=== PATIENT | female | born 1935 | race Caucasian/White ===

== ENCOUNTER 2016-12-07 17:23 | Inpatient (IN) | payer OTHER ==
[~2016-12-07] VITALS: Ht 147.3 cm; Wt 55.1 kg
[~2016-12-07 17:23] MED LIST: ATOR20TA58 PO; CLOP75TA PO; HYDR200T5 PO; IBUP200T77 PO; LEVO250T25 PO; LISI10TA2 PO; LOPE2CAP PO; LOSA50TA6 PO; NABU500T PO; OMEP40CA5 PO; PROM12.56 PO
[2016-12-07 18:29] LABS: BASO % 0 % (0-3); EOS % 0 % (0-3); HEMATOCRIT 27.9 % (36.0-47.0); LYMPH # 0.1 x10^3/uL (1.0-4.8); LYMPH % 1 % (24-48); MEAN CORPUSCULAR HEMOGLOBIN 27 pg (25-35); MEAN CORPUSCULAR HGB CONC 32 g/dL (31-37); MEAN CORPUSCULAR VOLUME 82 fL (79-100); MONO % 4 % (0-9); NEUT % 94 % (31-73); PLATELET COUNT 148 x10^3/uL (140-400); RED BLOOD COUNT 3.39 x10^6/uL (3.50-5.40); RED CELL DISTRIBUTION WIDTH 19.1 % (11.5-14.5); WHITE BLOOD COUNT 5.2 x10^3/uL (4.0-11.0)
[2016-12-07] MEDS ORDERED: IPRATRPIUM/ALBUTEROL 0.5/2.5MG 3 ML NEBU. NEB ONE (18:30)
[2016-12-07 19:03] LABS: CALCIUM 8.3 mg/dL (8.5-10.1); CREATININE 0.9 mg/dL (0.6-1.0); GFR 60.4; POTASSIUM 4.3 mmol/L (3.5-5.1)
[2016-12-07 19:11] LABS: ALBUMIN 2.2 g/dL (3.4-5.0); ALBUMIN/GLOBULIN RATIO 0.7 (1.0-1.7); TOTAL BILIRUBIN 0.7 mg/dL (0.2-1.0); TOTAL PROTEIN 5.5 g/dL (6.4-8.2)
[2016-12-07 19:15] LABS: OBC FLU VALID
[2016-12-07 19:31] LABS: ANISOCYTOSIS SLIGHT; OVALOCYTES FEW; PLT ESTIMATE ADEQUATE (ADEQUATE); POIKILOCYTOSIS MOD; SCHISTOCYTES FEW
[2016-12-07 19:32] LABS: TOXIC GRANULATION PRESENT
[2016-12-07] MEDS ORDERED: HEPARIN for IV BOLUS 10,000 UNIT/10 ML VIAL. IV PRN (20:00)
[2016-12-07] MEDS: HEPARIN 25,000UTS/500ML PREMIX 500 ML IV PRN (20:18)
[2016-12-07] MEDS ORDERED: HEPARIN for IV BOLUS 10,000 UNIT/10 ML VIAL. IV ONE (20:30)
[2016-12-07] MEDS ORDERED: VANCOMYCIN 1.5 GM in IV NORMAL SALINE 500ML BAG 500 ML IV ONE (20:30)
[2016-12-07] MEDS ORDERED: FUROSEMIDE 20 MG/2 ML VIAL IVP ONE (20:45)
[2016-12-07] MEDS: VANCOMYCIN PER PHARMACY MC PRN (21:11)
[2016-12-07 22:08] LABS: INR 1.2 (0.8-1.1); PROTHROMBIN TIME PATIENT 14.9 SEC (11.7-14.0)
[2016-12-07 22:14] LABS: PARTIAL THROMBOPLASTIN TIME > 150 SEC (24-38)
[2016-12-07] MEDS ORDERED: NITROGLYCERIN SUBLINGUAL 0.4 MG BOTTLE OF 25. SL PRN (22:15)
[2016-12-07] MEDS ORDERED: ONDANSETRON PF 4 MG/2 ML VIAL. IV PRN (22:15)
[2016-12-07] MEDS ORDERED: ACETAMINOPHEN 325 MG TABLET. PO PRN (22:15)
--- NOTE | 2016-12-07 23:20 | ED.ADGEN ---
Past Medical History Past Medical History: CVA, GERD, Hypertension Additional Past Medical Histor: Rt sided weakness Past Surgical History: No Surgical History Alcohol Use: None Drug Use: None Adult General Chief Complaint Chief Complaint: CHEST PAIN HPI HPI Patient is a 81 year old woman, history of hypertension, CVA with residual right-sided weakness, idiopathic pulmonary fibrosis, who is currently on doxycycline and oral steroids along with nebulizer treatments, who presents to the emergency department with a complaint of increased difficulty breathing and coughing over the past several days. Patient states that she was seen by several days ago, and as she was started on the antibiotics. She states she's been compliant with all medications. She has no history of cardiac disease. She states that she was woken from sleep by chest pain yesterday morning, states it is located in the center of her chest, a burning pressure sensation, and resolved after about half an hour. She denies any nausea or vomiting, any focal weakness numbness or tingling, any injuries. Denies any chest pain currently, complaining primarily of shortness of breath and nonproductive cough with generalized malaise, subjective fevers and chills. She did receive reflexive patient this year. Review of Systems Review of Systems Constitutional: Denies fever or chills. [] Eyes: Denies change in visual acuity. [] HENT: Denies nasal congestion or sore throat. [] Respiratory: Cough, shortness of breath worsening over the past several days. Cardiovascular: Chest pain that occurred yesterday, no edema. No chest pain since that time. GI: Denies abdominal pain, nausea, vomiting, bloody stools or diarrhea. [] : Denies dysuria. [] Musculoskeletal: Denies back pain or joint pain. [] Integument: Denies rash. [] Neurologic: Denies headache, focal weakness or sensory changes. [] Endocrine: Denies polyuria or polydipsia. [] Lymphatic: Denies swollen glands. [] Psychiatric: Denies depression or anxiety. [] Current Medications Current Medications Current Medications Medications (Trade) Dose Ordered Sig/Michela Start Time Stop Time Status Last Admin Dose Admin Acetaminophen (Tylenol) 650 mg PRN Q4HRS PRN 12/07/16 22:15 12/08/16 22:14 Albuterol/ Ipratropium (Duoneb) 3 ml RTQID 12/08/16 08:00 12/09/16 07:59 Albuterol/ Ipratropium 3 ml 3 ml 1X ONCE 12/07/16 18:30 12/07/16 18:31 DC 12/07/16 18:26 3 ML Furosemide 20 mg 20 mg 1X ONCE 12/07/16 20:45 12/07/16 20:46 DC 12/07/16 22:03 20 MG Heparin Sodium (Porcine) 1500 unit 1,500 unit PRN Q6HRS PRN 12/07/16 20:00 Heparin Sodium (Porcine) 3600 unit 3,600 unit 1X ONCE 12/07/16 20:30 12/07/16 20:31 DC 12/07/16 20:17 3,600 UNIT Heparin Sodium/ Dextrose 500 ml @ 0 mls/hr CONT PRN 12/07/16 20:00 12/07/16 20:18 14.5 MLS/HR Methylprednisolone Sodium Succinate (Solu-Medrol 40mg Vial) 40 mg Q8HRS 12/08/16 06:00 Nitroglycerin (Nitrostat) 0.4 mg PRN Q5MIN PRN 12/07/16 22:15 12/08/16 22:14 Ondansetron HCl (Zofran) 4 mg PRN Q8HRS PRN 12/07/16 22:15 12/08/16 22:14 Oseltamivir Phosphate (Tamiflu) 75 mg 1X ONCE 12/07/16 23:30 12/07/16 23:31 DC Piperacillin Sod/ Tazobactam Sod 3.375 gm/Sodium Chloride 50 ml @ 100 mls/hr Q6HRS 12/07/16 23:00 Piperacillin Sod/ Tazobactam Sod/ Sodium Chloride (Zosyn/Iv Sodium Chloride 0.9% 100ml) 100 ml @ 200 mls/hr Q6HRS 12/08/16 00:00 UNV Vancomycin HCl 1 each 1X ONCE 12/09/16 19:30 12/09/16 19:31 Vancomycin HCl (Vanco Per Pharmacy) 1 each PRN DAILY PRN 12/07/16 20:00 12/07/16 21:11 1 EACH Vancomycin HCl/ Sodium Chloride (Iv Sodium Chloride 0.9% 250ml) 250 ml @ 250 mls/hr Q24H 12/08/16 20:00 Vancomycin HCl/ Sodium Chloride (Iv Sodium Chloride 0.9% 500ml Bag) 500 ml @ 250 mls/hr 1X ONCE 12/07/16 20:30 12/07/16 22:29 DC 12/07/16 20:30 250 MLS/HR Allergies Allergies Allergies Coded Allergies Type Severity Reaction Last Updated Verified Sulfa (Sulfonamide Antibiotics) Allergy Intermediate 07/16/16 Yes Physical Exam Physical Exam Constitutional: Well developed, well nourished, no acute distress, non-toxic appearance. [] HENT: Normocephalic, atraumatic, bilateral external ears normal, oropharynx moist, no oral exudates, nose normal. [] Eyes: PERRLA, EOMI, conjunctiva normal, no discharge. [] Neck: Normal range of motion, no tenderness, supple, no stridor. [] Cardiovascular:Heart rate regular rhythm, no murmur [] Lungs & Thorax: Bilateral breath sounds clear to auscultation [] Abdomen: Bowel sounds normal, soft, no tenderness, no masses, no pulsatile masses. [] Skin: Warm, dry, no erythema, no rash. [] Back: No tenderness, no CVA tenderness. [] Extremities: No tenderness, no cyanosis, no clubbing, ROM intact, no edema. [] Neurologic: Alert and oriented X 3, normal motor function, normal sensory function, no focal deficits noted. [] Psychologic: Affect normal, judgement normal, mood normal. [] Current Patient Data Vital Signs Vital Signs Date Time Temp Pulse Resp B/P Pulse Ox O2 Delivery O2 Flow Rate FiO2 12/07/16 18:26 95 Room Air 12/07/16 17:50 98.3 87 26 157/75 98.3 Lab Values Laboratory Tests Test 12/07/16 18:15 12/07/16 18:18 12/07/16 21:52 Influenza Type A Antigen Positive (NEGATIVE) Influenza Type B Antigen Negative (NEGATIVE) White Blood Count 5.2x10^3/uL (4.0-11.0) Red Blood Count 3.39x10^6/uL (3.50-5.40) L Hemoglobin 9.0g/dL (12.0-15.5) L Hematocrit 27.9% (36.0-47.0) L Mean Corpuscular Volume 82fL (79-100) Mean Corpuscular Hemoglobin 27pg (25-35) Mean Corpuscular Hemoglobin Concent 32g/dL (31-37) Red Cell Distribution Width 19.1% (11.5-14.5) H Platelet Count 148x10^3/uL (140-400) Neutrophils (%) (Auto) 94% (31-73) H Lymphocytes (%) (Auto) 1% (24-48) L Monocytes (%) (Auto) 4% (0-9) Eosinophils (%) (Auto) 0% (0-3) Basophils (%) (Auto) 0% (0-3) Neutrophils # (Auto) 4.9x10^3uL (1.8-7.7) Lymphocytes # (Auto) 0.1x10^3/uL (1.0-4.8) L Monocytes # (Auto) 0.2x10^3/uL (0.0-1.1) Eosinophils # (Auto) 0.0x10^3/uL (0.0-0.7) Basophils # (Auto) 0.0x10^3/uL (0.0-0.2) Segmented Neutrophils % 77% (35-66) H Band Neutrophils % 17% (0-9) H Monocytes % 6% (0-10) Toxic Granulation Present Platelet Estimate Adequate (ADEQUATE) Poikilocytosis Mod Anisocytosis Slight Ovalocytes Few Schistocytes Few RBC Morphology Bizarre Forms Few Sodium Level 138mmol/L (136-145) Potassium Level 4.3mmol/L (3.5-5.1) Chloride Level 101mmol/L (98-107) Carbon Dioxide Level 25mmol/L (21-32) Anion Gap 12 (6-14) Blood Urea Nitrogen 22mg/dL (7-20) H Creatinine 0.9mg/dL (0.6-1.0) Estimated GFR (Cockcroft-Gault) 60.4 BUN/Creatinine Ratio 24 (6-20) H Glucose Level 174mg/dL (70-99) H Calcium Level 8.3mg/dL (8.5-10.1) L Total Bilirubin 0.7mg/dL (0.2-1.0) Aspartate Amino Transferase (AST) 42U/L (15-37) H Alanine Aminotransferase (ALT) 10U/L (14-59) L Alkaline Phosphatase 89U/L (46-116) Troponin I Quantitative 2.198ng/mL (0.000-0.055) LR-Yuy-E-Type Natriuretic Peptide 19305xa/mL (0-449) H Total Protein 5.5g/dL (6.4-8.2) L Albumin 2.2g/dL (3.4-5.0) L Albumin/Globulin Ratio 0.7 (1.0-1.7) L Prothrombin Time 14.9SEC (11.7-14.0) H Prothrombin Time INR 1.2 (0.8-1.1) H PTT > 150SEC (24-38) *H Laboratory Tests 12/07/16 18:18 Laboratory Tests 12/07/16 18:18 EKG EKG EC: Sinus rhythm, heart rate 90 beats minute, left axis deviation with left internal hypertrophy, QTC is prolonged at 509, HI 146, QRS of 90, patient with contour abnormalities noted in the inferior and anterior leads, but no ST elevations or depressions, abnormal ECG, does not meet STEMI criteria. Radiology/Procedures Radiology/Procedures Chest x-ray: One view: Patient with infiltrate versus scarring noted throughout the lungs bilaterally, with significant bronchopulmonary thickening, progressed swelling compared to previous x-ray. Possible infectious versus inflammatory process, may be chronic. As interpreted by me.] Course & Med Decision Making Course & Med Decision Making Pertinent Labs and Imaging studies reviewed. (See chart for details) Patient well-appearing, weak and coughing. Chest x-ray is concerning for possible worsening infiltrate versus CHF, versus underlying pulmonary fibrosis. Laboratory studies reveal a leukocytosis with left shift and mild bandemia, influenza A is positive in the ED. Patient was initiated on antibiotics due to her leukocytosis and x-ray findings, although this may be viral in nature, therefore patient also received Tamiflu. Patient's troponin was positive at 2.198, with an elevated proBNP. This was discussed with Dr. Hill of cardiology, who requests patient be anticoagulated with heparin, made nothing by mouth after midnight for catheterization in the a.m. Patient and family are agreeable with this plan when findings as above and recommendations were discussed at bedside, risk versus benefit of anticoagulation discussed in detail. Patient is resting comfortably at this time, oxygen saturation remains in the upper 90s, heart rate is in the 80s, respiratory rate is 20 and unlabored. Findings as above discussed with Dr. Rodriguez of internal medicine, patient accepted to her service as a full admission to the ICU. Patient initiated on antibiotics, heparin drip in the ED without issue. Dragon Disclaimer Dragon Disclaimer This electronic medical record was generated, in whole or in part, using a voice recognition dictation system. Departure Impression: Primary Impression: Elevated troponin Additional Impressions: Non-STEMI (non-ST elevated myocardial infarction) Influenza Idiopathic pulmonary fibrosis Disposition: ADMITTED INPATIENT Admitting Physician: Other Condition: IMPROVED Problem Qualifiers MANI NIXON DO Dec 07, 2016 23:20
[2016-12-07] MEDS ORDERED: OSELTAMIVIR 75 MG CAPSULE PO ONE (23:30)
[2016-12-08] VITALS (24 sets, daily range): BP systolic 96–138; BP diastolic 45–86
[2016-12-08] MEDS ORDERED: PIPERACILLIN/TAZOBACTAM 4.5 GM in IV NORMAL SALINE 100ML 100 ML IV SCH ×2
[2016-12-08] MEDS ORDERED: LOPERAMIDE 2 MG CAPSULE PO PRN (00:15)
[2016-12-08] MEDS: PIPERACILLIN/TAZOBACTAM 3.375 GM in IV NORMAL SALINE 50ML 50 ML IV SCH ×4 (00:35→17:15)
--- NOTE | 2016-12-08 00:38 | ACF ---
Admission Forms Criteria MYOCARDIAL INFARCTION Clinical Indications for Admission to Inpatient Care (Place 'X' for any and all applicable criteria): Admission is indicated for ANY ONE of the following (1)(2)(3)(4): [X]I. Acute MD [ ]II. Contraindications and/or Inappropriate clinical situations for Observational Care in patients with Myocardial Infarction, when ANY ONE of the following is required: [ ]a) Patient with High risk of cardiac embolism (e.g, patients with previous cardiac embolism, LVEF < 40%, age >75 and patients with prosthetic valve) 18 [ ]b) Patient with Moderate risk including DM patient, CAD and patient aged 65-75 18 [ ]c) Patient with any change in cardiac biomarker especially troponin should be managed as high risk in an inpatient setting 19 [ ]d) Physician judgement irrespective of ECG and other diagnostic findings 20 [ ]III.General contraindications and/or Inappropriate clinical situations for Observational Care in patients with Myocardial Infarction, when ANY ONE of the following is required: [ ]a) Prediction of prolongation of LOS based on ANY ONE of the following may be considered as a contraindication for observational care 2, 3, 4, 5, 6, 7, 8, 9, 10, 11 [ ]i) Age > 65 yrs. [ ]ii) Patient arriving by ambulance [ ]iii) Patient with high acuity [ ]iv) Patient requiring vital sign monitoring [ ]v) Patient on IV medication [ ]b) Systolic blood pressures 180mmHg 3,12 [ ]c) Patient with altered mental status including delirium and other alteration of consciousness, (3) [ ]d) Patient whose discharge disposition will be to a senior living home or rehabilitation home should not be managed in Emergency Department Observation Unit. CMS rule requires 3 days hospital stay before such placement. 3,13 [ ]e) Patient with failure to thrive due to broad array of etiologies 3 ,16,17 [ ]f) Inability to ambulate 3,14 Extended stay beyond goal length of stay may be needed for (1)(18)(20)(24)(25): [ ]a) Hemodynamic instability, persisting symptoms after intensive medical management, or recurring severe, prolonged symptoms [ ]b) Intravascular procedural complications such as acute vessel closure, stent thrombosis, stent malposition, or vessel dissection (26)(27)(28) [ ]c) Extravascular procedural complications such as retroperitoneal hematoma , pericardial effusion, or cardiac tamponade [ ]d) Entry site complications causing bleeding, hematoma or distal ischemia and requiring ongoing monitoring, surgical repair or surgical thrombectomy(29) [ ]e) Dangerous arrhythmia [ ]f) Complicated percutaneous coronary intervention (e.g., unsuccessful percutaneous coronary intervention or percutaneous coronary intervention of non- [place] vessel) [ ]g) Urgent or emergent surgery for complications of MD (e.g., ventricular rupture, valvular insufficiency) [ ]h) Surgical revascularization via coronary artery bypass graft [ ]i) Heart failure (e.g., pulmonary edema) [ ]j) Unstable pulmonary comorbidities, including COPD or pneumonia (31) [ ]k) Acute renal failure The original [email or web address] content created by [email or web address] has been revised. The portions of the content which have been revised are identified through the use of italic text or in bold, and [employer] has neither reviewed nor approved the modified material. All other unmodified content is copyright [facility] Please see references footnoted in the original [facility] edition 2016 Admission Criteria Met?: Yes GIOVANNY CLEMENTS Dec 08, 2016 00:38
[2016-12-08] MEDS ORDERED: PROAIR HFA8.5 GM INH (03:54)
[2016-12-08] MEDS ORDERED: MELO-150 PO (03:54)
[2016-12-08] MEDS ORDERED: LEFL10TA14 PO (03:54)
[2016-12-08] MEDS ORDERED: FOLI1TAB16 PO (03:54)
[2016-12-08] MEDS ORDERED: SENN8.6T11 PO (03:54)
[2016-12-08] MEDS ORDERED: PRED-220 PO (03:54)
[2016-12-08] MEDS ORDERED: TRAM50TA PO (03:54)
[2016-12-08] MEDS ORDERED: IBUPROFEN 200 MG TABLET PO PRN (06:00)
[2016-12-08] MEDS ORDERED: methylPREDNISolone SOD SUCC PF 40 MG/ML VIAL. IV SCH (06:00)
[2016-12-08] MEDS: LOSARTAN POTASSIUM 50 MG TABLET. PO SCH (08:22)
[2016-12-08] MEDS: CLOPIDOGREL BISULFATE 75 MG TABLET PO SCH (08:23)
[2016-12-08] MEDS: LISINOPRIL 10 MG TABLET PO SCH (08:24)
[2016-12-08] MEDS: OSELTAMIVIR 75 MG CAPSULE PO SCH ×2 (08:25→21:15)
[2016-12-08] MEDS: PANTOPRAZOLE 40 MG TABLET. PO SCH (08:26)
[2016-12-08] MEDS: FUROSEMIDE 20 MG TABLET PO SCH (08:26)
[2016-12-08] MEDS: HYDROXYCHLOROQUINE 200 MG TABLET PO SCH ×2 (08:27→21:15)
--- NOTE | 2016-12-08 08:27 | EKG ---
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
[2016-12-08] MEDS: IPRATRPIUM/ALBUTEROL 0.5/2.5MG 3 ML NEBU. NEB SCH ×4 (08:34→19:33)
--- NOTE | 2016-12-08 09:09 | RAD ---
Portable AP chest. History: Cough, chest pain, hypertension Portable AP view was taken of the chest. The patient is mildly rotated to the right. The mediastinum is widened with possible mediastinal adenopathy. Heart is normal in size. There is no pleural effusion. There is diffuse alveolar and interstitial lung disease. CT of the chest would be of benefit for further evaluation. Impression: 1. Bilateral infiltrates. 2. Possible mediastinal adenopathy.
[2016-12-08] MEDS: VANCOMYCIN PER PHARMACY MC PRN (09:23)
[2016-12-08] MEDS: ANTI-COAG MONITOR BY PHARMACY. MC PRN (09:30)
[2016-12-08 11:44] LABS: BASO % 1 % (0-3); EOS % 0 % (0-3); HEMOGLOBIN 8.7 g/dL (12.0-15.5); LYMPH # 0.2 x10^3/uL (1.0-4.8); LYMPH % 3 % (24-48); MEAN CORPUSCULAR HEMOGLOBIN 27 pg (25-35); MEAN CORPUSCULAR HGB CONC 32 g/dL (31-37); MEAN CORPUSCULAR VOLUME 82 fL (79-100); MONO % 5 % (0-9); NEUT % 92 % (31-73); PLATELET COUNT 141 x10^3/uL (140-400); RED BLOOD COUNT 3.28 x10^6/uL (3.50-5.40); RED CELL DISTRIBUTION WIDTH 18.5 % (11.5-14.5); WHITE BLOOD COUNT 6.1 x10^3/uL (4.0-11.0)
[2016-12-08 11:55] LABS: CALCIUM 8.4 mg/dL (8.5-10.1); GFR 53.5; POTASSIUM 3.3 mmol/L (3.5-5.1)
[2016-12-08] MEDS ORDERED: POTASSIUM CHLORIDE 20 MEQ TABLET.ER. PO ONE (12:30)
--- NOTE | 2016-12-08 13:21 | PDOC ---
PULMONARY PROGRESS NOTES Vitals Vital Signs Date Time Temp Pulse Resp B/P Pulse Ox O2 Delivery O2 Flow Rate FiO2 12/08/16 12:02 99 Nasal Cannula 2.0 12/08/16 12:00 98.6 90 19 101/80 98.6 Lungs: Clear Labs Laboratory Tests Test 12/07/16 18:15 12/07/16 18:18 12/07/16 21:52 12/08/16 02:30 Influenza Type A Antigen Positive (NEGATIVE) Influenza Type B Antigen Negative (NEGATIVE) White Blood Count 5.2x10^3/uL (4.0-11.0) Red Blood Count 3.39x10^6/uL (3.50-5.40) Hemoglobin 9.0g/dL (12.0-15.5) Hematocrit 27.9% (36.0-47.0) Mean Corpuscular Volume 82fL (79-100) Mean Corpuscular Hemoglobin 27pg (25-35) Mean Corpuscular Hemoglobin Concent 32g/dL (31-37) Red Cell Distribution Width 19.1% (11.5-14.5) Platelet Count 148x10^3/uL (140-400) Neutrophils (%) (Auto) 94% (31-73) Lymphocytes (%) (Auto) 1% (24-48) Monocytes (%) (Auto) 4% (0-9) Eosinophils (%) (Auto) 0% (0-3) Basophils (%) (Auto) 0% (0-3) Neutrophils # (Auto) 4.9x10^3uL (1.8-7.7) Lymphocytes # (Auto) 0.1x10^3/uL (1.0-4.8) Monocytes # (Auto) 0.2x10^3/uL (0.0-1.1) Eosinophils # (Auto) 0.0x10^3/uL (0.0-0.7) Basophils # (Auto) 0.0x10^3/uL (0.0-0.2) Segmented Neutrophils % 77% (35-66) Band Neutrophils % 17% (0-9) Monocytes % 6% (0-10) Toxic Granulation Present Platelet Estimate Adequate (ADEQUATE) Poikilocytosis Mod Anisocytosis Slight Ovalocytes Few Schistocytes Few RBC Morphology Bizarre Forms Few Sodium Level 138mmol/L (136-145) Potassium Level 4.3mmol/L (3.5-5.1) Chloride Level 101mmol/L (98-107) Carbon Dioxide Level 25mmol/L (21-32) Anion Gap 12 (6-14) Blood Urea Nitrogen 22mg/dL (7-20) Creatinine 0.9mg/dL (0.6-1.0) Estimated GFR (Cockcroft-Gault) 60.4 BUN/Creatinine Ratio 24 (6-20) Glucose Level 174mg/dL (70-99) Calcium Level 8.3mg/dL (8.5-10.1) Total Bilirubin 0.7mg/dL (0.2-1.0) Aspartate Amino Transf (AST/SGOT) 42U/L (15-37) Alanine Aminotransferase (ALT/SGPT) 10U/L (14-59) Alkaline Phosphatase 89U/L (46-116) Troponin I Quantitative 2.198ng/mL (0.000-0.055) 2.084ng/mL (0.000-0.055) XH-Xvv-C-Type Natriuretic Peptide 29286lv/mL (0-449) Total Protein 5.5g/dL (6.4-8.2) Albumin 2.2g/dL (3.4-5.0) Albumin/Globulin Ratio 0.7 (1.0-1.7) Prothrombin Time 14.9SEC (11.7-14.0) Prothromb Time International Ratio 1.2 (0.8-1.1) Activated Partial Thromboplast Time > 150SEC (24-38) Heparin Anti-Xa Act, Unfractionated 0.28IU/mL (0.30-0.70) Test 12/08/16 09:00 12/08/16 11:35 Heparin Anti-Xa Act, Unfractionated 0.52IU/mL (0.30-0.70) Troponin I Quantitative 1.331ng/mL (0.000-0.055) White Blood Count 6.1x10^3/uL (4.0-11.0) Red Blood Count 3.28x10^6/uL (3.50-5.40) Hemoglobin 8.7g/dL (12.0-15.5) Hematocrit 27.0% (36.0-47.0) Mean Corpuscular Volume 82fL (79-100) Mean Corpuscular Hemoglobin 27pg (25-35) Mean Corpuscular Hemoglobin Concent 32g/dL (31-37) Red Cell Distribution Width 18.5% (11.5-14.5) Platelet Count 141x10^3/uL (140-400) Neutrophils (%) (Auto) 92% (31-73) Lymphocytes (%) (Auto) 3% (24-48) Monocytes (%) (Auto) 5% (0-9) Eosinophils (%) (Auto) 0% (0-3) Basophils (%) (Auto) 1% (0-3) Neutrophils # (Auto) 5.6x10^3uL (1.8-7.7) Lymphocytes # (Auto) 0.2x10^3/uL (1.0-4.8) Monocytes # (Auto) 0.3x10^3/uL (0.0-1.1) Eosinophils # (Auto) 0.0x10^3/uL (0.0-0.7) Basophils # (Auto) 0.0x10^3/uL (0.0-0.2) Sodium Level 138mmol/L (136-145) Potassium Level 3.3mmol/L (3.5-5.1) Chloride Level 101mmol/L (98-107) Carbon Dioxide Level 27mmol/L (21-32) Anion Gap 10 (6-14) Blood Urea Nitrogen 21mg/dL (7-20) Creatinine 1.0mg/dL (0.6-1.0) Estimated GFR (Cockcroft-Gault) 53.5 Glucose Level 122mg/dL (70-99) Calcium Level 8.4mg/dL (8.5-10.1) Laboratory Tests Test 12/07/16 18:15 12/07/16 18:18 12/07/16 21:52 12/08/16 02:30 Influenza Type A Antigen Positive (NEGATIVE) Influenza Type B Antigen Negative (NEGATIVE) White Blood Count 5.2x10^3/uL (4.0-11.0) Red Blood Count 3.39x10^6/uL (3.50-5.40) Hemoglobin 9.0g/dL (12.0-15.5) Hematocrit 27.9% (36.0-47.0) Mean Corpuscular Volume 82fL (79-100) Mean Corpuscular Hemoglobin 27pg (25-35) Mean Corpuscular Hemoglobin Concent 32g/dL (31-37) Red Cell Distribution Width 19.1% (11.5-14.5) Platelet Count 148x10^3/uL (140-400) Neutrophils (%) (Auto) 94% (31-73) Lymphocytes (%) (Auto) 1% (24-48) Monocytes (%) (Auto) 4% (0-9) Eosinophils (%) (Auto) 0% (0-3) Basophils (%) (Auto) 0% (0-3) Neutrophils # (Auto) 4.9x10^3uL (1.8-7.7) Lymphocytes # (Auto) 0.1x10^3/uL (1.0-4.8) Monocytes # (Auto) 0.2x10^3/uL (0.0-1.1) Eosinophils # (Auto) 0.0x10^3/uL (0.0-0.7) Basophils # (Auto) 0.0x10^3/uL (0.0-0.2) Segmented Neutrophils % 77% (35-66) Band Neutrophils % 17% (0-9) Monocytes % 6% (0-10) Toxic Granulation Present Platelet Estimate Adequate (ADEQUATE) Poikilocytosis Mod Anisocytosis Slight Ovalocytes Few Schistocytes Few RBC Morphology Bizarre Forms Few Sodium Level 138mmol/L (136-145) Potassium Level 4.3mmol/L (3.5-5.1) Chloride Level 101mmol/L (98-107) Carbon Dioxide Level 25mmol/L (21-32) Anion Gap 12 (6-14) Blood Urea Nitrogen 22mg/dL (7-20) Creatinine 0.9mg/dL (0.6-1.0) Estimated GFR (Cockcroft-Gault) 60.4 BUN/Creatinine Ratio 24 (6-20) Glucose Level 174mg/dL (70-99) Calcium Level 8.3mg/dL (8.5-10.1) Total Bilirubin 0.7mg/dL (0.2-1.0) Aspartate Amino Transf (AST/SGOT) 42U/L (15-37) Alanine Aminotransferase (ALT/SGPT) 10U/L (14-59) Alkaline Phosphatase 89U/L (46-116) Troponin I Quantitative 2.198ng/mL (0.000-0.055) 2.084ng/mL (0.000-0.055) FE-Ckg-M-Type Natriuretic Peptide 28670dq/mL (0-449) Total Protein 5.5g/dL (6.4-8.2) Albumin 2.2g/dL (3.4-5.0) Albumin/Globulin Ratio 0.7 (1.0-1.7) Prothrombin Time 14.9SEC (11.7-14.0) Prothromb Time International Ratio 1.2 (0.8-1.1) Activated Partial Thromboplast Time > 150SEC (24-38) Heparin Anti-Xa Act, Unfractionated 0.28IU/mL (0.30-0.70) Test 12/08/16 09:00 12/08/16 11:35 Heparin Anti-Xa Act, Unfractionated 0.52IU/mL (0.30-0.70) Troponin I Quantitative 1.331ng/mL (0.000-0.055) White Blood Count 6.1x10^3/uL (4.0-11.0) Red Blood Count 3.28x10^6/uL (3.50-5.40) Hemoglobin 8.7g/dL (12.0-15.5) Hematocrit 27.0% (36.0-47.0) Mean Corpuscular Volume 82fL (79-100) Mean Corpuscular Hemoglobin 27pg (25-35) Mean Corpuscular Hemoglobin Concent 32g/dL (31-37) Red Cell Distribution Width 18.5% (11.5-14.5) Platelet Count 141x10^3/uL (140-400) Neutrophils (%) (Auto) 92% (31-73) Lymphocytes (%) (Auto) 3% (24-48) Monocytes (%) (Auto) 5% (0-9) Eosinophils (%) (Auto) 0% (0-3) Basophils (%) (Auto) 1% (0-3) Neutrophils # (Auto) 5.6x10^3uL (1.8-7.7) Lymphocytes # (Auto) 0.2x10^3/uL (1.0-4.8) Monocytes # (Auto) 0.3x10^3/uL (0.0-1.1) Eosinophils # (Auto) 0.0x10^3/uL (0.0-0.7) Basophils # (Auto) 0.0x10^3/uL (0.0-0.2) Sodium Level 138mmol/L (136-145) Potassium Level 3.3mmol/L (3.5-5.1) Chloride Level 101mmol/L (98-107) Carbon Dioxide Level 27mmol/L (21-32) Anion Gap 10 (6-14) Blood Urea Nitrogen 21mg/dL (7-20) Creatinine 1.0mg/dL (0.6-1.0) Estimated GFR (Cockcroft-Gault) 53.5 Glucose Level 122mg/dL (70-99) Calcium Level 8.4mg/dL (8.5-10.1) Medications Active Scripts Medications Dose Route/Sig Days Date Category Senna Laxative (Sennosides) 8.6 Mg Tablet 8.6 Mg PO 12/08/16 Reported Tramadol Hcl 50 Mg Tablet 1 Tab PO PRN Q6HRS 12/08/16 Reported Proair Hfa Inhaler (Albuterol Sulfate) 8.5 Gm Hfa.aer.ad 1 Puff INH PRN Q6HRS PRN 12/08/16 Reported Meloxicam 15 Mg Tablet 1 Tab PO DAILY 12/08/16 Reported Prednisone 10 Mg Tablet 10 Mg PO DAILY 12/08/16 Reported Leflunomide 10 Mg Tablet 10 Mg PO 12/08/16 Reported Folic Acid 1 Mg Tablet 1 Tab PO DAILY 12/08/16 Reported Levaquin (Levofloxacin) 250 Mg Tablet 250 Mg PO DAILY 06/29/15 Rx Loperamide (Loperamide Hcl) 2 Mg Capsule 2 Mg PO PRN Q4HRS PRN 06/26/15 Reported Promethazine Hcl 12.5 Mg Tablet 12.5 Mg PO Q6H PRN 06/26/15 Reported Atorvastatin Calcium 20 Mg Tablet 20 Mg PO DAILY 06/26/15 Reported Clopidogrel (Clopidogrel Bisulfate) 75 Mg Tablet 75 Mg PO DAILY 06/26/15 Reported Losartan Potassium 50 Mg Tablet 50 Mg PO DAILY 06/26/15 Reported Ibuprofen 200 Mg Tablet 200 Mg PO Q6HRS PRN 06/26/15 Reported Nabumetone 500 Mg Tablet 1 Tab PO BID 06/26/15 Reported Lisinopril 10 Mg Tablet 10 Mg PO DAILY 06/26/15 Reported Omeprazole 40 Mg Capsule.dr 40 Mg PO DAILY 06/26/15 Reported Hydroxychloroquine Sulfate 200 Mg Tablet 1 Tab PO BID 06/26/15 Reported Impression . NOTE DICTATED ACUTE RESP FAILURE SEC TO FIBROSIS/INFLUENZA/POSSIBLE IN/POSSIBLE PNEUMONIA\\ THANKS LISA GARCIA MD Dec 08, 2016 13:21
[2016-12-08] MEDS: methylPREDNISolone SOD SUCC PF 125 MG/2 ML VIAL. IV SCH (14:43)
[2016-12-08] MEDS ORDERED: TRAMADOL 50 MG TABLET. PO SCH (15:00)
--- NOTE | 2016-12-08 18:19 | PDOC2 ---
CONSULT Date of Consult Date of Consult DATE: 12/08/16 TIME: 18:11 Reason for Consult Reason for Consult: elevated troponin Referring Physician Referring Physician: Dr. Rodriguez Identification/Chief Complaint Chief Complaint SOB Source Source: Chart review, Patient History of Present Illness Reason for Visit: The patient is a 81-year-old female who presented to the emergency room with episodes of increasing shortness of breath and cough. The patient has a history of idiopathic pulmonary fibrosis and a previous CVA. Initial influenza screening was positive and the patient has been admitted for further treatment and evaluation. Additionally the patient's BNP is significantly elevated at 13, 457, troponin elevated at 2.19, EKG shows septal Q waves and nonspecific ST-T wave changes. Chest x-ray shows bilateral infiltrates. Post treatment the patient reports feeling mildly improved. Past Medical History Cardiovascular: HTN Pulmonary: Bronchitis, Other (idiopathic pulmonary fibrosis.) CENTRAL NERVOUS SYSTEM: CVA GI: GERD Past Surgical History Past Surgical History: No pertinent history Family History Family History: Other (the patient is uncertain.) Social History No Current Problem List Problem List Problems Medical Problems: (1) Elevated troponin Status: Acute (2) Idiopathic pulmonary fibrosis Status: Acute (3) Influenza Status: Acute (4) Non-STEMI (non-ST elevated myocardial infarction) Status: Acute Current Medications Current Medications Current Medications Albuterol/ Ipratropium 3 ml 3 ml 1X ONCE NEB Last administered on 12/07/16 18: 26; Start 12/07/16 at 18:30; Stop 12/07/16 at 18:31; Status DC Piperacillin Sod/ Tazobactam Sod/ Sodium Chloride (Zosyn/Iv Sodium Chloride 0.9 % 100ml) 100 ml @ 200 mls/hr Q6HRS IV ; Start 12/08/16 at 00:00; Status UNV Vancomycin HCl (Vanco Per Pharmacy) 1 each PRN DAILY PRN MC SEE COMMENTS Last administered on 12/08/16 09:23; Start 12/07/16 at 20:00 Heparin Sodium (Porcine) 3600 unit 3,600 unit 1X ONCE IV Last administered on 12/07/16 20:17; Start 12/07/16 at 20:30; Stop 12/07/16 at 20:31; Status DC Heparin Sodium/ Dextrose 500 ml @ 0 mls/hr CONT PRN IV SEE I/O RECORD Last administered on 12/07/16 20:18; Start 12/07/16 at 20:00 Heparin Sodium (Porcine) 1500 unit 1,500 unit PRN Q6HRS PRN IV FOR UFH LEVEL LESS THAN 0.2; Start 12/07/16 at 20:00 Vancomycin HCl/ Sodium Chloride (Iv Sodium Chloride 0.9% 500ml Bag) 500 ml @ 250 mls/hr 1X ONCE IV Last administered on 12/07/16 20:30; Start 12/07/16 at 20 :30; Stop 12/07/16 at 22:29; Status DC Furosemide 20 mg 20 mg 1X ONCE IVP Last administered on 12/07/16 22:03; Start 12/07/16 at 20:45; Stop 12/07/16 at 20:46; Status DC Piperacillin Sod/ Tazobactam Sod 3.375 gm/Sodium Chloride 50 ml @ 100 mls/hr Q6HRS IV Last administered on 12/08/16 17:15; Start 12/07/16 at 23:00 Vancomycin HCl/ Sodium Chloride (Iv Sodium Chloride 0.9% 250ml) 250 ml @ 250 mls/hr Q24H IV ; Start 12/08/16 at 20:00 Vancomycin HCl 1 each 1X ONCE MC ; Start 12/09/16 at 19:30; Stop 12/09/16 at 19: 31 Ondansetron HCl (Zofran) 4 mg PRN Q8HRS PRN IV NAUSEA/VOMITING Last administered on 12/08/16 02:44; Start 12/07/16 at 22:15; Stop 12/08/16 at 22:14 Acetaminophen (Tylenol) 650 mg PRN Q4HRS PRN PO FEVER; Start 12/07/16 at 22:15; Stop 12/08/16 at 22:14 Nitroglycerin (Nitrostat) 0.4 mg PRN Q5MIN PRN SL CHEST PAIN; Start 12/07/16 at 22:15; Stop 12/08/16 at 22:14 Albuterol/ Ipratropium (Duoneb) 3 ml RTQID NEB Last administered on 12/08/16 16 :12; Start 12/08/16 at 08:00; Stop 12/09/16 at 07:59 Methylprednisolone Sodium Succinate (Solu-Medrol 40mg Vial) 40 mg Q8HRS IV ; Start 12/08/16 at 06:00; Stop 12/08/16 at 06:00; Status DC Oseltamivir Phosphate (Tamiflu) 75 mg BID PO Last administered on 12/08/16 08: 25; Start 12/08/16 at 09:00; Stop 12/12/16 at 23:59 Oseltamivir Phosphate (Tamiflu) 75 mg 1X ONCE PO Last administered on 00:33; Start 12/07/16 at 23:30; Stop 12/07/16 at 23:31; Status DC Atorvastatin Calcium (Lipitor) 20 mg QHS PO ; Start 12/08/16 at 21:00 Clopidogrel Bisulfate (Plavix) 75 mg DAILY PO Last administered on 12/08/16 08: 23; Start 12/08/16 at 09:00 Hydroxychloroquine Sulfate (Plaquenil) 200 mg BID PO Last administered on 08:27; Start 12/08/16 at 09:00 Ibuprofen (Motrin) 200 mg PRN Q6HRS PRN PO INFLAMMATION; Start 12/08/16 at 06:00 Lisinopril (Prinivil) 10 mg DAILY PO Last administered on 12/08/16 08:24; Start 12/08/16 at 09:00 Loperamide HCl (Imodium) 2 mg PRN Q4HRS PRN PO DIARRHEA; Start 12/08/16 at 00:15 Losartan Potassium (Cozaar) 50 mg DAILY PO Last administered on 12/08/16 08:22 ; Start 12/08/16 at 09:00 Promethazine HCl (Phenergan) 12.5 mg PRN Q6HRS PRN PO NAUSEA/VOMITING; Start at 00:15 Pantoprazole Sodium (Protonix) 40 mg DAILYAC PO Last administered on 12/08/16 08:26; Start 12/08/16 at 07:30 Furosemide (Lasix) 20 mg DAILY PO Last administered on 12/08/16 08:26; Start at 09:00 Info (Anti-Coagulation Monitoring By Pharmacy) 1 each PRN DAILY PRN MC SEE COMMENTS Last administered on 12/08/16 09:30; Start 12/08/16 at 09:30 Potassium Chloride (Klor-Con) 40 meq 1X ONCE PO Last administered on 12/08/16 13:15; Start 12/08/16 at 12:30; Stop 12/08/16 at 12:31; Status DC Methylprednisolone Sodium Succinate (Solu-Medrol 125mg Vial) 125 mg DAILY IV Last administered on 12/08/16 14:43; Start 12/08/16 at 13:30 Folic Acid (Folic Acid) 1 mg DAILY PO ; Start 12/09/16 at 09:00 Leflunomide (Arava) 10 mg DAILY PO ; Start 12/09/16 at 09:00 Levofloxacin (Levaquin) 250 mg DAILY PO ; Start 12/09/16 at 09:00 Prednisone (Prednisone) 10 mg DAILY PO ; Start 12/09/16 at 09:00 Sennosides (Senna) 8.6 mg DAILY PO ; Start 12/09/16 at 09:00 Tramadol HCl (Ultram) 50 mg PRN Q6HRS PO ; Start 12/08/16 at 15:00 Albuterol Sulfate (Ventolin Neb Soln) 2.5 mg PRN Q6HRS PRN NEB SHORTNESS OF BREATH; Start 12/08/16 at 15:00 Meloxicam (Mobic) 15 mg DAILY PO ; Start 12/09/16 at 09:00 Non-Formulary Medication 1 tab BID PO ; Start 12/08/16 at 21:00; Stop 12/08/16 at 21:00; Status DC Active Scripts Active Levaquin (Levofloxacin) 250 Mg Tablet 250 Mg PO DAILY Reported Senna Laxative (Sennosides) 8.6 Mg Tablet 8.6 Mg PO Tramadol Hcl 50 Mg Tablet 1 Tab PO PRN Q6HRS Proair Hfa Inhaler (Albuterol Sulfate) 8.5 Gm Hfa.aer.ad 1 Puff INH PRN Q6HRS PRN Meloxicam 15 Mg Tablet 1 Tab PO DAILY Prednisone 10 Mg Tablet 10 Mg PO DAILY Leflunomide 10 Mg Tablet 10 Mg PO Folic Acid 1 Mg Tablet 1 Tab PO DAILY Loperamide (Loperamide Hcl) 2 Mg Capsule 2 Mg PO PRN Q4HRS PRN Promethazine Hcl 12.5 Mg Tablet 12.5 Mg PO Q6H PRN Atorvastatin Calcium 20 Mg Tablet 20 Mg PO DAILY Clopidogrel (Clopidogrel Bisulfate) 75 Mg Tablet 75 Mg PO DAILY Losartan Potassium 50 Mg Tablet 50 Mg PO DAILY Ibuprofen 200 Mg Tablet 200 Mg PO Q6HRS PRN Nabumetone 500 Mg Tablet 1 Tab PO BID Lisinopril 10 Mg Tablet 10 Mg PO DAILY Omeprazole 40 Mg Capsule.dr 40 Mg PO DAILY Hydroxychloroquine Sulfate 200 Mg Tablet 1 Tab PO BID Allergies Allergies: Coded Allergies: Sulfa (Sulfonamide Antibiotics) (Verified Allergy, Intermediate, 07/16/16) ROS General: YES: Fatigue Respiratory: YES: Cough, SOB with excertion, Shortness of breath Physical Exam General: mild distress HEENT: Atraumatic Lungs: Other (decreased breath sounds) Heart: Other (mild tachycardia) Abdomen: Normal bowel sounds Vitals VITALS Vital Signs Date Time Temp Pulse Resp B/P Pulse Ox O2 Delivery O2 Flow Rate FiO2 12/08/16 18:00 87 28 110/50 98 Nasal Cannula 2.0 12/08/16 16:16 98.4 98.4 Labs Labs Laboratory Tests Test 12/07/16 18:15 12/07/16 18:18 12/07/16 21:52 12/08/16 02:30 Influenza Type A Antigen Positive (NEGATIVE) Influenza Type B Antigen Negative (NEGATIVE) White Blood Count 5.2x10^3/uL (4.0-11.0) Red Blood Count 3.39x10^6/uL (3.50-5.40) Hemoglobin 9.0g/dL (12.0-15.5) Hematocrit 27.9% (36.0-47.0) Mean Corpuscular Volume 82fL (79-100) Mean Corpuscular Hemoglobin 27pg (25-35) Mean Corpuscular Hemoglobin Concent 32g/dL (31-37) Red Cell Distribution Width 19.1% (11.5-14.5) Platelet Count 148x10^3/uL (140-400) Neutrophils (%) (Auto) 94% (31-73) Lymphocytes (%) (Auto) 1% (24-48) Monocytes (%) (Auto) 4% (0-9) Eosinophils (%) (Auto) 0% (0-3) Basophils (%) (Auto) 0% (0-3) Neutrophils # (Auto) 4.9x10^3uL (1.8-7.7) Lymphocytes # (Auto) 0.1x10^3/uL (1.0-4.8) Monocytes # (Auto) 0.2x10^3/uL (0.0-1.1) Eosinophils # (Auto) 0.0x10^3/uL (0.0-0.7) Basophils # (Auto) 0.0x10^3/uL (0.0-0.2) Segmented Neutrophils % 77% (35-66) Band Neutrophils % 17% (0-9) Monocytes % 6% (0-10) Toxic Granulation Present Platelet Estimate Adequate (ADEQUATE) Poikilocytosis Mod Anisocytosis Slight Ovalocytes Few Schistocytes Few RBC Morphology Bizarre Forms Few Sodium Level 138mmol/L (136-145) Potassium Level 4.3mmol/L (3.5-5.1) Chloride Level 101mmol/L (98-107) Carbon Dioxide Level 25mmol/L (21-32) Anion Gap 12 (6-14) Blood Urea Nitrogen 22mg/dL (7-20) Creatinine 0.9mg/dL (0.6-1.0) Estimated GFR (Cockcroft-Gault) 60.4 BUN/Creatinine Ratio 24 (6-20) Glucose Level 174mg/dL (70-99) Calcium Level 8.3mg/dL (8.5-10.1) Total Bilirubin 0.7mg/dL (0.2-1.0) Aspartate Amino Transf (AST/SGOT) 42U/L (15-37) Alanine Aminotransferase (ALT/SGPT) 10U/L (14-59) Alkaline Phosphatase 89U/L (46-116) Troponin I Quantitative 2.198ng/mL (0.000-0.055) 2.084ng/mL (0.000-0.055) EZ-Wvr-E-Type Natriuretic Peptide 79688qj/mL (0-449) Total Protein 5.5g/dL (6.4-8.2) Albumin 2.2g/dL (3.4-5.0) Albumin/Globulin Ratio 0.7 (1.0-1.7) Prothrombin Time 14.9SEC (11.7-14.0) Prothromb Time International Ratio 1.2 (0.8-1.1) Activated Partial Thromboplast Time > 150SEC (24-38) Heparin Anti-Xa Act, Unfractionated 0.28IU/mL (0.30-0.70) Test 12/08/16 09:00 12/08/16 11:35 12/08/16 15:10 Heparin Anti-Xa Act, Unfractionated 0.52IU/mL (0.30-0.70) 0.44IU/mL (0.30-0.70) Troponin I Quantitative 1.331ng/mL (0.000-0.055) White Blood Count 6.1x10^3/uL (4.0-11.0) Red Blood Count 3.28x10^6/uL (3.50-5.40) Hemoglobin 8.7g/dL (12.0-15.5) Hematocrit 27.0% (36.0-47.0) Mean Corpuscular Volume 82fL (79-100) Mean Corpuscular Hemoglobin 27pg (25-35) Mean Corpuscular Hemoglobin Concent 32g/dL (31-37) Red Cell Distribution Width 18.5% (11.5-14.5) Platelet Count 141x10^3/uL (140-400) Neutrophils (%) (Auto) 92% (31-73) Lymphocytes (%) (Auto) 3% (24-48) Monocytes (%) (Auto) 5% (0-9) Eosinophils (%) (Auto) 0% (0-3) Basophils (%) (Auto) 1% (0-3) Neutrophils # (Auto) 5.6x10^3uL (1.8-7.7) Lymphocytes # (Auto) 0.2x10^3/uL (1.0-4.8) Monocytes # (Auto) 0.3x10^3/uL (0.0-1.1) Eosinophils # (Auto) 0.0x10^3/uL (0.0-0.7) Basophils # (Auto) 0.0x10^3/uL (0.0-0.2) Sodium Level 138mmol/L (136-145) Potassium Level 3.3mmol/L (3.5-5.1) Chloride Level 101mmol/L (98-107) Carbon Dioxide Level 27mmol/L (21-32) Anion Gap 10 (6-14) Blood Urea Nitrogen 21mg/dL (7-20) Creatinine 1.0mg/dL (0.6-1.0) Estimated GFR (Cockcroft-Gault) 53.5 Glucose Level 122mg/dL (70-99) Calcium Level 8.4mg/dL (8.5-10.1) Laboratory Tests Test 12/07/16 18:15 12/07/16 18:18 12/07/16 21:52 12/08/16 02:30 Influenza Type A Antigen Positive (NEGATIVE) Influenza Type B Antigen Negative (NEGATIVE) White Blood Count 5.2x10^3/uL (4.0-11.0) Red Blood Count 3.39x10^6/uL (3.50-5.40) Hemoglobin 9.0g/dL (12.0-15.5) Hematocrit 27.9% (36.0-47.0) Mean Corpuscular Volume 82fL (79-100) Mean Corpuscular Hemoglobin 27pg (25-35) Mean Corpuscular Hemoglobin Concent 32g/dL (31-37) Red Cell Distribution Width 19.1% (11.5-14.5) Platelet Count 148x10^3/uL (140-400) Neutrophils (%) (Auto) 94% (31-73) Lymphocytes (%) (Auto) 1% (24-48) Monocytes (%) (Auto) 4% (0-9) Eosinophils (%) (Auto) 0% (0-3) Basophils (%) (Auto) 0% (0-3) Neutrophils # (Auto) 4.9x10^3uL (1.8-7.7) Lymphocytes # (Auto) 0.1x10^3/uL (1.0-4.8) Monocytes # (Auto) 0.2x10^3/uL (0.0-1.1) Eosinophils # (Auto) 0.0x10^3/uL (0.0-0.7) Basophils # (Auto) 0.0x10^3/uL (0.0-0.2) Segmented Neutrophils % 77% (35-66) Band Neutrophils % 17% (0-9) Monocytes % 6% (0-10) Toxic Granulation Present Platelet Estimate Adequate (ADEQUATE) Poikilocytosis Mod Anisocytosis Slight Ovalocytes Few Schistocytes Few RBC Morphology Bizarre Forms Few Sodium Level 138mmol/L (136-145) Potassium Level 4.3mmol/L (3.5-5.1) Chloride Level 101mmol/L (98-107) Carbon Dioxide Level 25mmol/L (21-32) Anion Gap 12 (6-14) Blood Urea Nitrogen 22mg/dL (7-20) Creatinine 0.9mg/dL (0.6-1.0) Estimated GFR (Cockcroft-Gault) 60.4 BUN/Creatinine Ratio 24 (6-20) Glucose Level 174mg/dL (70-99) Calcium Level 8.3mg/dL (8.5-10.1) Total Bilirubin 0.7mg/dL (0.2-1.0) Aspartate Amino Transf (AST/SGOT) 42U/L (15-37) Alanine Aminotransferase (ALT/SGPT) 10U/L (14-59) Alkaline Phosphatase 89U/L (46-116) Troponin I Quantitative 2.198ng/mL (0.000-0.055) 2.084ng/mL (0.000-0.055) MH-Vlp-N-Type Natriuretic Peptide 85638sq/mL (0-449) Total Protein 5.5g/dL (6.4-8.2) Albumin 2.2g/dL (3.4-5.0) Albumin/Globulin Ratio 0.7 (1.0-1.7) Prothrombin Time 14.9SEC (11.7-14.0) Prothromb Time International Ratio 1.2 (0.8-1.1) Activated Partial Thromboplast Time > 150SEC (24-38) Heparin Anti-Xa Act, Unfractionated 0.28IU/mL (0.30-0.70) Test 12/08/16 09:00 12/08/16 11:35 12/08/16 15:10 Heparin Anti-Xa Act, Unfractionated 0.52IU/mL (0.30-0.70) 0.44IU/mL (0.30-0.70) Troponin I Quantitative 1.331ng/mL (0.000-0.055) White Blood Count 6.1x10^3/uL (4.0-11.0) Red Blood Count 3.28x10^6/uL (3.50-5.40) Hemoglobin 8.7g/dL (12.0-15.5) Hematocrit 27.0% (36.0-47.0) Mean Corpuscular Volume 82fL (79-100) Mean Corpuscular Hemoglobin 27pg (25-35) Mean Corpuscular Hemoglobin Concent 32g/dL (31-37) Red Cell Distribution Width 18.5% (11.5-14.5) Platelet Count 141x10^3/uL (140-400) Neutrophils (%) (Auto) 92% (31-73) Lymphocytes (%) (Auto) 3% (24-48) Monocytes (%) (Auto) 5% (0-9) Eosinophils (%) (Auto) 0% (0-3) Basophils (%) (Auto) 1% (0-3) Neutrophils # (Auto) 5.6x10^3uL (1.8-7.7) Lymphocytes # (Auto) 0.2x10^3/uL (1.0-4.8) Monocytes # (Auto) 0.3x10^3/uL (0.0-1.1) Eosinophils # (Auto) 0.0x10^3/uL (0.0-0.7) Basophils # (Auto) 0.0x10^3/uL (0.0-0.2) Sodium Level 138mmol/L (136-145) Potassium Level 3.3mmol/L (3.5-5.1) Chloride Level 101mmol/L (98-107) Carbon Dioxide Level 27mmol/L (21-32) Anion Gap 10 (6-14) Blood Urea Nitrogen 21mg/dL (7-20) Creatinine 1.0mg/dL (0.6-1.0) Estimated GFR (Cockcroft-Gault) 53.5 Glucose Level 122mg/dL (70-99) Calcium Level 8.4mg/dL (8.5-10.1) Images Images Chest x-ray shows bilateral infiltrates. Assessment/Plan Assessment/Plan 1. Acute respiratory failure. Patient has a history of idiopathic pulmonary fibrosis. Initial screening for influenza is positive. Additionally her chest x- ray shows bilateral infiltrates. She has been started on treatment. Pulmonary is following her. 2. Elevated troponin. 2.19. Nonspecific ST segment changes on EKG. Will rule out for myocardial infarction. Check an echocardiogram. Anticoagulation. 3. Acute on possibly chronic diastolic heart failure. BNP is elevated at 13, 457. We'll continue medical treatment as above. Echocardiogram to evaluate LV function. 4. Hypertension. We'll adjust medications as needed. 5. History of a CVA. Thank you for allowing us to participate in the care of your patient. OPAL ESTRADA MD Dec 08, 2016 18:19
[2016-12-08] MEDS: VANCOMYCIN 1 GM in IV NORMAL SALINE 250ML 250 ML IV SCH (20:11)
[2016-12-08] MEDS ORDERED: NABUMETONE PO SCH (21:00)
[2016-12-08] MEDS: ATORVASTATIN CALCIUM 20 MG TABLET PO SCH (21:15)
[2016-12-09] VITALS (9 sets, daily range): BP systolic 117–144; BP diastolic 62–75
[2016-12-09] MEDS: PIPERACILLIN/TAZOBACTAM 3.375 GM in IV NORMAL SALINE 50ML 50 ML IV SCH ×4 (00:07→21:29)
[2016-12-09] MEDS: TRAMADOL 50 MG TABLET. PO PRN (00:49)
--- NOTE | 2016-12-09 01:04 | HP ---
ADMIT DATE: 12/08/2016 CHIEF COMPLAINT: Chest pain. HISTORY OF PRESENT ILLNESS: The patient is a pleasant 81-year-old female who presented with chest pain, is rated as 7/10. She has associated shortness of breath while in the ER. She is noted to have respiratory failure and possible pneumonia. She has an elevation of her troponin to 2.198. I have discussed the case with ER physician. We are going to admit the patient with consultation to Cardiology and Pulmonary Medicine. PAST MEDICAL HISTORY: GERD, previous stroke, hypertension, right-sided weakness. ALLERGIES: Sulfa. FAMILY HISTORY: Coronary artery disease. SOCIAL HISTORY: She does not drink, smoke or take drugs. MEDICATIONS: Reviewed, please refer to the MRAD. REVIEW OF SYSTEMS: GENERAL: No history of weight change, weakness or fevers. SKIN: No bruising, hair changes or rashes. EYES: No blurred, double or loss of vision. NOSE AND THROAT: No history of nosebleeds, hoarseness or sore throat. CARDIAC: She complains of chest pain. PULMONARY: Complains of shortness of breath. GASTROINTESTINAL: Denies changes in appetite, nausea, vomiting, diarrhea or constipation. GENITOURINARY: No history of frequency, urgency, hesitancy or nocturia. NEUROLOGIC: Denies history of numbness, tingling, tremor or weakness. PSYCHIATRIC: No history of panic, anxiety or depression. ENDOCRINE: No history of heat or cold intolerance, polyuria or polydipsia. EXTREMITIES: Denies muscle weakness, joint pain, pain on walking or stiffness. PHYSICAL EXAMINATION: VITAL SIGNS: Temperature afebrile, pulse 62, respirations 18, blood pressure 144/90. GENERAL: She is alert, cooperative, weak. HEART: Normal S1, S2. LUNGS: Clear. ABDOMEN: Soft, positive bowel sounds. EXTREMITIES: Trace edema. SKIN: No rashes. PSYCHIATRIC: She is stable. VASCULAR: Good capillary refill. ENDOCRINE: No thyromegaly. LYMPHATICS: No cervical nodes. HEMATOPOIETIC: No bruising. LABORATORY DATA: White count 5, hemoglobin 9, platelets 148. Electrolytes: Sodium 138, potassium 3.3, chloride 101, bicarbonate 27, BUN 21, creatinine 1, glucose 122. Troponin is 2.198. BNP 13,457. Chest x-ray shows vascular congestion. ASSESSMENT AND PLAN: Probable acute myocardial infarction with respiratory failure, influenza and pulmonary fibrosis. The patient has been admitted, will consult Dr. Carrizales, consult Dr. Alcantar. Serial enzymes, serial EKGs, cardiac monitoring in the ICU, try resume her home medications. Prognosis guarded. AYAKA DAILEY DO DR: ANITA/chad JOB#: [id number] / [id number]
[2016-12-09] MEDS: HEPARIN 25,000UTS/500ML PREMIX 500 ML IV PRN (01:28)
[2016-12-09 05:40] LABS: BASO % 0 % (0-3); EOS % 0 % (0-3); HEMATOCRIT 23.7 % (36.0-47.0); HEMOGLOBIN 7.7 g/dL (12.0-15.5); LYMPH # 0.1 x10^3/uL (1.0-4.8); LYMPH % 3 % (24-48); MEAN CORPUSCULAR HEMOGLOBIN 27 pg (25-35); MEAN CORPUSCULAR HGB CONC 33 g/dL (31-37); MEAN CORPUSCULAR VOLUME 81 fL (79-100); MONO % 7 % (0-9); NEUT % 90 % (31-73); PLATELET COUNT 132 x10^3/uL (140-400); RED BLOOD COUNT 2.92 x10^6/uL (3.50-5.40); RED CELL DISTRIBUTION WIDTH 18.9 % (11.5-14.5); WHITE BLOOD COUNT 2.3 x10^3/uL (4.0-11.0)
[2016-12-09 05:46] LABS: GFR 53.5
[2016-12-09] MEDS: IPRATRPIUM/ALBUTEROL 0.5/2.5MG 3 ML NEBU. NEB SCH ×2 (08:36→11:43)
[2016-12-09] MEDS: methylPREDNISolone SOD SUCC PF 125 MG/2 ML VIAL. IV SCH (09:00)
[2016-12-09] MEDS ORDERED: PREDNISONE 10 MG TABLET PO SCH (09:00)
[2016-12-09] MEDS ORDERED: MELOXICAM 7.5 MG TABLET PO SCH (09:00)
[2016-12-09] MEDS: SENNOSIDES 8.6 MG TABLET PO SCH (09:30)
[2016-12-09] MEDS: LEFLUNOMIDE 10 MG TABLET. PO SCH (09:30)
[2016-12-09] MEDS: OSELTAMIVIR 75 MG CAPSULE PO SCH ×2 (09:31→21:25)
[2016-12-09] MEDS: HYDROXYCHLOROQUINE 200 MG TABLET PO SCH ×2 (09:32→21:25)
[2016-12-09] MEDS: CLOPIDOGREL BISULFATE 75 MG TABLET PO SCH (09:32)
[2016-12-09] MEDS: LISINOPRIL 10 MG TABLET PO SCH (09:32)
[2016-12-09] MEDS: FOLIC ACID 1 MG TABLET PO SCH (09:32)
[2016-12-09] MEDS: LOSARTAN POTASSIUM 50 MG TABLET. PO SCH (09:32)
[2016-12-09] MEDS: FUROSEMIDE 20 MG TABLET PO SCH (09:33)
[2016-12-09] MEDS: PANTOPRAZOLE 40 MG TABLET. PO SCH (09:33)
[2016-12-09] MEDS: LEVOFLOXACIN 250 MG TABLET. PO SCH (09:34)
--- NOTE | 2016-12-09 09:35 | HP ---
ADMIT DATE: 12/08/2016 CHIEF COMPLAINT: Shortness of breath, weakness. HISTORY OF PRESENT ILLNESS: The patient is a 81-year-old woman with past medical history of IPF who relates that she has been feeling more weak with increasing congestion. On further questioning, she admits that she woke up yesterday with some chest pain that was in the middle of her chest, dull, achy, not associated with any other symptoms, spontaneously resolving within about 5 minutes. She did not have any further symptoms yesterday, but today had a similar chest pain again this afternoon. She relates that she has had a chronic dry cough, which in the past few days actually has turned rather productive. Has not noticed any discoloration of her sputum. Denies any fevers or chills, but has general malaise and increased shortness of breath over her baseline respiratory difficulties. In the Emergency Room, she was found positive for influenza A, troponin and BNP were elevated. She therefore will be admitted to the ICU on heparin protocol for cardiac workup as well as respiratory distress. PAST MEDICAL HISTORY: IPF as above, osteoarthritis, hypertension, history of multiple strokes without discernible residual deficits. FAMILY HISTORY: No other family with lung disease. Positive for CVA and heart disease. SOCIAL HISTORY: Lives by herself. No toxic habits. ALLERGIES: SULFA. MEDICATIONS: MAR reconciled with home medications. REVIEW OF SYSTEMS: Positive as per HPI. General malaise, achiness. Denies any abdominal symptoms or dysuria. Rest of organ system review was negative. PHYSICAL EXAMINATION: VITAL SIGNS: From today show a blood pressure of 157/75, heart rate of 87, respiratory rate at 26. She is afebrile. GENERAL: This is a 81-year-old woman, alert and oriented, in no acute distress. HEENT: Shows no scleral icterus. Oral mucosa is pink and moist. NECK: Supple. LUNGS: Have significant rales throughout. CARDIOVASCULAR: Regular rate and rhythm. ABDOMEN: Has positive bowel sounds, soft, nontender. EXTREMITIES: Show no edema. SKIN: Warm, soft and dry. LABORATORY DATA: CBC from today shows a WBC of 5.2, hemoglobin 9.0, platelets of 148, segs at 77%, bands at 17. Chemistries with a BUN and creatinine of 22 and 0.9. Electrolytes within normal limits. Calcium at 8.3, glucose at 174. LFTs are essentially within normal. BNP of 13,457 and an initial troponin of 2.198. Total protein at 5.5, albumin 2.2. Serology positive for flu A. IMAGING: Chest x-ray obtained in the Emergency Room and reviewed by myself shows fluffy infiltrates bilaterally with vascular congestion. ASSESSMENT AND PLAN: The patient is a 81-year-old woman with IPF, admitted with influenza A, as well as elevated troponin and evidence of CHF. We will continue cycling enzymes, as she may very well have had her event yesterday morning. Dr. Looney from Cardiology has been consulted. Follow with EKGs as well. Echo will be obtained in the morning. We will start on beta blockers tonight. Aspirin and Plavix are already on board. Further workup will be determined by Dr. Looney. For her influenza A, she will be started on Tamiflu. We will continue to support with oxygen and nebulizers. The patient has underlying IPF with actually a very good pulse ox currently, especially considering comorbidities acutely. Monitor supplemental oxygen as needed. She has arthritis (question rheumatoid). She is Plaquenil as well as Relafen for this. We will hold medications for the time being. Because of history of ____, she actually is on ____. We will continue. Also takes omeprazole for GERD. CC: ____ MICHELLE PARKS MD DR: JENNIFER/nts JOB#: [id number] / [id number] LATOYA
--- NOTE | 2016-12-09 11:40 | PDOC ---
PROGRESS NOTES Chief Complaint Chief Complaint cc: sob A/P Respiratory failure - influenza, IPF and possible pneumonia Elevated troponin Anemia Possible acute on Chronic heart failure HTN HLP Mild hyperglycemia due to steroids. Plan On heparin gtt, ACS protocol , cardiology following, supplemental oxygen to keep saturations Periodic nebulizations prednisone continue Levaquin Vancomycin - renal dosing, per pharmacy. cardiology and Pulmonology following 1 unit of prbc with iv lasix labs reviewed, d/w daughter at beside, all questions answered. History of Present Illness History of Present Illness sob better no chest pain no fevers no chills. Vitals Vitals Vital Signs Date Time Temp Pulse Resp B/P Pulse Ox O2 Delivery O2 Flow Rate FiO2 12/09/16 10:33 97.5 77 20 124/64 94 Room Air 97.5 12/09/16 08:46 2.0 Physical Exam General: Alert, Oriented X3, mild distress Heart: Regular rate, Other Lungs: Clear Abdomen: Normal bowel sounds, Soft Extremities: No clubbing, No cyanosis Labs LABS Laboratory Tests Test 12/08/16 15:10 12/09/16 05:00 12/09/16 05:03 Heparin Anti-Xa Act, Unfractionated 0.44IU/mL (0.30-0.70) 0.44IU/mL (0.30-0.70) White Blood Count 2.3x10^3/uL (4.0-11.0) Red Blood Count 2.92x10^6/uL (3.50-5.40) Hemoglobin 7.7g/dL (12.0-15.5) Hematocrit 23.7% (36.0-47.0) Mean Corpuscular Volume 81fL (79-100) Mean Corpuscular Hemoglobin 27pg (25-35) Mean Corpuscular Hemoglobin Concent 33g/dL (31-37) Red Cell Distribution Width 18.9% (11.5-14.5) Platelet Count 132x10^3/uL (140-400) Neutrophils (%) (Auto) 90% (31-73) Lymphocytes (%) (Auto) 3% (24-48) Monocytes (%) (Auto) 7% (0-9) Eosinophils (%) (Auto) 0% (0-3) Basophils (%) (Auto) 0% (0-3) Neutrophils # (Auto) 2.1x10^3uL (1.8-7.7) Lymphocytes # (Auto) 0.1x10^3/uL (1.0-4.8) Monocytes # (Auto) 0.1x10^3/uL (0.0-1.1) Eosinophils # (Auto) 0.0x10^3/uL (0.0-0.7) Basophils # (Auto) 0.0x10^3/uL (0.0-0.2) Sodium Level 137mmol/L (136-145) Potassium Level 4.0mmol/L (3.5-5.1) Chloride Level 104mmol/L (98-107) Carbon Dioxide Level 26mmol/L (21-32) Anion Gap 7 (6-14) Blood Urea Nitrogen 22mg/dL (7-20) Creatinine 1.0mg/dL (0.6-1.0) Estimated GFR (Cockcroft-Gault) 53.5 Glucose Level 274mg/dL (70-99) Calcium Level 8.0mg/dL (8.5-10.1) Assessment and Plan Assessmemt and Plan Problems Medical Problems: (1) Elevated troponin Status: Acute (2) Idiopathic pulmonary fibrosis Status: Acute (3) Influenza Status: Acute (4) Non-STEMI (non-ST elevated myocardial infarction) Status: Acute Problems: Comment Review of Relevant I have reviewed the following items cony (where applicable) has been applied. Labs Laboratory Tests Test 12/07/16 18:15 12/07/16 18:18 12/07/16 21:52 12/08/16 02:30 Influenza Type A Antigen Positive (NEGATIVE) Influenza Type B Antigen Negative (NEGATIVE) White Blood Count 5.2x10^3/uL (4.0-11.0) Red Blood Count 3.39x10^6/uL (3.50-5.40) Hemoglobin 9.0g/dL (12.0-15.5) Hematocrit 27.9% (36.0-47.0) Mean Corpuscular Volume 82fL (79-100) Mean Corpuscular Hemoglobin 27pg (25-35) Mean Corpuscular Hemoglobin Concent 32g/dL (31-37) Red Cell Distribution Width 19.1% (11.5-14.5) Platelet Count 148x10^3/uL (140-400) Neutrophils (%) (Auto) 94% (31-73) Lymphocytes (%) (Auto) 1% (24-48) Monocytes (%) (Auto) 4% (0-9) Eosinophils (%) (Auto) 0% (0-3) Basophils (%) (Auto) 0% (0-3) Neutrophils # (Auto) 4.9x10^3uL (1.8-7.7) Lymphocytes # (Auto) 0.1x10^3/uL (1.0-4.8) Monocytes # (Auto) 0.2x10^3/uL (0.0-1.1) Eosinophils # (Auto) 0.0x10^3/uL (0.0-0.7) Basophils # (Auto) 0.0x10^3/uL (0.0-0.2) Segmented Neutrophils % 77% (35-66) Band Neutrophils % 17% (0-9) Monocytes % 6% (0-10) Toxic Granulation Present Platelet Estimate Adequate (ADEQUATE) Poikilocytosis Mod Anisocytosis Slight Ovalocytes Few Schistocytes Few RBC Morphology Bizarre Forms Few Sodium Level 138mmol/L (136-145) Potassium Level 4.3mmol/L (3.5-5.1) Chloride Level 101mmol/L (98-107) Carbon Dioxide Level 25mmol/L (21-32) Anion Gap 12 (6-14) Blood Urea Nitrogen 22mg/dL (7-20) Creatinine 0.9mg/dL (0.6-1.0) Estimated GFR (Cockcroft-Gault) 60.4 BUN/Creatinine Ratio 24 (6-20) Glucose Level 174mg/dL (70-99) Calcium Level 8.3mg/dL (8.5-10.1) Total Bilirubin 0.7mg/dL (0.2-1.0) Aspartate Amino Transf (AST/SGOT) 42U/L (15-37) Alanine Aminotransferase (ALT/SGPT) 10U/L (14-59) Alkaline Phosphatase 89U/L (46-116) Troponin I Quantitative 2.198ng/mL (0.000-0.055) 2.084ng/mL (0.000-0.055) HI-Cgy-C-Type Natriuretic Peptide 36806gj/mL (0-449) Total Protein 5.5g/dL (6.4-8.2) Albumin 2.2g/dL (3.4-5.0) Albumin/Globulin Ratio 0.7 (1.0-1.7) Prothrombin Time 14.9SEC (11.7-14.0) Prothromb Time International Ratio 1.2 (0.8-1.1) Activated Partial Thromboplast Time > 150SEC (24-38) Heparin Anti-Xa Act, Unfractionated 0.28IU/mL (0.30-0.70) Test 12/08/16 03:05 12/08/16 09:00 12/08/16 11:35 12/08/16 15:10 Nasal Screen MRSA (PCR) Negative (Negative) Heparin Anti-Xa Act, Unfractionated 0.52IU/mL (0.30-0.70) 0.44IU/mL (0.30-0.70) Troponin I Quantitative 1.331ng/mL (0.000-0.055) White Blood Count 6.1x10^3/uL (4.0-11.0) Red Blood Count 3.28x10^6/uL (3.50-5.40) Hemoglobin 8.7g/dL (12.0-15.5) Hematocrit 27.0% (36.0-47.0) Mean Corpuscular Volume 82fL (79-100) Mean Corpuscular Hemoglobin 27pg (25-35) Mean Corpuscular Hemoglobin Concent 32g/dL (31-37) Red Cell Distribution Width 18.5% (11.5-14.5) Platelet Count 141x10^3/uL (140-400) Neutrophils (%) (Auto) 92% (31-73) Lymphocytes (%) (Auto) 3% (24-48) Monocytes (%) (Auto) 5% (0-9) Eosinophils (%) (Auto) 0% (0-3) Basophils (%) (Auto) 1% (0-3) Neutrophils # (Auto) 5.6x10^3uL (1.8-7.7) Lymphocytes # (Auto) 0.2x10^3/uL (1.0-4.8) Monocytes # (Auto) 0.3x10^3/uL (0.0-1.1) Eosinophils # (Auto) 0.0x10^3/uL (0.0-0.7) Basophils # (Auto) 0.0x10^3/uL (0.0-0.2) Sodium Level 138mmol/L (136-145) Potassium Level 3.3mmol/L (3.5-5.1) Chloride Level 101mmol/L (98-107) Carbon Dioxide Level 27mmol/L (21-32) Anion Gap 10 (6-14) Blood Urea Nitrogen 21mg/dL (7-20) Creatinine 1.0mg/dL (0.6-1.0) Estimated GFR (Cockcroft-Gault) 53.5 Glucose Level 122mg/dL (70-99) Calcium Level 8.4mg/dL (8.5-10.1) Test 12/09/16 05:00 12/09/16 05:03 Heparin Anti-Xa Act, Unfractionated 0.44IU/mL (0.30-0.70) White Blood Count 2.3x10^3/uL (4.0-11.0) Red Blood Count 2.92x10^6/uL (3.50-5.40) Hemoglobin 7.7g/dL (12.0-15.5) Hematocrit 23.7% (36.0-47.0) Mean Corpuscular Volume 81fL (79-100) Mean Corpuscular Hemoglobin 27pg (25-35) Mean Corpuscular Hemoglobin Concent 33g/dL (31-37) Red Cell Distribution Width 18.9% (11.5-14.5) Platelet Count 132x10^3/uL (140-400) Neutrophils (%) (Auto) 90% (31-73) Lymphocytes (%) (Auto) 3% (24-48) Monocytes (%) (Auto) 7% (0-9) Eosinophils (%) (Auto) 0% (0-3) Basophils (%) (Auto) 0% (0-3) Neutrophils # (Auto) 2.1x10^3uL (1.8-7.7) Lymphocytes # (Auto) 0.1x10^3/uL (1.0-4.8) Monocytes # (Auto) 0.1x10^3/uL (0.0-1.1) Eosinophils # (Auto) 0.0x10^3/uL (0.0-0.7) Basophils # (Auto) 0.0x10^3/uL (0.0-0.2) Sodium Level 137mmol/L (136-145) Potassium Level 4.0mmol/L (3.5-5.1) Chloride Level 104mmol/L (98-107) Carbon Dioxide Level 26mmol/L (21-32) Anion Gap 7 (6-14) Blood Urea Nitrogen 22mg/dL (7-20) Creatinine 1.0mg/dL (0.6-1.0) Estimated GFR (Cockcroft-Gault) 53.5 Glucose Level 274mg/dL (70-99) Calcium Level 8.0mg/dL (8.5-10.1) Laboratory Tests Test 12/08/16 15:10 12/09/16 05:00 12/09/16 05:03 Heparin Anti-Xa Act, Unfractionated 0.44IU/mL (0.30-0.70) 0.44IU/mL (0.30-0.70) White Blood Count 2.3x10^3/uL (4.0-11.0) Red Blood Count 2.92x10^6/uL (3.50-5.40) Hemoglobin 7.7g/dL (12.0-15.5) Hematocrit 23.7% (36.0-47.0) Mean Corpuscular Volume 81fL (79-100) Mean Corpuscular Hemoglobin 27pg (25-35) Mean Corpuscular Hemoglobin Concent 33g/dL (31-37) Red Cell Distribution Width 18.9% (11.5-14.5) Platelet Count 132x10^3/uL (140-400) Neutrophils (%) (Auto) 90% (31-73) Lymphocytes (%) (Auto) 3% (24-48) Monocytes (%) (Auto) 7% (0-9) Eosinophils (%) (Auto) 0% (0-3) Basophils (%) (Auto) 0% (0-3) Neutrophils # (Auto) 2.1x10^3uL (1.8-7.7) Lymphocytes # (Auto) 0.1x10^3/uL (1.0-4.8) Monocytes # (Auto) 0.1x10^3/uL (0.0-1.1) Eosinophils # (Auto) 0.0x10^3/uL (0.0-0.7) Basophils # (Auto) 0.0x10^3/uL (0.0-0.2) Sodium Level 137mmol/L (136-145) Potassium Level 4.0mmol/L (3.5-5.1) Chloride Level 104mmol/L (98-107) Carbon Dioxide Level 26mmol/L (21-32) Anion Gap 7 (6-14) Blood Urea Nitrogen 22mg/dL (7-20) Creatinine 1.0mg/dL (0.6-1.0) Estimated GFR (Cockcroft-Gault) 53.5 Glucose Level 274mg/dL (70-99) Calcium Level 8.0mg/dL (8.5-10.1) Microbiology 12/07/16 Blood Culture - Preliminary, Resulted NO GROWTH AFTER 1 DAY Medications Current Medications Albuterol/ Ipratropium 3 ml 3 ml 1X ONCE NEB Last administered on 12/07/16 18: 26; Start 12/07/16 at 18:30; Stop 12/07/16 at 18:31; Status DC Piperacillin Sod/ Tazobactam Sod/ Sodium Chloride (Zosyn/Iv Sodium Chloride 0.9 % 100ml) 100 ml @ 200 mls/hr Q6HRS IV ; Start 12/08/16 at 00:00; Status UNV Vancomycin HCl (Vanco Per Pharmacy) 1 each PRN DAILY PRN MC SEE COMMENTS Last administered on 12/08/16 09:23; Start 12/07/16 at 20:00 Heparin Sodium (Porcine) 3600 unit 3,600 unit 1X ONCE IV Last administered on 12/07/16 20:17; Start 12/07/16 at 20:30; Stop 12/07/16 at 20:31; Status DC Heparin Sodium/ Dextrose 500 ml @ 0 mls/hr CONT PRN IV SEE I/O RECORD Last administered on 12/09/16 01:28; Start 12/07/16 at 20:00 Heparin Sodium (Porcine) 1500 unit 1,500 unit PRN Q6HRS PRN IV FOR UFH LEVEL LESS THAN 0.2; Start 12/07/16 at 20:00 Vancomycin HCl/ Sodium Chloride (Iv Sodium Chloride 0.9% 500ml Bag) 500 ml @ 250 mls/hr 1X ONCE IV Last administered on 12/07/16 20:30; Start 12/07/16 at 20 :30; Stop 12/07/16 at 22:29; Status DC Furosemide 20 mg 20 mg 1X ONCE IVP Last administered on 12/07/16 22:03; Start 12/07/16 at 20:45; Stop 12/07/16 at 20:46; Status DC Piperacillin Sod/ Tazobactam Sod 3.375 gm/Sodium Chloride 50 ml @ 100 mls/hr Q6HRS IV Last administered on 12/09/16 06:27; Start 12/07/16 at 23:00 Vancomycin HCl/ Sodium Chloride (Iv Sodium Chloride 0.9% 250ml) 250 ml @ 250 mls/hr Q24H IV Last administered on 12/08/16 20:11; Start 12/08/16 at 20:00 Vancomycin HCl 1 each 1X ONCE MC ; Start 12/09/16 at 19:30; Stop 12/09/16 at 19: 31 Ondansetron HCl (Zofran) 4 mg PRN Q8HRS PRN IV NAUSEA/VOMITING Last administered on 12/08/16 02:44; Start 12/07/16 at 22:15; Stop 12/08/16 at 22:14; Status DC Acetaminophen (Tylenol) 650 mg PRN Q4HRS PRN PO FEVER; Start 12/07/16 at 22:15; Stop 12/08/16 at 22:14; Status DC Nitroglycerin (Nitrostat) 0.4 mg PRN Q5MIN PRN SL CHEST PAIN; Start 12/07/16 at 22:15; Stop 12/08/16 at 22:14; Status DC Albuterol/ Ipratropium (Duoneb) 3 ml RTQID NEB Last administered on 12/09/16 08 :36; Start 12/08/16 at 08:00; Stop 12/09/16 at 07:59; Status DC Methylprednisolone Sodium Succinate (Solu-Medrol 40mg Vial) 40 mg Q8HRS IV ; Start 12/08/16 at 06:00; Stop 12/08/16 at 06:00; Status DC Oseltamivir Phosphate (Tamiflu) 75 mg BID PO Last administered on 12/09/16 09: 31; Start 12/08/16 at 09:00; Stop 12/12/16 at 23:59 Oseltamivir Phosphate (Tamiflu) 75 mg 1X ONCE PO Last administered on 00:33; Start 12/07/16 at 23:30; Stop 12/07/16 at 23:31; Status DC Atorvastatin Calcium (Lipitor) 20 mg QHS PO Last administered on 12/08/16 21:15 ; Start 12/08/16 at 21:00 Clopidogrel Bisulfate (Plavix) 75 mg DAILY PO Last administered on 12/09/16 09: 32; Start 12/08/16 at 09:00 Hydroxychloroquine Sulfate (Plaquenil) 200 mg BID PO Last administered on 09:32; Start 12/08/16 at 09:00 Ibuprofen (Motrin) 200 mg PRN Q6HRS PRN PO INFLAMMATION; Start 12/08/16 at 06:00 Lisinopril (Prinivil) 10 mg DAILY PO Last administered on 12/09/16 09:32; Start 12/08/16 at 09:00 Loperamide HCl (Imodium) 2 mg PRN Q4HRS PRN PO DIARRHEA; Start 12/08/16 at 00:15 Losartan Potassium (Cozaar) 50 mg DAILY PO Last administered on 12/09/16 09:32 ; Start 12/08/16 at 09:00 Promethazine HCl (Phenergan) 12.5 mg PRN Q6HRS PRN PO NAUSEA/VOMITING; Start at 00:15 Pantoprazole Sodium (Protonix) 40 mg DAILYAC PO Last administered on 12/09/16 09:33; Start 12/08/16 at 07:30 Furosemide (Lasix) 20 mg DAILY PO Last administered on 12/09/16 09:33; Start at 09:00 Info (Anti-Coagulation Monitoring By Pharmacy) 1 each PRN DAILY PRN MC SEE COMMENTS Last administered on 12/08/16 09:30; Start 12/08/16 at 09:30 Potassium Chloride (Klor-Con) 40 meq 1X ONCE PO Last administered on 12/08/16 13:15; Start 12/08/16 at 12:30; Stop 12/08/16 at 12:31; Status DC Methylprednisolone Sodium Succinate (Solu-Medrol 125mg Vial) 125 mg DAILY IV Last administered on 12/09/16 09:00; Start 12/08/16 at 13:30 Folic Acid (Folic Acid) 1 mg DAILY PO Last administered on 12/09/16 09:32; Start 12/09/16 at 09:00 Leflunomide (Arava) 10 mg DAILY PO Last administered on 12/09/16 09:30; Start 12/09/16 at 09:00 Levofloxacin (Levaquin) 250 mg DAILY PO Last administered on 12/09/16 09:34; Start 12/09/16 at 09:00 Prednisone (Prednisone) 10 mg DAILY PO Last administered on 12/09/16 09:34; Start 12/09/16 at 09:00 Sennosides (Senna) 8.6 mg DAILY PO Last administered on 12/09/16 09:30; Start 12/09/16 at 09:00 Tramadol HCl (Ultram) 50 mg PRN Q6HRS PO ; Start 12/08/16 at 15:00; Stop at 00:47; Status DC Albuterol Sulfate (Ventolin Neb Soln) 2.5 mg PRN Q6HRS PRN NEB SHORTNESS OF BREATH; Start 12/08/16 at 15:00 Meloxicam (Mobic) 15 mg DAILY PO Last administered on 12/09/16 09:33; Start 12/09/16 at 09:00 Non-Formulary Medication 1 tab BID PO ; Start 12/08/16 at 21:00; Stop 12/08/16 at 21:00; Status DC Tramadol HCl (Ultram) 50 mg PRN Q6HRS PRN PO MODERATE PAIN Last administered on 12/09/16 00:49; Start 12/09/16 at 00:47 Active Scripts Active Levaquin (Levofloxacin) 250 Mg Tablet 250 Mg PO DAILY Reported Senna Laxative (Sennosides) 8.6 Mg Tablet 8.6 Mg PO Tramadol Hcl 50 Mg Tablet 1 Tab PO PRN Q6HRS Proair Hfa Inhaler (Albuterol Sulfate) 8.5 Gm Hfa.aer.ad 1 Puff INH PRN Q6HRS PRN Meloxicam 15 Mg Tablet 1 Tab PO DAILY Prednisone 10 Mg Tablet 10 Mg PO DAILY Leflunomide 10 Mg Tablet 10 Mg PO Folic Acid 1 Mg Tablet 1 Tab PO DAILY Loperamide (Loperamide Hcl) 2 Mg Capsule 2 Mg PO PRN Q4HRS PRN Promethazine Hcl 12.5 Mg Tablet 12.5 Mg PO Q6H PRN Atorvastatin Calcium 20 Mg Tablet 20 Mg PO DAILY Clopidogrel (Clopidogrel Bisulfate) 75 Mg Tablet 75 Mg PO DAILY Losartan Potassium 50 Mg Tablet 50 Mg PO DAILY Ibuprofen 200 Mg Tablet 200 Mg PO Q6HRS PRN Nabumetone 500 Mg Tablet 1 Tab PO BID Lisinopril 10 Mg Tablet 10 Mg PO DAILY Omeprazole 40 Mg Capsule.dr 40 Mg PO DAILY Hydroxychloroquine Sulfate 200 Mg Tablet 1 Tab PO BID Vitals/I & O Vital Sign - Last 24 Hours 12/08/16 12/08/16 12/08/16 12/08/16 12:00 12:00 12:02 13:00 Temp 98.6 98.6 Pulse 90 87 Resp 19 21 B/P 101/80 105/45 Pulse Ox 100 99 97 O2 Delivery Nasal Cannula Room Air Nasal Cannula Nasal Cannula O2 Flow Rate 2.0 2.0 2.0 12/08/16 12/08/16 12/08/16 12/08/16 14:00 15:00 16:00 16:14 Pulse 79 74 Resp 18 20 B/P 97/51 110/56 Pulse Ox 97 99 99 O2 Delivery Nasal Cannula Nasal Cannula Room Air Nasal Cannula O2 Flow Rate 2.0 2.0 2.0 12/08/16 12/08/16 12/08/16 12/08/16 16:16 17:00 18:00 19:00 Temp 98.4 98.4 Pulse 76 92 87 74 Resp 21 28 28 22 B/P 116/56 123/58 110/50 113/62 Pulse Ox 98 98 98 99 O2 Delivery Nasal Cannula Nasal Cannula Nasal Cannula Nasal Cannula O2 Flow Rate 2.0 2.0 2.0 2.0 12/08/16 12/08/16 12/08/16 12/08/16 19:34 20:00 20:00 21:00 Temp 98.1 98.1 Pulse 78 71 Resp 24 20 B/P 105/58 113/56 Pulse Ox 99 98 98 O2 Delivery Nasal Cannula Nasal Cannula Nasal Cannula Nasal Cannula O2 Flow Rate 2.0 2.0 2.0 2.0 12/08/16 12/08/16 12/08/16 12/09/16 22:00 22:57 23:00 00:49 Temp 98.1 98.1 Pulse 71 74 Resp 19 22 B/P 121/64 131/66 Pulse Ox 98 98 98 O2 Delivery Nasal Cannula Nasal Cannula Nasal Cannula Nasal Cannula O2 Flow Rate 2.0 1.5 2.0 2.0 12/09/16 12/09/16 12/09/16 12/09/16 01:49 03:55 07:00 08:46 Temp 97.9 97.9 97.9 97.9 Pulse 94 70 Resp 18 18 B/P 136/74 121/71 Pulse Ox 98 94 96 O2 Delivery Nasal Cannula Nasal Cannula Nasal Cannula Nasal Cannula O2 Flow Rate 2.0 2.0 1.5 2.0 12/09/16 12/09/16 12/09/16 09:32 09:32 10:33 Temp 97.5 97.5 Pulse 70 70 77 Resp 20 B/P 121/71 121/71 124/64 Pulse Ox 94 O2 Delivery Room Air Intake and Output 12/08/16 12/08/16 12/09/16 15:00 23:00 07:00 Intake Total 680 ml 557 ml 100 ml Output Total 1 ml Balance 679 ml 557 ml 100 ml KEYONA OCONNOR MD Dec 09, 2016 11:40
[2016-12-09] MEDS ORDERED: FUROSEMIDE 20 MG/2 ML VIAL IV PRN (12:30)
--- NOTE | 2016-12-09 13:45 | CONS ---
DATE OF CONSULTATION: 12/08/2016 ATTENDING PHYSICIAN: Stefany Rodriguez MD REASON FOR CONSULTATION: The patient seen in pulmonary consultation at the request of Dr. Rodriguez for increasing shortness of air, abnormal chest x-ray. HISTORY OF PRESENT ILLNESS: The patient is a 81-year-old female who normally follows Dr. Canas in the office for recent diagnosis of pulmonary fibrosis. She is currently on doxycycline and oral steroids. She presented with weakness, increasing shortness of breath, was evaluated and found to have positive serology screen for influenza. She has a cough, mostly nonproductive. No documented fever, no significant body aches. She normally does not wear oxygen at home. She is requiring oxygen in the intensive care unit. Her white count was normal. I reviewed the chest x-ray, which reveals bilateral infiltrates compatible with her underlying diagnosis of pulmonary fibrosis. There was no recent x-ray for comparison. PAST MEDICAL HISTORY: 1. Recent diagnosis of pulmonary fibrosis, normally at home on oral steroids, does not require oxygen at this time. 2. CVA. 3. Gastroesophageal reflux. 4. Hypertension. PAST SURGICAL HISTORY: No recent major surgeries. REVIEW OF SYSTEMS: As indicated above, otherwise a 10-point system was reviewed and negative. CURRENT MEDICATION: List was reviewed. Please see the MRAD. ALLERGIES: Sulfa. 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 She smoked for a short period of time, quit approximately 30 years ago. PHYSICAL EXAMINATION: GENERAL: She was sitting up in a chair. She appeared to be very weak, otherwise requiring 2 liters of oxygen supplementation. HEENT: Eyes, the sclerae were nonicteric. NECK: Jugular venous distention was not elevated. No lymphadenopathy. CHEST: Full expansion. LUNGS: Usual Velcro type rales, more prominent on the right than the left. No wheezing. CARDIOVASCULAR: Regular rate and rhythm with S1, S2, no S3. ABDOMEN: Soft, nontender, nondistended. EXTREMITIES: No clubbing, cyanosis or edema. NEUROLOGIC: The patient was sitting up in chair, she was awake, alert, following commands. A detailed neuro exam was not performed. LABORATORY DATA: Reviewed. White count was normal. Hemoglobin and hematocrit were chronically low. INR was 1.2. Electrolytes were noted. Troponin level was elevated. AST and ALT were noted. Albumin was low. IMPRESSION: 1. Acute respiratory failure secondary to influenza and possible cardiac component. 2. Elevated troponin level, Cardiology has been consulted, workup in progress. 3. Pulmonary fibrosis with acute exacerbation. 4. Hypertension. 5. Possible pneumonia, difficult to rule out pneumonia. There is no recent chest x-ray for comparison. PLAN: 1. We will continue oxygen supplementation. 2. Continue empiric antibiotics. 3. Cardiology consulted. Follow their recommendations. 4. Continue Solu-Medrol. 5. Nebulized treatments. 6. DVT and GI prophylaxis. I do appreciate the privilege in sharing in the patient's care. LISA GARCIA MD DR: GEORGE/chad JOB#: [id number] / [id number]
--- NOTE | 2016-12-09 14:15 | PDOC ---
CARDIO Progress Notes Date and Time Date of Service 12/09/2016 Time of Evaluation 1415 Subjective Subjective: No Chest Pain, No Palpitations, No Dizziness Vitals Vitals Vital Signs Date Time Temp Pulse Resp B/P Pulse Ox O2 Delivery O2 Flow Rate FiO2 12/09/16 11:43 Nasal Cannula 2.0 12/09/16 10:33 97.5 77 20 124/64 94 97.5 Weight Weight [ ] Input and Output Intake and Output Intake and Output 12/09/16 07:00 Intake Total 1337 ml Output Total 1 ml Balance 1336 ml Intake Oral 1130 ml IV Total 207 ml Output Urine Total 1 ml # Voids 1 Laboratory Labs Laboratory Tests Test 12/08/16 15:10 12/09/16 05:00 12/09/16 05:03 Heparin Anti-Xa Act, Unfractionated 0.44IU/mL (0.30-0.70) 0.44IU/mL (0.30-0.70) White Blood Count 2.3x10^3/uL (4.0-11.0) Red Blood Count 2.92x10^6/uL (3.50-5.40) Hemoglobin 7.7g/dL (12.0-15.5) Hematocrit 23.7% (36.0-47.0) Mean Corpuscular Volume 81fL (79-100) Mean Corpuscular Hemoglobin 27pg (25-35) Mean Corpuscular Hemoglobin Concent 33g/dL (31-37) Red Cell Distribution Width 18.9% (11.5-14.5) Platelet Count 132x10^3/uL (140-400) Neutrophils (%) (Auto) 90% (31-73) Lymphocytes (%) (Auto) 3% (24-48) Monocytes (%) (Auto) 7% (0-9) Eosinophils (%) (Auto) 0% (0-3) Basophils (%) (Auto) 0% (0-3) Neutrophils # (Auto) 2.1x10^3uL (1.8-7.7) Lymphocytes # (Auto) 0.1x10^3/uL (1.0-4.8) Monocytes # (Auto) 0.1x10^3/uL (0.0-1.1) Eosinophils # (Auto) 0.0x10^3/uL (0.0-0.7) Basophils # (Auto) 0.0x10^3/uL (0.0-0.2) Sodium Level 137mmol/L (136-145) Potassium Level 4.0mmol/L (3.5-5.1) Chloride Level 104mmol/L (98-107) Carbon Dioxide Level 26mmol/L (21-32) Anion Gap 7 (6-14) Blood Urea Nitrogen 22mg/dL (7-20) Creatinine 1.0mg/dL (0.6-1.0) Estimated GFR (Cockcroft-Gault) 53.5 Glucose Level 274mg/dL (70-99) Calcium Level 8.0mg/dL (8.5-10.1) Microbiology Micro Microbiology 12/07/16 Blood Culture - Preliminary, Resulted NO GROWTH AFTER 1 DAY Physical Exam HEENT: Neck Supple W Full Motion Chest: Symmetric LUNGS: Other (diminished anteriorly) Heart: S1S2, RRR Extremities: No Edema Neurology: alert, oriented, follow commands Assessment Assessment 1. Acute respiratory failure with ? chronic known history of pulm fibrosis influenza positive tx per PULM - ? IV and oral steroids 2. NSTEMI, likely demand mediated troponin peaked @ 2.198 echo pending to evaluate LV function and assess for WMA currently treated with ACEI & ARB - no benefit to both - will stop ACEI heparin gtt for anticoagulation and also treated with antiplatelet therapy 3. Acute on possibly chronic diastolic heart failure continue IV diuretics echo pending 4. Hypertension medication adjustment 5. History of a CVA. will continue Plavix due to CVA history 6. OA currently treated with 2 NSAIDs, oral and IV steroids will stop NSAIDs while on steroids due to risk for potential GI bleeding TAMARA GALLEGOS [employer] Dec 09, 2016 14:14
[2016-12-09] MEDS ORDERED: hydrALAZINE 20 MG/ML VIAL. IVP PRN (15:15)
--- NOTE | 2016-12-09 15:24 | PDOC ---
PULMONARY PROGRESS NOTES Subjective no soa Vitals Vital Signs Date Time Temp Pulse Resp B/P Pulse Ox O2 Delivery O2 Flow Rate FiO2 12/09/16 11:43 Nasal Cannula 2.0 12/09/16 10:33 97.5 77 20 124/64 94 97.5 General: Alert, No acute distress Lungs: Clear, Crackles (bases) Cardiovascular: S1 Abdomen: Soft Neuro Exam: Alert Extremities: No Edema Skin: Warm Labs Laboratory Tests Test 12/07/16 18:15 12/07/16 18:18 12/07/16 21:52 12/08/16 02:30 Influenza Type A Antigen Positive (NEGATIVE) Influenza Type B Antigen Negative (NEGATIVE) White Blood Count 5.2x10^3/uL (4.0-11.0) Red Blood Count 3.39x10^6/uL (3.50-5.40) Hemoglobin 9.0g/dL (12.0-15.5) Hematocrit 27.9% (36.0-47.0) Mean Corpuscular Volume 82fL (79-100) Mean Corpuscular Hemoglobin 27pg (25-35) Mean Corpuscular Hemoglobin Concent 32g/dL (31-37) Red Cell Distribution Width 19.1% (11.5-14.5) Platelet Count 148x10^3/uL (140-400) Neutrophils (%) (Auto) 94% (31-73) Lymphocytes (%) (Auto) 1% (24-48) Monocytes (%) (Auto) 4% (0-9) Eosinophils (%) (Auto) 0% (0-3) Basophils (%) (Auto) 0% (0-3) Neutrophils # (Auto) 4.9x10^3uL (1.8-7.7) Lymphocytes # (Auto) 0.1x10^3/uL (1.0-4.8) Monocytes # (Auto) 0.2x10^3/uL (0.0-1.1) Eosinophils # (Auto) 0.0x10^3/uL (0.0-0.7) Basophils # (Auto) 0.0x10^3/uL (0.0-0.2) Segmented Neutrophils % 77% (35-66) Band Neutrophils % 17% (0-9) Monocytes % 6% (0-10) Toxic Granulation Present Platelet Estimate Adequate (ADEQUATE) Poikilocytosis Mod Anisocytosis Slight Ovalocytes Few Schistocytes Few RBC Morphology Bizarre Forms Few Sodium Level 138mmol/L (136-145) Potassium Level 4.3mmol/L (3.5-5.1) Chloride Level 101mmol/L (98-107) Carbon Dioxide Level 25mmol/L (21-32) Anion Gap 12 (6-14) Blood Urea Nitrogen 22mg/dL (7-20) Creatinine 0.9mg/dL (0.6-1.0) Estimated GFR (Cockcroft-Gault) 60.4 BUN/Creatinine Ratio 24 (6-20) Glucose Level 174mg/dL (70-99) Calcium Level 8.3mg/dL (8.5-10.1) Total Bilirubin 0.7mg/dL (0.2-1.0) Aspartate Amino Transf (AST/SGOT) 42U/L (15-37) Alanine Aminotransferase (ALT/SGPT) 10U/L (14-59) Alkaline Phosphatase 89U/L (46-116) Troponin I Quantitative 2.198ng/mL (0.000-0.055) 2.084ng/mL (0.000-0.055) KV-Ikj-G-Type Natriuretic Peptide 20115ao/mL (0-449) Total Protein 5.5g/dL (6.4-8.2) Albumin 2.2g/dL (3.4-5.0) Albumin/Globulin Ratio 0.7 (1.0-1.7) Prothrombin Time 14.9SEC (11.7-14.0) Prothromb Time International Ratio 1.2 (0.8-1.1) Activated Partial Thromboplast Time > 150SEC (24-38) Heparin Anti-Xa Act, Unfractionated 0.28IU/mL (0.30-0.70) Test 12/08/16 03:05 12/08/16 09:00 12/08/16 11:35 12/08/16 15:10 Nasal Screen MRSA (PCR) Negative (Negative) Heparin Anti-Xa Act, Unfractionated 0.52IU/mL (0.30-0.70) 0.44IU/mL (0.30-0.70) Troponin I Quantitative 1.331ng/mL (0.000-0.055) White Blood Count 6.1x10^3/uL (4.0-11.0) Red Blood Count 3.28x10^6/uL (3.50-5.40) Hemoglobin 8.7g/dL (12.0-15.5) Hematocrit 27.0% (36.0-47.0) Mean Corpuscular Volume 82fL (79-100) Mean Corpuscular Hemoglobin 27pg (25-35) Mean Corpuscular Hemoglobin Concent 32g/dL (31-37) Red Cell Distribution Width 18.5% (11.5-14.5) Platelet Count 141x10^3/uL (140-400) Neutrophils (%) (Auto) 92% (31-73) Lymphocytes (%) (Auto) 3% (24-48) Monocytes (%) (Auto) 5% (0-9) Eosinophils (%) (Auto) 0% (0-3) Basophils (%) (Auto) 1% (0-3) Neutrophils # (Auto) 5.6x10^3uL (1.8-7.7) Lymphocytes # (Auto) 0.2x10^3/uL (1.0-4.8) Monocytes # (Auto) 0.3x10^3/uL (0.0-1.1) Eosinophils # (Auto) 0.0x10^3/uL (0.0-0.7) Basophils # (Auto) 0.0x10^3/uL (0.0-0.2) Sodium Level 138mmol/L (136-145) Potassium Level 3.3mmol/L (3.5-5.1) Chloride Level 101mmol/L (98-107) Carbon Dioxide Level 27mmol/L (21-32) Anion Gap 10 (6-14) Blood Urea Nitrogen 21mg/dL (7-20) Creatinine 1.0mg/dL (0.6-1.0) Estimated GFR (Cockcroft-Gault) 53.5 Glucose Level 122mg/dL (70-99) Calcium Level 8.4mg/dL (8.5-10.1) Test 12/09/16 05:00 12/09/16 05:03 Heparin Anti-Xa Act, Unfractionated 0.44IU/mL (0.30-0.70) White Blood Count 2.3x10^3/uL (4.0-11.0) Red Blood Count 2.92x10^6/uL (3.50-5.40) Hemoglobin 7.7g/dL (12.0-15.5) Hematocrit 23.7% (36.0-47.0) Mean Corpuscular Volume 81fL (79-100) Mean Corpuscular Hemoglobin 27pg (25-35) Mean Corpuscular Hemoglobin Concent 33g/dL (31-37) Red Cell Distribution Width 18.9% (11.5-14.5) Platelet Count 132x10^3/uL (140-400) Neutrophils (%) (Auto) 90% (31-73) Lymphocytes (%) (Auto) 3% (24-48) Monocytes (%) (Auto) 7% (0-9) Eosinophils (%) (Auto) 0% (0-3) Basophils (%) (Auto) 0% (0-3) Neutrophils # (Auto) 2.1x10^3uL (1.8-7.7) Lymphocytes # (Auto) 0.1x10^3/uL (1.0-4.8) Monocytes # (Auto) 0.1x10^3/uL (0.0-1.1) Eosinophils # (Auto) 0.0x10^3/uL (0.0-0.7) Basophils # (Auto) 0.0x10^3/uL (0.0-0.2) Sodium Level 137mmol/L (136-145) Potassium Level 4.0mmol/L (3.5-5.1) Chloride Level 104mmol/L (98-107) Carbon Dioxide Level 26mmol/L (21-32) Anion Gap 7 (6-14) Blood Urea Nitrogen 22mg/dL (7-20) Creatinine 1.0mg/dL (0.6-1.0) Estimated GFR (Cockcroft-Gault) 53.5 Glucose Level 274mg/dL (70-99) Calcium Level 8.0mg/dL (8.5-10.1) Laboratory Tests Test 12/09/16 05:00 12/09/16 05:03 Heparin Anti-Xa Act, Unfractionated 0.44IU/mL (0.30-0.70) White Blood Count 2.3x10^3/uL (4.0-11.0) Red Blood Count 2.92x10^6/uL (3.50-5.40) Hemoglobin 7.7g/dL (12.0-15.5) Hematocrit 23.7% (36.0-47.0) Mean Corpuscular Volume 81fL (79-100) Mean Corpuscular Hemoglobin 27pg (25-35) Mean Corpuscular Hemoglobin Concent 33g/dL (31-37) Red Cell Distribution Width 18.9% (11.5-14.5) Platelet Count 132x10^3/uL (140-400) Neutrophils (%) (Auto) 90% (31-73) Lymphocytes (%) (Auto) 3% (24-48) Monocytes (%) (Auto) 7% (0-9) Eosinophils (%) (Auto) 0% (0-3) Basophils (%) (Auto) 0% (0-3) Neutrophils # (Auto) 2.1x10^3uL (1.8-7.7) Lymphocytes # (Auto) 0.1x10^3/uL (1.0-4.8) Monocytes # (Auto) 0.1x10^3/uL (0.0-1.1) Eosinophils # (Auto) 0.0x10^3/uL (0.0-0.7) Basophils # (Auto) 0.0x10^3/uL (0.0-0.2) Sodium Level 137mmol/L (136-145) Potassium Level 4.0mmol/L (3.5-5.1) Chloride Level 104mmol/L (98-107) Carbon Dioxide Level 26mmol/L (21-32) Anion Gap 7 (6-14) Blood Urea Nitrogen 22mg/dL (7-20) Creatinine 1.0mg/dL (0.6-1.0) Estimated GFR (Cockcroft-Gault) 53.5 Glucose Level 274mg/dL (70-99) Calcium Level 8.0mg/dL (8.5-10.1) Medications Active Scripts Medications Dose Route/Sig Days Date Category Senna Laxative (Sennosides) 8.6 Mg Tablet 8.6 Mg PO 12/08/16 Reported Tramadol Hcl 50 Mg Tablet 1 Tab PO PRN Q6HRS 12/08/16 Reported Proair Hfa Inhaler (Albuterol Sulfate) 8.5 Gm Hfa.aer.ad 1 Puff INH PRN Q6HRS PRN 12/08/16 Reported Meloxicam 15 Mg Tablet 1 Tab PO DAILY 12/08/16 Reported Prednisone 10 Mg Tablet 10 Mg PO DAILY 12/08/16 Reported Leflunomide 10 Mg Tablet 10 Mg PO 12/08/16 Reported Folic Acid 1 Mg Tablet 1 Tab PO DAILY 12/08/16 Reported Levaquin (Levofloxacin) 250 Mg Tablet 250 Mg PO DAILY 06/29/15 Rx Loperamide (Loperamide Hcl) 2 Mg Capsule 2 Mg PO PRN Q4HRS PRN 06/26/15 Reported Promethazine Hcl 12.5 Mg Tablet 12.5 Mg PO Q6H PRN 06/26/15 Reported Atorvastatin Calcium 20 Mg Tablet 20 Mg PO DAILY 06/26/15 Reported Clopidogrel (Clopidogrel Bisulfate) 75 Mg Tablet 75 Mg PO DAILY 06/26/15 Reported Losartan Potassium 50 Mg Tablet 50 Mg PO DAILY 06/26/15 Reported Ibuprofen 200 Mg Tablet 200 Mg PO Q6HRS PRN 06/26/15 Reported Nabumetone 500 Mg Tablet 1 Tab PO BID 06/26/15 Reported Lisinopril 10 Mg Tablet 10 Mg PO DAILY 06/26/15 Reported Omeprazole 40 Mg Capsule.dr 40 Mg PO DAILY 06/26/15 Reported Hydroxychloroquine Sulfate 200 Mg Tablet 1 Tab PO BID 06/26/15 Reported Impression . 1. Acute respiratory failure secondary to influenza and underlying pulmonary fibrosis 2. Elevated troponin level, Cardiology has been consulted, workup in progress. 3. Pulmonary fibrosis with acute exacerbation. 4. Secondary pulmonary Hypertension. 5. difficult to rule out pneumonia. Plan . 1. We will continue oxygen supplementation. 2. Continue empiric antibiotics. 3. Cardiology consulted. Follow their recommendations. 4. Continue Solu-Medrol. (on home PO steroids for fibrosis) 5. Nebulized treatments. 6. DVT and GI prophylaxis. d/w daughter IKE ROMANO MD Dec 09, 2016 15:24
[2016-12-09] MEDS: ALBUTEROL SULFATE 2.5 MG/3 ML NEBU. NEB PRN ×2 (15:26→19:25)
[2016-12-09] MEDS: VANCOMYCIN PER PHARMACY MC PRN ×2 (15:34→22:07)
[2016-12-09] MEDS: ANTI-COAG MONITOR BY PHARMACY. MC PRN (15:36)
[2016-12-09] MEDS: ATORVASTATIN CALCIUM 20 MG TABLET PO SCH (21:25)
[2016-12-09] MEDS: VANCOMYCIN 1 GM in IV NORMAL SALINE 250ML 250 ML IV SCH (22:50)
[2016-12-10] VITALS (7 sets, daily range): BP systolic 137–154; BP diastolic 70–86
[2016-12-10] MEDS: PIPERACILLIN/TAZOBACTAM 3.375 GM in IV NORMAL SALINE 50ML 50 ML IV SCH ×5 (00:12→23:04)
[2016-12-10 05:24] LABS: BASO % 0 % (0-3); EOS % 0 % (0-3); HEMATOCRIT 26.2 % (36.0-47.0); HEMOGLOBIN 8.7 g/dL (12.0-15.5); LYMPH # 0.1 x10^3/uL (1.0-4.8); LYMPH % 3 % (24-48); MEAN CORPUSCULAR HEMOGLOBIN 27 pg (25-35); MEAN CORPUSCULAR HGB CONC 33 g/dL (31-37); MEAN CORPUSCULAR VOLUME 81 fL (79-100); MONO % 9 % (0-9); NEUT % 89 % (31-73); PLATELET COUNT 132 x10^3/uL (140-400); RED BLOOD COUNT 3.24 x10^6/uL (3.50-5.40); RED CELL DISTRIBUTION WIDTH 17.7 % (11.5-14.5); WHITE BLOOD COUNT 5.4 x10^3/uL (4.0-11.0)
[2016-12-10 05:39] LABS: CALCIUM 8.1 mg/dL (8.5-10.1); GFR 53.5; POTASSIUM 3.5 mmol/L (3.5-5.1)
[2016-12-10] MEDS: HEPARIN 25,000UTS/500ML PREMIX 500 ML IV PRN (05:53)
--- NOTE | 2016-12-10 09:00 | CARD ---
APPROVED REPORT EXAM: Two-dimensional and M-mode echocardiogram with Doppler and color Doppler. Other Information Quality : Good INDICATION Non STEMI 2D DIMENSIONS RVDd2.6 (2.9-3.5cm)Left Atrium(2D)3.4 (1.6-4.0cm) IVSd1.0 (0.7-1.1cm)Aortic Root(2D)2.3 (2.0-3.7cm) LVDd3.7 (3.9-5.9cm)LVOT Diameter2.0 (1.8-2.4cm) PWd1.0 (0.7-1.1cm)LVDs2.9 (2.5-4.0cm) FS (%) 21.6 %SV26.2 ml LVEF(%)45.0 (>50%) Aortic Valve AoV Peak Senthil.162.3cm/sAoV VTI29.2cm AO Peak GR.10.5mmHgLVOT Peak Senthil.116.4cm/s AO Mean GR.6mmHgAVA (VMAX)2.15cm2 SHWETHA (VTI)2.30cm2 Mitral Valve MV E Dzaljqsz93.6cm/sMV DECEL CKNA401pe MV A Spvhthlu409.9cm/sE/A Ratio0.8 Tricuspid Valve TR P. Npfoxvzy444bi/sRAP [id number] TR Peak Gr.87rjMdJJYG18yjIj Pulmonary Vein S1 Yyvwhrit63.8cm/sD2 Shvenowf58.6cm/s PVa [id number] LEFT VENTRICLE The left ventricle is normal size. There is normal left ventricular wall thickness. Left ventricle sy stolic function is mildly impaired. The Ejection Fraction is 35%. There is global hypokinesis with se ptal dyskinesis likely secondary to conduction abnormality. Transmitral Doppler flow pattern is Grade I-abnormal relaxation pattern. RIGHT VENTRICLE The right ventricle is normal size. The right ventricular systolic function is normal. ATRIA The left atrium size is normal. The right atrium size is normal. The interatrial septum is intact wit h no evidence for an atrial septal defect or patent foramen ovale as noted on 2-D or Doppler imaging. AORTIC VALVE The aortic valve is not well visualized, grossly appears trileaflet. Doppler and Color Flow revealed no significant aortic regurgitation. There is no significant aortic valvular stenosis. MITRAL VALVE The mitral valve is calcified but opens well. Posterior mitral annular calcification is mild. There i s no evidence of mitral valve prolapse. There is no mitral valve stenosis. Doppler and Color-flow rev ealed mild mitral regurgitation. TRICUSPID VALVE The tricuspid valve is normal in structure and function. Doppler and Color Flow revealed trace to mil d tricuspid regurgitation. The PA pressure was estimated at 38 mmHg. There is no tricuspid valve sten osis. PULMONIC VALVE Doppler and Color Flow revealed trace to mild pulmonic valvular regurgitation. There is no pulmonic v alvular stenosis. GREAT VESSELS The aortic root is normal in size. The ascending aorta is normal in size. The IVC is normal in size a nd collapses >50% with inspiration. PERICARDIAL EFFUSION There is no evidence of significant pericardial effusion. Critical Notification Critical Value: No <Conclusion> Left ventricle systolic function is mildly impaired. The Ejection Fraction is 35%. There is global hypokinesis with septal dyskinesis likely secondary to conduction abnormality.
[2016-12-10] MEDS: methylPREDNISolone SOD SUCC PF 125 MG/2 ML VIAL. IV SCH (09:22)
[2016-12-10] MEDS: LEFLUNOMIDE 10 MG TABLET. PO SCH (09:22)
[2016-12-10] MEDS: HYDROXYCHLOROQUINE 200 MG TABLET PO SCH ×2 (09:22→20:36)
[2016-12-10] MEDS: CLOPIDOGREL BISULFATE 75 MG TABLET PO SCH (09:22)
[2016-12-10] MEDS: FOLIC ACID 1 MG TABLET PO SCH (09:23)
[2016-12-10] MEDS: OSELTAMIVIR 75 MG CAPSULE PO SCH ×2 (09:23→20:36)
[2016-12-10] MEDS: PANTOPRAZOLE 40 MG TABLET. PO SCH (09:23)
[2016-12-10] MEDS: FUROSEMIDE 20 MG TABLET PO SCH (09:23)
[2016-12-10] MEDS: LEVOFLOXACIN 250 MG TABLET. PO SCH (09:23)
[2016-12-10] MEDS: SENNOSIDES 8.6 MG TABLET PO SCH (09:23)
[2016-12-10] MEDS: LOSARTAN POTASSIUM 50 MG TABLET. PO SCH (09:23)
--- NOTE | 2016-12-10 11:38 | PDOC ---
CARDIO Progress Notes Date and Time Date of Service 12/10/2016 Time of Evaluation 1137 Subjective Subjective: No Chest Pain, No shortness of breath, No Palpitations, No Dizziness, Other (feeling better; wants to shower) Vitals Vitals Vital Signs Date Time Temp Pulse Resp B/P Pulse Ox O2 Delivery O2 Flow Rate FiO2 12/10/16 09:23 76 148/70 12/10/16 08:00 Room Air 12/10/16 07:00 97.4 24 99 2.0 97.4 Weight Weight [ ] Input and Output Intake and Output Intake and Output 12/10/16 07:00 Intake Total 1153 ml Balance 1153 ml Intake Oral 600 ml IV Total 553 ml # Voids 2 Laboratory Labs Laboratory Tests Test 12/09/16 19:35 12/10/16 04:14 Vancomycin Level Trough 12.2mcg/mL (10.0-20.0) Vancomycin Last Dose Date 12/08/16 Vancomycin Last Dose Time 2000 White Blood Count 5.4x10^3/uL (4.0-11.0) Red Blood Count 3.24x10^6/uL (3.50-5.40) Hemoglobin 8.7g/dL (12.0-15.5) Hematocrit 26.2% (36.0-47.0) Mean Corpuscular Volume 81fL (79-100) Mean Corpuscular Hemoglobin 27pg (25-35) Mean Corpuscular Hemoglobin Concent 33g/dL (31-37) Red Cell Distribution Width 17.7% (11.5-14.5) Platelet Count 132x10^3/uL (140-400) Neutrophils (%) (Auto) 89% (31-73) Lymphocytes (%) (Auto) 3% (24-48) Monocytes (%) (Auto) 9% (0-9) Eosinophils (%) (Auto) 0% (0-3) Basophils (%) (Auto) 0% (0-3) Neutrophils # (Auto) 4.8x10^3uL (1.8-7.7) Lymphocytes # (Auto) 0.1x10^3/uL (1.0-4.8) Monocytes # (Auto) 0.5x10^3/uL (0.0-1.1) Eosinophils # (Auto) 0.0x10^3/uL (0.0-0.7) Basophils # (Auto) 0.0x10^3/uL (0.0-0.2) Heparin Anti-Xa Act, Unfractionated 0.36IU/mL (0.30-0.70) Sodium Level 140mmol/L (136-145) Potassium Level 3.5mmol/L (3.5-5.1) Chloride Level 105mmol/L (98-107) Carbon Dioxide Level 25mmol/L (21-32) Anion Gap 10 (6-14) Blood Urea Nitrogen 22mg/dL (7-20) Creatinine 1.0mg/dL (0.6-1.0) Estimated GFR (Cockcroft-Gault) 53.5 Glucose Level 262mg/dL (70-99) Calcium Level 8.1mg/dL (8.5-10.1) Microbiology Micro Microbiology 12/07/16 Blood Culture - Preliminary, Resulted NO GROWTH AFTER 2 DAYS Case Discussion Case Discussed with: Family Physical Exam HEENT: Neck Supple W Full Motion Chest: Symmetric LUNGS: Other (diminished posteriorly in bases) Heart: S1S2, RRR Abdomen: Soft N/T Extremities: No Edema Neurology: alert, oriented, follow commands Assessment Assessment 1. Acute respiratory failure with ? chronic known history of pulm fibrosis influenza positive tx per PULM - ? IV and oral steroids 2. NSTEMI, likely demand mediated troponin peaked @ 2.198 echo: LVEF depressed @ 35% with global hypokinesis and septal dyskinesis - ? new had extensive cardiac evaluation @ [facility] in the last 2 - 3 years - will request records if further evaluation needed - would need to defer until pt can lie flat will add beta-blockers in the meantime continue ARB heparin gtt for anticoagulation and also treated with antiplatelet therapy 3. Acute on possibly chronic systolic and diastolic heart failure now on oral diuretics depressed LV function adding BB for HTN control 4. Hypertension medication adjustment 5. History of a CVA. will continue Plavix due to CVA history 6. OA currently treated with 2 NSAIDs, oral and IV steroids will stop NSAIDs while on steroids due to risk for potential GI bleeding TAMARA GALLEGOS APRN Dec 10, 2016 11:38
--- NOTE | 2016-12-10 13:05 | PDOC ---
PULMONARY PROGRESS NOTES Subjective no soa Vitals Vital Signs Date Time Temp Pulse Resp B/P Pulse Ox O2 Delivery O2 Flow Rate FiO2 12/10/16 11:39 97.8 76 18 144/77 93 Room Air 97.8 12/10/16 07:00 2.0 General: Alert, No acute distress Lungs: Crackles (bases) Cardiovascular: S1 Abdomen: Soft Neuro Exam: Alert Extremities: No Edema Skin: Warm Labs Laboratory Tests Test 12/08/16 15:10 12/09/16 05:00 12/09/16 05:03 12/09/16 19:35 Heparin Anti-Xa Act, Unfractionated 0.44IU/mL (0.30-0.70) 0.44IU/mL (0.30-0.70) White Blood Count 2.3x10^3/uL (4.0-11.0) Red Blood Count 2.92x10^6/uL (3.50-5.40) Hemoglobin 7.7g/dL (12.0-15.5) Hematocrit 23.7% (36.0-47.0) Mean Corpuscular Volume 81fL (79-100) Mean Corpuscular Hemoglobin 27pg (25-35) Mean Corpuscular Hemoglobin Concent 33g/dL (31-37) Red Cell Distribution Width 18.9% (11.5-14.5) Platelet Count 132x10^3/uL (140-400) Neutrophils (%) (Auto) 90% (31-73) Lymphocytes (%) (Auto) 3% (24-48) Monocytes (%) (Auto) 7% (0-9) Eosinophils (%) (Auto) 0% (0-3) Basophils (%) (Auto) 0% (0-3) Neutrophils # (Auto) 2.1x10^3uL (1.8-7.7) Lymphocytes # (Auto) 0.1x10^3/uL (1.0-4.8) Monocytes # (Auto) 0.1x10^3/uL (0.0-1.1) Eosinophils # (Auto) 0.0x10^3/uL (0.0-0.7) Basophils # (Auto) 0.0x10^3/uL (0.0-0.2) Sodium Level 137mmol/L (136-145) Potassium Level 4.0mmol/L (3.5-5.1) Chloride Level 104mmol/L (98-107) Carbon Dioxide Level 26mmol/L (21-32) Anion Gap 7 (6-14) Blood Urea Nitrogen 22mg/dL (7-20) Creatinine 1.0mg/dL (0.6-1.0) Estimated GFR (Cockcroft-Gault) 53.5 Glucose Level 274mg/dL (70-99) Calcium Level 8.0mg/dL (8.5-10.1) Vancomycin Level Trough 12.2mcg/mL (10.0-20.0) Vancomycin Last Dose Date 12/08/16 Vancomycin Last Dose Time 2000 Test 12/10/16 04:14 White Blood Count 5.4x10^3/uL (4.0-11.0) Red Blood Count 3.24x10^6/uL (3.50-5.40) Hemoglobin 8.7g/dL (12.0-15.5) Hematocrit 26.2% (36.0-47.0) Mean Corpuscular Volume 81fL (79-100) Mean Corpuscular Hemoglobin 27pg (25-35) Mean Corpuscular Hemoglobin Concent 33g/dL (31-37) Red Cell Distribution Width 17.7% (11.5-14.5) Platelet Count 132x10^3/uL (140-400) Neutrophils (%) (Auto) 89% (31-73) Lymphocytes (%) (Auto) 3% (24-48) Monocytes (%) (Auto) 9% (0-9) Eosinophils (%) (Auto) 0% (0-3) Basophils (%) (Auto) 0% (0-3) Neutrophils # (Auto) 4.8x10^3uL (1.8-7.7) Lymphocytes # (Auto) 0.1x10^3/uL (1.0-4.8) Monocytes # (Auto) 0.5x10^3/uL (0.0-1.1) Eosinophils # (Auto) 0.0x10^3/uL (0.0-0.7) Basophils # (Auto) 0.0x10^3/uL (0.0-0.2) Heparin Anti-Xa Act, Unfractionated 0.36IU/mL (0.30-0.70) Sodium Level 140mmol/L (136-145) Potassium Level 3.5mmol/L (3.5-5.1) Chloride Level 105mmol/L (98-107) Carbon Dioxide Level 25mmol/L (21-32) Anion Gap 10 (6-14) Blood Urea Nitrogen 22mg/dL (7-20) Creatinine 1.0mg/dL (0.6-1.0) Estimated GFR (Cockcroft-Gault) 53.5 Glucose Level 262mg/dL (70-99) Calcium Level 8.1mg/dL (8.5-10.1) Laboratory Tests Test 12/09/16 19:35 12/10/16 04:14 Vancomycin Level Trough 12.2mcg/mL (10.0-20.0) Vancomycin Last Dose Date 12/08/16 Vancomycin Last Dose Time 2000 White Blood Count 5.4x10^3/uL (4.0-11.0) Red Blood Count 3.24x10^6/uL (3.50-5.40) Hemoglobin 8.7g/dL (12.0-15.5) Hematocrit 26.2% (36.0-47.0) Mean Corpuscular Volume 81fL (79-100) Mean Corpuscular Hemoglobin 27pg (25-35) Mean Corpuscular Hemoglobin Concent 33g/dL (31-37) Red Cell Distribution Width 17.7% (11.5-14.5) Platelet Count 132x10^3/uL (140-400) Neutrophils (%) (Auto) 89% (31-73) Lymphocytes (%) (Auto) 3% (24-48) Monocytes (%) (Auto) 9% (0-9) Eosinophils (%) (Auto) 0% (0-3) Basophils (%) (Auto) 0% (0-3) Neutrophils # (Auto) 4.8x10^3uL (1.8-7.7) Lymphocytes # (Auto) 0.1x10^3/uL (1.0-4.8) Monocytes # (Auto) 0.5x10^3/uL (0.0-1.1) Eosinophils # (Auto) 0.0x10^3/uL (0.0-0.7) Basophils # (Auto) 0.0x10^3/uL (0.0-0.2) Heparin Anti-Xa Act, Unfractionated 0.36IU/mL (0.30-0.70) Sodium Level 140mmol/L (136-145) Potassium Level 3.5mmol/L (3.5-5.1) Chloride Level 105mmol/L (98-107) Carbon Dioxide Level 25mmol/L (21-32) Anion Gap 10 (6-14) Blood Urea Nitrogen 22mg/dL (7-20) Creatinine 1.0mg/dL (0.6-1.0) Estimated GFR (Cockcroft-Gault) 53.5 Glucose Level 262mg/dL (70-99) Calcium Level 8.1mg/dL (8.5-10.1) Medications Active Scripts Medications Dose Route/Sig Days Date Category Senna Laxative (Sennosides) 8.6 Mg Tablet 8.6 Mg PO 12/08/16 Reported Tramadol Hcl 50 Mg Tablet 1 Tab PO PRN Q6HRS 12/08/16 Reported Proair Hfa Inhaler (Albuterol Sulfate) 8.5 Gm Hfa.aer.ad 1 Puff INH PRN Q6HRS PRN 12/08/16 Reported Meloxicam 15 Mg Tablet 1 Tab PO DAILY 12/08/16 Reported Prednisone 10 Mg Tablet 10 Mg PO DAILY 12/08/16 Reported Leflunomide 10 Mg Tablet 10 Mg PO 12/08/16 Reported Folic Acid 1 Mg Tablet 1 Tab PO DAILY 12/08/16 Reported Levaquin (Levofloxacin) 250 Mg Tablet 250 Mg PO DAILY 06/29/15 Rx Loperamide (Loperamide Hcl) 2 Mg Capsule 2 Mg PO PRN Q4HRS PRN 06/26/15 Reported Promethazine Hcl 12.5 Mg Tablet 12.5 Mg PO Q6H PRN 06/26/15 Reported Atorvastatin Calcium 20 Mg Tablet 20 Mg PO DAILY 06/26/15 Reported Clopidogrel (Clopidogrel Bisulfate) 75 Mg Tablet 75 Mg PO DAILY 06/26/15 Reported Losartan Potassium 50 Mg Tablet 50 Mg PO DAILY 06/26/15 Reported Ibuprofen 200 Mg Tablet 200 Mg PO Q6HRS PRN 06/26/15 Reported Nabumetone 500 Mg Tablet 1 Tab PO BID 06/26/15 Reported Lisinopril 10 Mg Tablet 10 Mg PO DAILY 06/26/15 Reported Omeprazole 40 Mg Capsule.dr 40 Mg PO DAILY 06/26/15 Reported Hydroxychloroquine Sulfate 200 Mg Tablet 1 Tab PO BID 06/26/15 Reported Impression . 1. Acute respiratory failure secondary to influenza and underlying pulmonary fibrosis 2. Elevated troponin level, Cardiology following 3. Pulmonary fibrosis with acute exacerbation. 4. Secondary pulmonary Hypertension. 5. difficult to rule out pneumonia. Plan . 1. We will continue oxygen supplementation. 2. Continue empiric antibiotics. BC negative. dc vanc today 3. Cardiology consulted. Follow their recommendations. 4. d/c Solu-Medrol. start PO steroids for fibrosis) 5. Nebulized treatments. 6. DVT and GI prophylaxis. d/w daughter IKE ROMANO MD Dec 10, 2016 13:05
[2016-12-10] MEDS: NYSTATIN TOPICAL POWDER 15GM BOTTLE. TP SCH ×2 (15:30→20:38)
[2016-12-10] MEDS ORDERED: METOPROLOL SUCC 24HR ER 25 MG TAB.ER.24H. PO SCH (17:00)
[2016-12-10] MEDS: ATORVASTATIN CALCIUM 20 MG TABLET PO SCH (20:36)
[2016-12-11] VITALS (7 sets, daily range): BP systolic 128–160; BP diastolic 64–93
[2016-12-11 04:56] LABS: BASO % 0 % (0-3); EOS % 0 % (0-3); HEMATOCRIT 28.1 % (36.0-47.0); HEMOGLOBIN 9.5 g/dL (12.0-15.5); LYMPH # 0.3 x10^3/uL (1.0-4.8); LYMPH % 5 % (24-48); MEAN CORPUSCULAR HEMOGLOBIN 27 pg (25-35); MEAN CORPUSCULAR HGB CONC 34 g/dL (31-37); MEAN CORPUSCULAR VOLUME 80 fL (79-100); MONO % 11 % (0-9); NEUT % 84 % (31-73); PLATELET COUNT 174 x10^3/uL (140-400); RED BLOOD COUNT 3.53 x10^6/uL (3.50-5.40); RED CELL DISTRIBUTION WIDTH 17.6 % (11.5-14.5)
[2016-12-11] MEDS: PIPERACILLIN/TAZOBACTAM 3.375 GM in IV NORMAL SALINE 50ML 50 ML IV SCH ×2 (05:08→12:00)
[2016-12-11 05:39] LABS: CALCIUM 8.2 mg/dL (8.5-10.1); CREATININE 1.1 mg/dL (0.6-1.0); GFR 47.9; POTASSIUM 3.1 mmol/L (3.5-5.1)
[2016-12-11] MEDS: HEPARIN 25,000UTS/500ML PREMIX 500 ML IV PRN (05:43)
[2016-12-11 05:55] LABS: CHOLESTEROL/HDL RATIO 2.7
[2016-12-11] MEDS: CLOPIDOGREL BISULFATE 75 MG TABLET PO SCH (10:03)
[2016-12-11] MEDS: HYDROXYCHLOROQUINE 200 MG TABLET PO SCH ×2 (10:03→21:02)
[2016-12-11] MEDS: PREDNISONE 20 MG TABLET PO SCH (10:03)
[2016-12-11] MEDS: FUROSEMIDE 20 MG TABLET PO SCH (10:03)
[2016-12-11] MEDS: FOLIC ACID 1 MG TABLET PO SCH (10:03)
[2016-12-11] MEDS: LEFLUNOMIDE 10 MG TABLET. PO SCH (10:04)
[2016-12-11] MEDS: PANTOPRAZOLE 40 MG TABLET. PO SCH (10:04)
[2016-12-11] MEDS: SENNOSIDES 8.6 MG TABLET PO SCH (10:04)
[2016-12-11] MEDS: LOSARTAN POTASSIUM 50 MG TABLET. PO SCH (10:04)
[2016-12-11] MEDS: LEVOFLOXACIN 250 MG TABLET. PO SCH (10:04)
[2016-12-11] MEDS: NYSTATIN TOPICAL POWDER 15GM BOTTLE. TP SCH ×2 (10:05→21:05)
[2016-12-11] MEDS: OSELTAMIVIR 75 MG CAPSULE PO SCH ×2 (10:08→21:03)
--- NOTE | 2016-12-11 10:58 | PDOC ---
CARDIO Progress Notes Date and Time Date of Service 12/11/2016 Time of Evaluation 1054 Subjective Subjective: No Chest Pain, No Palpitations, No Dizziness, Other (fatigued and weak) Vitals Vitals Vital Signs Date Time Temp Pulse Resp B/P Pulse Ox O2 Delivery O2 Flow Rate FiO2 12/11/16 10:04 74 143/78 12/11/16 07:50 97.9 19 95 Room Air 97.9 12/10/16 15:00 2.0 Weight Weight [ ] Input and Output Intake and Output Intake and Output 12/11/16 07:00 Intake Total 440 ml Balance 440 ml Intake Oral 440 ml # Voids 1 # Bowel Movements 1 Laboratory Labs Laboratory Tests Test 12/11/16 03:45 White Blood Count 5.0x10^3/uL (4.0-11.0) Red Blood Count 3.53x10^6/uL (3.50-5.40) Hemoglobin 9.5g/dL (12.0-15.5) Hematocrit 28.1% (36.0-47.0) Mean Corpuscular Volume 80fL (79-100) Mean Corpuscular Hemoglobin 27pg (25-35) Mean Corpuscular Hemoglobin Concent 34g/dL (31-37) Red Cell Distribution Width 17.6% (11.5-14.5) Platelet Count 174x10^3/uL (140-400) Neutrophils (%) (Auto) 84% (31-73) Lymphocytes (%) (Auto) 5% (24-48) Monocytes (%) (Auto) 11% (0-9) Eosinophils (%) (Auto) 0% (0-3) Basophils (%) (Auto) 0% (0-3) Neutrophils # (Auto) 4.2x10^3uL (1.8-7.7) Lymphocytes # (Auto) 0.3x10^3/uL (1.0-4.8) Monocytes # (Auto) 0.5x10^3/uL (0.0-1.1) Eosinophils # (Auto) 0.0x10^3/uL (0.0-0.7) Basophils # (Auto) 0.0x10^3/uL (0.0-0.2) Heparin Anti-Xa Act, Unfractionated 0.29IU/mL (0.30-0.70) Sodium Level 138mmol/L (136-145) Potassium Level 3.1mmol/L (3.5-5.1) Chloride Level 103mmol/L (98-107) Carbon Dioxide Level 27mmol/L (21-32) Anion Gap 8 (6-14) Blood Urea Nitrogen 23mg/dL (7-20) Creatinine 1.1mg/dL (0.6-1.0) Estimated GFR (Cockcroft-Gault) 47.9 Glucose Level 173mg/dL (70-99) Calcium Level 8.2mg/dL (8.5-10.1) Magnesium Level 1.8mg/dL (1.8-2.4) Triglycerides Level 136mg/dL (0-150) Cholesterol Level 143mg/dL (0-200) LDL Cholesterol, Calculated 63mg/dL (0-100) VLDL Cholesterol, Calculated 27mg/dL (0-40) HDL Cholesterol 53mg/dL (40-60) Cholesterol/HDL Ratio 2.7 Microbiology Micro Microbiology 12/07/16 Blood Culture - Preliminary, Resulted NO GROWTH AFTER 3 DAYS Physical Exam HEENT: Neck Supple W Full Motion Chest: Symmetric LUNGS: Other (diminished posteriorly in bases) Heart: S1S2, RRR Abdomen: Soft N/T Extremities: No Edema Neurology: alert, oriented, follow commands Assessment Assessment 1. Acute respiratory failure with ? chronic known history of pulm fibrosis influenza positive tx per PULM 2. NSTEMI, likely demand mediated troponin peaked @ 2.198 echo: LVEF depressed @ 35% with global hypokinesis and septal dyskinesis - ? new echo @ [facility] 02/09/2015 with LVEF of 65%; mild DD; dilated LA; no ASD/PFO; no significant valvular disease event monitor done for TIA with PAT ~ 2 seconds continue beta-blockers an dARB stop heparin gtt and use DAPT with low dose aspirin not currently a candidate for aggressive evaluation of depressed LV function and is also a DNR will plan to see in the office in 4 - 6 weeks 3. Acute systolic and diastolic heart failure now on oral diuretics depressed LV function adding BB for HTN control 4. Hypertension increase BB to achieve better control 5. History of a CVA. will continue Plavix due to CVA history 6. OA medications adjusted holding NSAIDs due to use of DAPT and steroids TAMARA GALLEGOS APRN Dec 11, 2016 10:58
[2016-12-11] MEDS ORDERED: MAGNESIUM SULFATE 2GM 50 ML IV ONE (11:00)
--- NOTE | 2016-12-11 11:06 | PDOC ---
PROGRESS NOTES Chief Complaint Chief Complaint pt seen on 12/10/16, late entry cc: sob A/P Respiratory failure - influenza, IPF and possible pneumonia and congestive heart failure NSTEMI Anemia Possible acute on Chronic heart failure HTN HLP Mild hyperglycemia due to steroids. Anemia s/p 1 unit of PRBC Plan on Supplemental oxygen Treat pneumonia, pulmonology following obtain records from [facility], LVEF 35% Prednisone Tamiflu labs reviwed. History of Present Illness History of Present Illness sob better no chest pain no fevers no chills. Vitals Vitals Vital Signs Date Time Temp Pulse Resp B/P Pulse Ox O2 Delivery O2 Flow Rate FiO2 12/11/16 10:04 74 143/78 12/11/16 07:50 97.9 19 95 Room Air 97.9 12/10/16 15:00 2.0 Physical Exam General: Alert, Oriented X3, mild distress Heart: Regular rate, Other Lungs: Crackles (bases) Abdomen: Normal bowel sounds, Soft Extremities: No clubbing, No cyanosis Labs LABS Laboratory Tests Test 12/11/16 03:45 White Blood Count 5.0x10^3/uL (4.0-11.0) Red Blood Count 3.53x10^6/uL (3.50-5.40) Hemoglobin 9.5g/dL (12.0-15.5) Hematocrit 28.1% (36.0-47.0) Mean Corpuscular Volume 80fL (79-100) Mean Corpuscular Hemoglobin 27pg (25-35) Mean Corpuscular Hemoglobin Concent 34g/dL (31-37) Red Cell Distribution Width 17.6% (11.5-14.5) Platelet Count 174x10^3/uL (140-400) Neutrophils (%) (Auto) 84% (31-73) Lymphocytes (%) (Auto) 5% (24-48) Monocytes (%) (Auto) 11% (0-9) Eosinophils (%) (Auto) 0% (0-3) Basophils (%) (Auto) 0% (0-3) Neutrophils # (Auto) 4.2x10^3uL (1.8-7.7) Lymphocytes # (Auto) 0.3x10^3/uL (1.0-4.8) Monocytes # (Auto) 0.5x10^3/uL (0.0-1.1) Eosinophils # (Auto) 0.0x10^3/uL (0.0-0.7) Basophils # (Auto) 0.0x10^3/uL (0.0-0.2) Heparin Anti-Xa Act, Unfractionated 0.29IU/mL (0.30-0.70) Sodium Level 138mmol/L (136-145) Potassium Level 3.1mmol/L (3.5-5.1) Chloride Level 103mmol/L (98-107) Carbon Dioxide Level 27mmol/L (21-32) Anion Gap 8 (6-14) Blood Urea Nitrogen 23mg/dL (7-20) Creatinine 1.1mg/dL (0.6-1.0) Estimated GFR (Cockcroft-Gault) 47.9 Glucose Level 173mg/dL (70-99) Calcium Level 8.2mg/dL (8.5-10.1) Magnesium Level 1.8mg/dL (1.8-2.4) Triglycerides Level 136mg/dL (0-150) Cholesterol Level 143mg/dL (0-200) LDL Cholesterol, Calculated 63mg/dL (0-100) VLDL Cholesterol, Calculated 27mg/dL (0-40) HDL Cholesterol 53mg/dL (40-60) Cholesterol/HDL Ratio 2.7 Assessment and Plan Assessmemt and Plan Problems Medical Problems: (1) Elevated troponin Status: Acute (2) Idiopathic pulmonary fibrosis Status: Acute (3) Influenza Status: Acute (4) Non-STEMI (non-ST elevated myocardial infarction) Status: Acute Problems: Comment Review of Relevant I have reviewed the following items cony (where applicable) has been applied. Labs Laboratory Tests Test 12/09/16 19:35 12/10/16 04:14 12/11/16 03:45 Vancomycin Level Trough 12.2mcg/mL (10.0-20.0) Vancomycin Last Dose Date 12/08/16 Vancomycin Last Dose Time 1999 White Blood Count 5.4x10^3/uL (4.0-11.0) 5.0x10^3/uL (4.0-11.0) Red Blood Count 3.24x10^6/uL (3.50-5.40) 3.53x10^6/uL (3.50-5.40) Hemoglobin 8.7g/dL (12.0-15.5) 9.5g/dL (12.0-15.5) Hematocrit 26.2% (36.0-47.0) 28.1% (36.0-47.0) Mean Corpuscular Volume 81fL (79-100) 80fL (79-100) Mean Corpuscular Hemoglobin 27pg (25-35) 27pg (25-35) Mean Corpuscular Hemoglobin Concent 33g/dL (31-37) 34g/dL (31-37) Red Cell Distribution Width 17.7% (11.5-14.5) 17.6% (11.5-14.5) Platelet Count 132x10^3/uL (140-400) 174x10^3/uL (140-400) Neutrophils (%) (Auto) 89% (31-73) 84% (31-73) Lymphocytes (%) (Auto) 3% (24-48) 5% (24-48) Monocytes (%) (Auto) 9% (0-9) 11% (0-9) Eosinophils (%) (Auto) 0% (0-3) 0% (0-3) Basophils (%) (Auto) 0% (0-3) 0% (0-3) Neutrophils # (Auto) 4.8x10^3uL (1.8-7.7) 4.2x10^3uL (1.8-7.7) Lymphocytes # (Auto) 0.1x10^3/uL (1.0-4.8) 0.3x10^3/uL (1.0-4.8) Monocytes # (Auto) 0.5x10^3/uL (0.0-1.1) 0.5x10^3/uL (0.0-1.1) Eosinophils # (Auto) 0.0x10^3/uL (0.0-0.7) 0.0x10^3/uL (0.0-0.7) Basophils # (Auto) 0.0x10^3/uL (0.0-0.2) 0.0x10^3/uL (0.0-0.2) Heparin Anti-Xa Act, Unfractionated 0.36IU/mL (0.30-0.70) 0.29IU/mL (0.30-0.70) Sodium Level 140mmol/L (136-145) 138mmol/L (136-145) Potassium Level 3.5mmol/L (3.5-5.1) 3.1mmol/L (3.5-5.1) Chloride Level 105mmol/L (98-107) 103mmol/L (98-107) Carbon Dioxide Level 25mmol/L (21-32) 27mmol/L (21-32) Anion Gap 10 (6-14) 8 (6-14) Blood Urea Nitrogen 22mg/dL (7-20) 23mg/dL (7-20) Creatinine 1.0mg/dL (0.6-1.0) 1.1mg/dL (0.6-1.0) Estimated GFR (Cockcroft-Gault) 53.5 47.9 Glucose Level 262mg/dL (70-99) 173mg/dL (70-99) Calcium Level 8.1mg/dL (8.5-10.1) 8.2mg/dL (8.5-10.1) Magnesium Level 1.8mg/dL (1.8-2.4) Triglycerides Level 136mg/dL (0-150) Cholesterol Level 143mg/dL (0-200) LDL Cholesterol, Calculated 63mg/dL (0-100) VLDL Cholesterol, Calculated 27mg/dL (0-40) HDL Cholesterol 53mg/dL (40-60) Cholesterol/HDL Ratio 2.7 Laboratory Tests Test 12/11/16 03:45 White Blood Count 5.0x10^3/uL (4.0-11.0) Red Blood Count 3.53x10^6/uL (3.50-5.40) Hemoglobin 9.5g/dL (12.0-15.5) Hematocrit 28.1% (36.0-47.0) Mean Corpuscular Volume 80fL (79-100) Mean Corpuscular Hemoglobin 27pg (25-35) Mean Corpuscular Hemoglobin Concent 34g/dL (31-37) Red Cell Distribution Width 17.6% (11.5-14.5) Platelet Count 174x10^3/uL (140-400) Neutrophils (%) (Auto) 84% (31-73) Lymphocytes (%) (Auto) 5% (24-48) Monocytes (%) (Auto) 11% (0-9) Eosinophils (%) (Auto) 0% (0-3) Basophils (%) (Auto) 0% (0-3) Neutrophils # (Auto) 4.2x10^3uL (1.8-7.7) Lymphocytes # (Auto) 0.3x10^3/uL (1.0-4.8) Monocytes # (Auto) 0.5x10^3/uL (0.0-1.1) Eosinophils # (Auto) 0.0x10^3/uL (0.0-0.7) Basophils # (Auto) 0.0x10^3/uL (0.0-0.2) Heparin Anti-Xa Act, Unfractionated 0.29IU/mL (0.30-0.70) Sodium Level 138mmol/L (136-145) Potassium Level 3.1mmol/L (3.5-5.1) Chloride Level 103mmol/L (98-107) Carbon Dioxide Level 27mmol/L (21-32) Anion Gap 8 (6-14) Blood Urea Nitrogen 23mg/dL (7-20) Creatinine 1.1mg/dL (0.6-1.0) Estimated GFR (Cockcroft-Gault) 47.9 Glucose Level 173mg/dL (70-99) Calcium Level 8.2mg/dL (8.5-10.1) Magnesium Level 1.8mg/dL (1.8-2.4) Triglycerides Level 136mg/dL (0-150) Cholesterol Level 143mg/dL (0-200) LDL Cholesterol, Calculated 63mg/dL (0-100) VLDL Cholesterol, Calculated 27mg/dL (0-40) HDL Cholesterol 53mg/dL (40-60) Cholesterol/HDL Ratio 2.7 Microbiology 12/07/16 Blood Culture - Preliminary, Resulted NO GROWTH AFTER 3 DAYS Medications Current Medications Albuterol/ Ipratropium 3 ml 3 ml 1X ONCE NEB Last administered on 12/07/16t 18: 26; Start 12/07/16 at 18:30; Stop 12/07/16 at 18:31; Status DC Piperacillin Sod/ Tazobactam Sod/ Sodium Chloride (Zosyn/Iv Sodium Chloride 0.9 % 100ml) 100 ml @ 200 mls/hr Q6HRS IV ; Start 12/08/16 at 00:00; Status UNV Vancomycin HCl (Vanco Per Pharmacy) 1 each PRN DAILY PRN MC SEE COMMENTS Last administered on 12/09/16 22:07; Start 12/07/16 at 20:00; Stop 12/10/16 at 13:08; Status DC Heparin Sodium (Porcine) 3600 unit 3,600 unit 1X ONCE IV Last administered on 12/07/16 20:17; Start 12/07/16 at 20:30; Stop 12/07/16 at 20:31; Status DC Heparin Sodium/ Dextrose 500 ml @ 0 mls/hr CONT PRN IV SEE I/O RECORD Last administered on 12/11/16 05:43; Start 12/07/16 at 20:00 Heparin Sodium (Porcine) 1500 unit 1,500 unit PRN Q6HRS PRN IV FOR UFH LEVEL LESS THAN 0.2; Start 12/07/16 at 20:00 Vancomycin HCl/ Sodium Chloride (Iv Sodium Chloride 0.9% 500ml Bag) 500 ml @ 250 mls/hr 1X ONCE IV Last administered on 12/07/16 20:30; Start 12/07/16 at 20 :30; Stop 12/07/16 at 22:29; Status DC Furosemide 20 mg 20 mg 1X ONCE IVP Last administered on 12/07/16 22:03; Start 12/07/16 at 20:45; Stop 12/07/16 at 20:46; Status DC Piperacillin Sod/ Tazobactam Sod 3.375 gm/Sodium Chloride 50 ml @ 100 mls/hr Q6HRS IV Last administered on 12/11/16 05:08; Start 12/07/16 at 23:00 Vancomycin HCl/ Sodium Chloride (Iv Sodium Chloride 0.9% 250ml) 250 ml @ 250 mls/hr Q24H IV Last administered on 12/09/16 22:50; Start 12/08/16 at 20:00; Stop 12/10/16 at 13:06; Status DC Vancomycin HCl 1 each 1X ONCE MC Last administered on 12/09/16 19:30; Start at 19:30; Stop 12/09/16 at 19:31; Status DC Ondansetron HCl (Zofran) 4 mg PRN Q8HRS PRN IV NAUSEA/VOMITING Last administered on 12/08/16 02:44; Start 12/07/16 at 22:15; Stop 12/08/16 at 22:14; Status DC Acetaminophen (Tylenol) 650 mg PRN Q4HRS PRN PO FEVER; Start 12/07/16 at 22:15; Stop 12/08/16 at 22:14; Status DC Nitroglycerin (Nitrostat) 0.4 mg PRN Q5MIN PRN SL CHEST PAIN; Start 12/07/16 at 22:15; Stop 12/08/16 at 22:14; Status DC Albuterol/ Ipratropium (Duoneb) 3 ml RTQID NEB Last administered on 12/09/16 11 :43; Start 12/08/16 at 08:00; Stop 12/09/16 at 07:59; Status DC Methylprednisolone Sodium Succinate (Solu-Medrol 40mg Vial) 40 mg Q8HRS IV ; Start 12/08/16 at 06:00; Stop 12/08/16 at 06:00; Status DC Oseltamivir Phosphate (Tamiflu) 75 mg BID PO Last administered on 12/11/16 10: 08; Start 12/08/16 at 09:00; Stop 12/12/16 at 23:59 Oseltamivir Phosphate (Tamiflu) 75 mg 1X ONCE PO Last administered on 00:33; Start 12/07/16 at 23:30; Stop 12/07/16 at 23:31; Status DC Atorvastatin Calcium (Lipitor) 20 mg QHS PO Last administered on 12/10/16 20: 36; Start 12/08/16 at 21:00 Clopidogrel Bisulfate (Plavix) 75 mg DAILY PO Last administered on 12/11/16 10 :03; Start 12/08/16 at 09:00 Hydroxychloroquine Sulfate (Plaquenil) 200 mg BID PO Last administered on 10:03; Start 12/08/16 at 09:00 Ibuprofen (Motrin) 200 mg PRN Q6HRS PRN PO INFLAMMATION; Start 12/08/16 at 06:00 ; Stop 12/09/16 at 15:16; Status DC Lisinopril (Prinivil) 10 mg DAILY PO Last administered on 12/09/16 09:32; Start 12/08/16 at 09:00; Stop 12/09/16 at 15:16; Status DC Loperamide HCl (Imodium) 2 mg PRN Q4HRS PRN PO DIARRHEA; Start 12/08/16 at 00:15 Losartan Potassium (Cozaar) 50 mg DAILY PO Last administered on 12/11/16 10:04 ; Start 12/08/16 at 09:00 Promethazine HCl (Phenergan) 12.5 mg PRN Q6HRS PRN PO NAUSEA/VOMITING; Start at 00:15 Pantoprazole Sodium (Protonix) 40 mg DAILYAC PO Last administered on 12/11/16 10:04; Start 12/08/16 at 07:30 Furosemide (Lasix) 20 mg DAILY PO Last administered on 12/11/16 10:03; Start 12/08/16 at 09:00 Info (Anti-Coagulation Monitoring By Pharmacy) 1 each PRN DAILY PRN MC SEE COMMENTS Last administered on 12/09/16 15:36; Start 12/08/16 at 09:30 Potassium Chloride (Klor-Con) 40 meq 1X ONCE PO Last administered on 12/08/16 13:15; Start 12/08/16 at 12:30; Stop 12/08/16 at 12:31; Status DC Methylprednisolone Sodium Succinate (Solu-Medrol 125mg Vial) 125 mg DAILY IV Last administered on 12/10/16 09:22; Start 12/08/16 at 13:30; Stop 12/10/16 at 13:06; Status DC Folic Acid (Folic Acid) 1 mg DAILY PO Last administered on 12/11/16 10:03; Start 12/09/16 at 09:00 Leflunomide (Arava) 10 mg DAILY PO Last administered on 12/11/16 10:04; Start 12/09/16 at 09:00 Levofloxacin (Levaquin) 250 mg DAILY PO Last administered on 12/11/16 10:04; Start 12/09/16 at 09:00 Prednisone (Prednisone) 10 mg DAILY PO Last administered on 12/09/16 09:34; Start 12/09/16 at 09:00; Stop 12/09/16 at 15:26; Status DC Sennosides (Senna) 8.6 mg DAILY PO Last administered on 12/11/16 10:04; Start 12/09/16 at 09:00 Tramadol HCl (Ultram) 50 mg PRN Q6HRS PO ; Start 12/08/16 at 15:00; Stop at 00:47; Status DC Albuterol Sulfate (Ventolin Neb Soln) 2.5 mg PRN Q6HRS PRN NEB SHORTNESS OF BREATH Last administered on 12/09/16 19:25; Start 12/08/16 at 15:00 Meloxicam (Mobic) 15 mg DAILY PO Last administered on 12/09/16 09:33; Start 12/09/16 at 09:00; Stop 12/09/16 at 15:16; Status DC Non-Formulary Medication 1 tab BID PO ; Start 12/08/16 at 21:00; Stop 12/08/16 at 21:00; Status DC Tramadol HCl (Ultram) 50 mg PRN Q6HRS PRN PO MODERATE PAIN Last administered on 12/09/16 00:49; Start 12/09/16 at 00:47 Furosemide (Lasix) 20 mg 1X PRN PRN IV Blood transfusion; Start 12/09/16 at 12: 30; Stop 12/10/16 at 12:29; Status DC Hydralazine HCl (Apresoline) 10 mg PRN Q4HRS PRN IVP ELEVATED BP, SEE COMMENTS ; Start 12/09/16 at 15:15 Prednisone (Prednisone) 20 mg DAILY PO Last administered on 12/11/16 10:03; Start 12/11/16 at 09:00 Metoprolol Succinate (Toprol Xl) 12.5 mg DAILYWSUP PO Last administered on 12/10 18:29; Start 12/10/16 at 17:00 Nystatin 1 ronnie 1 ronnie BID TP Last administered on 12/11/16 10:05; Start at 15:30 Magnesium Sulfate/ Dextrose (Magnesium Sulfate PREMIX 2GM) 50 ml @ 25 mls/hr 1X ONCE IV ; Start 12/11/16 at 11:00; Stop 12/11/16 at 12:59 Potassium Chloride (Klor-Con) 40 meq BID PO ; Start 12/11/16 at 11:00; Stop 10/17 at 23:55 Active Scripts Active Levaquin (Levofloxacin) 250 Mg Tablet 250 Mg PO DAILY Reported Senna Laxative (Sennosides) 8.6 Mg Tablet 8.6 Mg PO Tramadol Hcl 50 Mg Tablet 1 Tab PO PRN Q6HRS Proair Hfa Inhaler (Albuterol Sulfate) 8.5 Gm Hfa.aer.ad 1 Puff INH PRN Q6HRS PRN Meloxicam 15 Mg Tablet 1 Tab PO DAILY Prednisone 10 Mg Tablet 10 Mg PO DAILY Leflunomide 10 Mg Tablet 10 Mg PO Folic Acid 1 Mg Tablet 1 Tab PO DAILY Loperamide (Loperamide Hcl) 2 Mg Capsule 2 Mg PO PRN Q4HRS PRN Promethazine Hcl 12.5 Mg Tablet 12.5 Mg PO Q6H PRN Atorvastatin Calcium 20 Mg Tablet 20 Mg PO DAILY Clopidogrel (Clopidogrel Bisulfate) 75 Mg Tablet 75 Mg PO DAILY Losartan Potassium 50 Mg Tablet 50 Mg PO DAILY Ibuprofen 200 Mg Tablet 200 Mg PO Q6HRS PRN Nabumetone 500 Mg Tablet 1 Tab PO BID Lisinopril 10 Mg Tablet 10 Mg PO DAILY Omeprazole 40 Mg Capsule.dr 40 Mg PO DAILY Hydroxychloroquine Sulfate 200 Mg Tablet 1 Tab PO BID Vitals/I & O Vital Sign - Last 24 Hours 12/10/16 12/10/16 12/10/16 12/10/16 11:39 15:00 18:29 19:09 Temp 97.8 97.8 97.8 97.8 Pulse 76 76 76 Resp 18 24 B/P 144/77 154/86 154/86 Pulse Ox 93 95 O2 Delivery Room Air Nasal Cannula Room Air O2 Flow Rate 2.0 12/10/16 12/10/16 12/11/16 12/11/16 19:19 22:46 02:49 07:50 Temp 98.5 97.8 97.4 97.9 98.5 97.8 97.4 97.9 Pulse 83 77 66 74 Resp 20 20 18 19 B/P 137/85 147/82 142/82 143/78 Pulse Ox 95 97 96 95 O2 Delivery Room Air Room Air Room Air Room Air 12/11/16 10:04 Pulse 74 B/P 143/78 Intake and Output 12/10/16 12/10/16 12/11/16 15:00 23:00 07:00 Intake Total 220 ml 220 ml 0 ml Balance 220 ml 220 ml 0 ml KEYONA OCONNOR MD Dec 11, 2016 11:06
--- NOTE | 2016-12-11 12:03 | PDOC ---
PULMONARY PROGRESS NOTES Subjective no soa Vitals Vital Signs Date Time Temp Pulse Resp B/P Pulse Ox O2 Delivery O2 Flow Rate FiO2 12/11/16 11:04 97.8 81 23 147/81 92 Room Air 97.8 12/10/16 15:00 2.0 General: Alert, No acute distress Lungs: Crackles (bases) Cardiovascular: S1 Abdomen: Soft Neuro Exam: Alert Extremities: No Edema Skin: Warm Labs Laboratory Tests Test 12/09/16 19:35 12/10/16 04:14 12/11/16 03:45 Vancomycin Level Trough 12.2mcg/mL (10.0-20.0) Vancomycin Last Dose Date 12/08/16 Vancomycin Last Dose Time 2000 White Blood Count 5.4x10^3/uL (4.0-11.0) 5.0x10^3/uL (4.0-11.0) Red Blood Count 3.24x10^6/uL (3.50-5.40) 3.53x10^6/uL (3.50-5.40) Hemoglobin 8.7g/dL (12.0-15.5) 9.5g/dL (12.0-15.5) Hematocrit 26.2% (36.0-47.0) 28.1% (36.0-47.0) Mean Corpuscular Volume 81fL (79-100) 80fL (79-100) Mean Corpuscular Hemoglobin 27pg (25-35) 27pg (25-35) Mean Corpuscular Hemoglobin Concent 33g/dL (31-37) 34g/dL (31-37) Red Cell Distribution Width 17.7% (11.5-14.5) 17.6% (11.5-14.5) Platelet Count 132x10^3/uL (140-400) 174x10^3/uL (140-400) Neutrophils (%) (Auto) 89% (31-73) 84% (31-73) Lymphocytes (%) (Auto) 3% (24-48) 5% (24-48) Monocytes (%) (Auto) 9% (0-9) 11% (0-9) Eosinophils (%) (Auto) 0% (0-3) 0% (0-3) Basophils (%) (Auto) 0% (0-3) 0% (0-3) Neutrophils # (Auto) 4.8x10^3uL (1.8-7.7) 4.2x10^3uL (1.8-7.7) Lymphocytes # (Auto) 0.1x10^3/uL (1.0-4.8) 0.3x10^3/uL (1.0-4.8) Monocytes # (Auto) 0.5x10^3/uL (0.0-1.1) 0.5x10^3/uL (0.0-1.1) Eosinophils # (Auto) 0.0x10^3/uL (0.0-0.7) 0.0x10^3/uL (0.0-0.7) Basophils # (Auto) 0.0x10^3/uL (0.0-0.2) 0.0x10^3/uL (0.0-0.2) Heparin Anti-Xa Act, Unfractionated 0.36IU/mL (0.30-0.70) 0.29IU/mL (0.30-0.70) Sodium Level 140mmol/L (136-145) 138mmol/L (136-145) Potassium Level 3.5mmol/L (3.5-5.1) 3.1mmol/L (3.5-5.1) Chloride Level 105mmol/L (98-107) 103mmol/L (98-107) Carbon Dioxide Level 25mmol/L (21-32) 27mmol/L (21-32) Anion Gap 10 (6-14) 8 (6-14) Blood Urea Nitrogen 22mg/dL (7-20) 23mg/dL (7-20) Creatinine 1.0mg/dL (0.6-1.0) 1.1mg/dL (0.6-1.0) Estimated GFR (Cockcroft-Gault) 53.5 47.9 Glucose Level 262mg/dL (70-99) 173mg/dL (70-99) Calcium Level 8.1mg/dL (8.5-10.1) 8.2mg/dL (8.5-10.1) Magnesium Level 1.8mg/dL (1.8-2.4) Triglycerides Level 136mg/dL (0-150) Cholesterol Level 143mg/dL (0-200) LDL Cholesterol, Calculated 63mg/dL (0-100) VLDL Cholesterol, Calculated 27mg/dL (0-40) HDL Cholesterol 53mg/dL (40-60) Cholesterol/HDL Ratio 2.7 Laboratory Tests Test 12/11/16 03:45 White Blood Count 5.0x10^3/uL (4.0-11.0) Red Blood Count 3.53x10^6/uL (3.50-5.40) Hemoglobin 9.5g/dL (12.0-15.5) Hematocrit 28.1% (36.0-47.0) Mean Corpuscular Volume 80fL (79-100) Mean Corpuscular Hemoglobin 27pg (25-35) Mean Corpuscular Hemoglobin Concent 34g/dL (31-37) Red Cell Distribution Width 17.6% (11.5-14.5) Platelet Count 174x10^3/uL (140-400) Neutrophils (%) (Auto) 84% (31-73) Lymphocytes (%) (Auto) 5% (24-48) Monocytes (%) (Auto) 11% (0-9) Eosinophils (%) (Auto) 0% (0-3) Basophils (%) (Auto) 0% (0-3) Neutrophils # (Auto) 4.2x10^3uL (1.8-7.7) Lymphocytes # (Auto) 0.3x10^3/uL (1.0-4.8) Monocytes # (Auto) 0.5x10^3/uL (0.0-1.1) Eosinophils # (Auto) 0.0x10^3/uL (0.0-0.7) Basophils # (Auto) 0.0x10^3/uL (0.0-0.2) Heparin Anti-Xa Act, Unfractionated 0.29IU/mL (0.30-0.70) Sodium Level 138mmol/L (136-145) Potassium Level 3.1mmol/L (3.5-5.1) Chloride Level 103mmol/L (98-107) Carbon Dioxide Level 27mmol/L (21-32) Anion Gap 8 (6-14) Blood Urea Nitrogen 23mg/dL (7-20) Creatinine 1.1mg/dL (0.6-1.0) Estimated GFR (Cockcroft-Gault) 47.9 Glucose Level 173mg/dL (70-99) Calcium Level 8.2mg/dL (8.5-10.1) Magnesium Level 1.8mg/dL (1.8-2.4) Triglycerides Level 136mg/dL (0-150) Cholesterol Level 143mg/dL (0-200) LDL Cholesterol, Calculated 63mg/dL (0-100) VLDL Cholesterol, Calculated 27mg/dL (0-40) HDL Cholesterol 53mg/dL (40-60) Cholesterol/HDL Ratio 2.7 Medications Active Scripts Medications Dose Route/Sig Days Date Category Senna Laxative (Sennosides) 8.6 Mg Tablet 8.6 Mg PO 12/08/16 Reported Tramadol Hcl 50 Mg Tablet 1 Tab PO PRN Q6HRS 12/08/16 Reported Proair Hfa Inhaler (Albuterol Sulfate) 8.5 Gm Hfa.aer.ad 1 Puff INH PRN Q6HRS PRN 12/08/16 Reported Meloxicam 15 Mg Tablet 1 Tab PO DAILY 12/08/16 Reported Prednisone 10 Mg Tablet 10 Mg PO DAILY 12/08/16 Reported Leflunomide 10 Mg Tablet 10 Mg PO 12/08/16 Reported Folic Acid 1 Mg Tablet 1 Tab PO DAILY 12/08/16 Reported Levaquin (Levofloxacin) 250 Mg Tablet 250 Mg PO DAILY 06/29/15 Rx Loperamide (Loperamide Hcl) 2 Mg Capsule 2 Mg PO PRN Q4HRS PRN 06/26/15 Reported Promethazine Hcl 12.5 Mg Tablet 12.5 Mg PO Q6H PRN 06/26/15 Reported Atorvastatin Calcium 20 Mg Tablet 20 Mg PO DAILY 06/26/15 Reported Clopidogrel (Clopidogrel Bisulfate) 75 Mg Tablet 75 Mg PO DAILY 06/26/15 Reported Losartan Potassium 50 Mg Tablet 50 Mg PO DAILY 06/26/15 Reported Ibuprofen 200 Mg Tablet 200 Mg PO Q6HRS PRN 06/26/15 Reported Nabumetone 500 Mg Tablet 1 Tab PO BID 06/26/15 Reported Lisinopril 10 Mg Tablet 10 Mg PO DAILY 06/26/15 Reported Omeprazole 40 Mg Capsule.dr 40 Mg PO DAILY 06/26/15 Reported Hydroxychloroquine Sulfate 200 Mg Tablet 1 Tab PO BID 06/26/15 Reported Impression . 1. Acute respiratory failure secondary to influenza and underlying pulmonary fibrosis 2. Elevated troponin level, Cardiology following 3. Pulmonary fibrosis with acute exacerbation. 4. Secondary pulmonary Hypertension. 5. difficult to rule out pneumonia but clinically less likely 6. 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 1. We will continue oxygen supplementation. 2. D/C Zosyn. change to PO Augmentin. BC negative. off vanc 3. Cardiology recommendations. 4. PO steroids for fibrosis 5. Nebulized treatments. 6. DVT and GI prophylaxis. 7. ok pulmonary [facility] for d/c d/w PCP IKE ROMANO MD Dec 11, 2016 12:03
[2016-12-11] MEDS: AMOXICILLIN/K CLAV 500/125MG TABLET. PO SCH ×2 (13:31→21:02)
[2016-12-11] MEDS: POTASSIUM CHLORIDE 20 MEQ TABLET.ER. PO SCH ×2 (13:31→21:03)
[2016-12-11] MEDS: ASPIRIN ENTERIC COATED 81 MG TABLET.DR. PO SCH (13:35)
[2016-12-11] MEDS: METOPROLOL SUCC 24HR ER 25 MG TAB.ER.24H. PO SCH (17:00)
[2016-12-11] MEDS: ATORVASTATIN CALCIUM 20 MG TABLET PO SCH (21:02)
[2016-12-11] MEDS: TRAMADOL 50 MG TABLET. PO PRN (21:04)
[2016-12-11] MEDS: PROMETHAZINE 12.5 MG TABLET. PO PRN (23:29)
[2016-12-12 02:50] VITALS: BP 139/79
[2016-12-12 07:00] VITALS: BP 142/93
[2016-12-12] MEDS: NYSTATIN TOPICAL POWDER 15GM BOTTLE. TP SCH ×2 (09:00→21:00)
[2016-12-12] MEDS: SENNOSIDES 8.6 MG TABLET PO SCH (09:00)
[2016-12-12] MEDS: OSELTAMIVIR 75 MG CAPSULE PO SCH ×2 (09:01→21:29)
[2016-12-12] MEDS: LOSARTAN POTASSIUM 50 MG TABLET. PO SCH (09:01)
[2016-12-12] MEDS: ASPIRIN ENTERIC COATED 81 MG TABLET.DR. PO SCH (09:01)
[2016-12-12] MEDS: HYDROXYCHLOROQUINE 200 MG TABLET PO SCH ×2 (09:01→21:29)
[2016-12-12] MEDS: PANTOPRAZOLE 40 MG TABLET. PO SCH (09:01)
[2016-12-12] MEDS: LEFLUNOMIDE 10 MG TABLET. PO SCH (09:02)
[2016-12-12] MEDS: PREDNISONE 20 MG TABLET PO SCH (09:02)
[2016-12-12] MEDS: CLOPIDOGREL BISULFATE 75 MG TABLET PO SCH (09:02)
[2016-12-12] MEDS: FUROSEMIDE 20 MG TABLET PO SCH (09:02)
[2016-12-12] MEDS: FOLIC ACID 1 MG TABLET PO SCH (09:02)
[2016-12-12] MEDS: AMOXICILLIN/K CLAV 500/125MG TABLET. PO SCH ×2 (09:02→21:29)
[2016-12-12 09:45] LABS: BASO % 0 % (0-3); EOS % 0 % (0-3); HEMATOCRIT 34.4 % (36.0-47.0); HEMOGLOBIN 11.3 g/dL (12.0-15.5); LYMPH # 0.5 x10^3/uL (1.0-4.8); LYMPH % 9 % (24-48); MEAN CORPUSCULAR HEMOGLOBIN 27 pg (25-35); MEAN CORPUSCULAR HGB CONC 33 g/dL (31-37); MEAN CORPUSCULAR VOLUME 81 fL (79-100); MONO % 12 % (0-9); NEUT % 80 % (31-73); PLATELET COUNT 230 x10^3/uL (140-400); RED BLOOD COUNT 4.24 x10^6/uL (3.50-5.40); RED CELL DISTRIBUTION WIDTH 18.2 % (11.5-14.5); WHITE BLOOD COUNT 5.6 x10^3/uL (4.0-11.0)
[2016-12-12 09:50] LABS: CALCIUM 8.4 mg/dL (8.5-10.1); GFR 53.5
[2016-12-12 10:31] VITALS: BP 139/83
[2016-12-12] MEDS: PROMETHAZINE 12.5 MG TABLET. PO PRN (10:57)
--- NOTE | 2016-12-12 11:34 | PDOC ---
CARDIO Progress Notes Date and Time Date of Service 12/12/2016 Time of Evaluation 1133 Subjective Subjective: No Chest Pain, No Palpitations, No Dizziness, Other (+ nausea; retching) Vitals Vitals Vital Signs Date Time Temp Pulse Resp B/P Pulse Ox O2 Delivery O2 Flow Rate FiO2 12/12/16 10:31 98.8 75 18 139/83 94 Room Air 98.8 Weight Weight [ ] Input and Output Intake and Output Intake and Output 12/12/16 07:00 Intake Total 1250 ml Output Total 7 ml Balance 1243 ml Intake Oral 1250 ml Urine/Stool Mix 7 ml # Voids 1 Laboratory Labs Laboratory Tests Test 12/11/16 11:50 12/12/16 09:30 Heparin Anti-Xa Act, Unfractionated 0.48IU/mL (0.30-0.70) White Blood Count 5.6x10^3/uL (4.0-11.0) Red Blood Count 4.24x10^6/uL (3.50-5.40) Hemoglobin 11.3g/dL (12.0-15.5) Hematocrit 34.4% (36.0-47.0) Mean Corpuscular Volume 81fL (79-100) Mean Corpuscular Hemoglobin 27pg (25-35) Mean Corpuscular Hemoglobin Concent 33g/dL (31-37) Red Cell Distribution Width 18.2% (11.5-14.5) Platelet Count 230x10^3/uL (140-400) Neutrophils (%) (Auto) 80% (31-73) Lymphocytes (%) (Auto) 9% (24-48) Monocytes (%) (Auto) 12% (0-9) Eosinophils (%) (Auto) 0% (0-3) Basophils (%) (Auto) 0% (0-3) Neutrophils # (Auto) 4.5x10^3uL (1.8-7.7) Lymphocytes # (Auto) 0.5x10^3/uL (1.0-4.8) Monocytes # (Auto) 0.6x10^3/uL (0.0-1.1) Eosinophils # (Auto) 0.0x10^3/uL (0.0-0.7) Basophils # (Auto) 0.0x10^3/uL (0.0-0.2) Sodium Level 137mmol/L (136-145) Potassium Level 4.0mmol/L (3.5-5.1) Chloride Level 105mmol/L (98-107) Carbon Dioxide Level 28mmol/L (21-32) Anion Gap 4 (6-14) Blood Urea Nitrogen 22mg/dL (7-20) Creatinine 1.0mg/dL (0.6-1.0) Estimated GFR (Cockcroft-Gault) 53.5 Glucose Level 107mg/dL (70-99) Calcium Level 8.4mg/dL (8.5-10.1) Microbiology Micro Microbiology 12/07/16 Blood Culture - Preliminary, Resulted NO GROWTH AFTER 4 DAYS Physical Exam HEENT: Neck Supple W Full Motion Chest: Symmetric LUNGS: Other (coarse, basilar crackles) Heart: S1S2, RRR, other (tele: SR) Abdomen: Soft N/T Extremities: No Edema Neurology: alert, oriented, follow commands Assessment Assessment 1. Acute respiratory failure with ? chronic known history of pulm fibrosis influenza positive tx per PULM 2. NSTEMI, likely demand mediated troponin peaked @ 2.198 echo: LVEF depressed @ 35% with global hypokinesis and septal dyskinesis - ? new echo @ [facility] 02/09/2015 with LVEF of 65%; mild DD; dilated LA; no ASD/PFO; no significant valvular disease event monitor done for TIA with PAT ~ 2 seconds continue beta-blockers and ARB continue DAPT currently not a candidate for aggressive evaluation - discussed with family and they prefer medical management at this time will plan to see in the office in 4 - 6 weeks 3. Acute systolic and diastolic heart failure now on oral diuretics depressed LV function adding BB for HTN control 4. Hypertension BP stable 5. History of a CVA. will continue Plavix due to CVA history 6. OA medications adjusted holding NSAIDs due to use of DAPT and steroids Will likely need SNF at discharge Will follow at a distance Please contact for further assistance TAMARA GALLEGOS APRN Dec 12, 2016 11:34
--- NOTE | 2016-12-12 12:18 | PDOC ---
PROGRESS NOTES Chief Complaint Chief Complaint cc: sob A/P Respiratory failure - influenza, IPF and possible pneumonia and congestive heart failure NSTEMI Anemia acute on Chronic heart failure HTN HLP Mild hyperglycemia due to steroids. Anemia s/p 1 unit of PRBC Plan PO augment steroids periodic nebulization SNU placement labs reviewed, d/w daughter at bedside Tamiflu Physically weak PT/OT History of Present Illness History of Present Illness sob better no chest pain no fevers no chills. Vitals Vitals Vital Signs Date Time Temp Pulse Resp B/P Pulse Ox O2 Delivery O2 Flow Rate FiO2 12/12/16 10:31 98.8 75 18 139/83 94 Room Air 98.8 Physical Exam General: Alert, Oriented X3, mild distress Heart: Regular rate, Normal S1, Other Lungs: Clear Abdomen: Normal bowel sounds, Soft Extremities: No clubbing, No cyanosis Labs LABS Laboratory Tests Test 12/12/16 09:30 White Blood Count 5.6x10^3/uL (4.0-11.0) Red Blood Count 4.24x10^6/uL (3.50-5.40) Hemoglobin 11.3g/dL (12.0-15.5) Hematocrit 34.4% (36.0-47.0) Mean Corpuscular Volume 81fL (79-100) Mean Corpuscular Hemoglobin 27pg (25-35) Mean Corpuscular Hemoglobin Concent 33g/dL (31-37) Red Cell Distribution Width 18.2% (11.5-14.5) Platelet Count 230x10^3/uL (140-400) Neutrophils (%) (Auto) 80% (31-73) Lymphocytes (%) (Auto) 9% (24-48) Monocytes (%) (Auto) 12% (0-9) Eosinophils (%) (Auto) 0% (0-3) Basophils (%) (Auto) 0% (0-3) Neutrophils # (Auto) 4.5x10^3uL (1.8-7.7) Lymphocytes # (Auto) 0.5x10^3/uL (1.0-4.8) Monocytes # (Auto) 0.6x10^3/uL (0.0-1.1) Eosinophils # (Auto) 0.0x10^3/uL (0.0-0.7) Basophils # (Auto) 0.0x10^3/uL (0.0-0.2) Sodium Level 137mmol/L (136-145) Potassium Level 4.0mmol/L (3.5-5.1) Chloride Level 105mmol/L (98-107) Carbon Dioxide Level 28mmol/L (21-32) Anion Gap 4 (6-14) Blood Urea Nitrogen 22mg/dL (7-20) Creatinine 1.0mg/dL (0.6-1.0) Estimated GFR (Cockcroft-Gault) 53.5 Glucose Level 107mg/dL (70-99) Calcium Level 8.4mg/dL (8.5-10.1) Assessment and Plan Assessmemt and Plan Problems Medical Problems: (1) Elevated troponin Status: Acute (2) Idiopathic pulmonary fibrosis Status: Acute (3) Influenza Status: Acute (4) Non-STEMI (non-ST elevated myocardial infarction) Status: Acute Problems: Comment Review of Relevant I have reviewed the following items cony (where applicable) has been applied. Labs Laboratory Tests Test 12/11/16 03:45 12/11/16 11:50 12/12/16 09:30 White Blood Count 5.0x10^3/uL (4.0-11.0) 5.6x10^3/uL (4.0-11.0) Red Blood Count 3.53x10^6/uL (3.50-5.40) 4.24x10^6/uL (3.50-5.40) Hemoglobin 9.5g/dL (12.0-15.5) 11.3g/dL (12.0-15.5) Hematocrit 28.1% (36.0-47.0) 34.4% (36.0-47.0) Mean Corpuscular Volume 80fL (79-100) 81fL (79-100) Mean Corpuscular Hemoglobin 27pg (25-35) 27pg (25-35) Mean Corpuscular Hemoglobin Concent 34g/dL (31-37) 33g/dL (31-37) Red Cell Distribution Width 17.6% (11.5-14.5) 18.2% (11.5-14.5) Platelet Count 174x10^3/uL (140-400) 230x10^3/uL (140-400) Neutrophils (%) (Auto) 84% (31-73) 80% (31-73) Lymphocytes (%) (Auto) 5% (24-48) 9% (24-48) Monocytes (%) (Auto) 11% (0-9) 12% (0-9) Eosinophils (%) (Auto) 0% (0-3) 0% (0-3) Basophils (%) (Auto) 0% (0-3) 0% (0-3) Neutrophils # (Auto) 4.2x10^3uL (1.8-7.7) 4.5x10^3uL (1.8-7.7) Lymphocytes # (Auto) 0.3x10^3/uL (1.0-4.8) 0.5x10^3/uL (1.0-4.8) Monocytes # (Auto) 0.5x10^3/uL (0.0-1.1) 0.6x10^3/uL (0.0-1.1) Eosinophils # (Auto) 0.0x10^3/uL (0.0-0.7) 0.0x10^3/uL (0.0-0.7) Basophils # (Auto) 0.0x10^3/uL (0.0-0.2) 0.0x10^3/uL (0.0-0.2) Heparin Anti-Xa Act, Unfractionated 0.29IU/mL (0.30-0.70) 0.48IU/mL (0.30-0.70) Sodium Level 138mmol/L (136-145) 137mmol/L (136-145) Potassium Level 3.1mmol/L (3.5-5.1) 4.0mmol/L (3.5-5.1) Chloride Level 103mmol/L (98-107) 105mmol/L (98-107) Carbon Dioxide Level 27mmol/L (21-32) 28mmol/L (21-32) Anion Gap 8 (6-14) 4 (6-14) Blood Urea Nitrogen 23mg/dL (7-20) 22mg/dL (7-20) Creatinine 1.1mg/dL (0.6-1.0) 1.0mg/dL (0.6-1.0) Estimated GFR (Cockcroft-Gault) 47.9 53.5 Glucose Level 173mg/dL (70-99) 107mg/dL (70-99) Calcium Level 8.2mg/dL (8.5-10.1) 8.4mg/dL (8.5-10.1) Magnesium Level 1.8mg/dL (1.8-2.4) Triglycerides Level 136mg/dL (0-150) Cholesterol Level 143mg/dL (0-200) LDL Cholesterol, Calculated 63mg/dL (0-100) VLDL Cholesterol, Calculated 27mg/dL (0-40) HDL Cholesterol 53mg/dL (40-60) Cholesterol/HDL Ratio 2.7 Laboratory Tests Test 12/12/16 09:30 White Blood Count 5.6x10^3/uL (4.0-11.0) Red Blood Count 4.24x10^6/uL (3.50-5.40) Hemoglobin 11.3g/dL (12.0-15.5) Hematocrit 34.4% (36.0-47.0) Mean Corpuscular Volume 81fL (79-100) Mean Corpuscular Hemoglobin 27pg (25-35) Mean Corpuscular Hemoglobin Concent 33g/dL (31-37) Red Cell Distribution Width 18.2% (11.5-14.5) Platelet Count 230x10^3/uL (140-400) Neutrophils (%) (Auto) 80% (31-73) Lymphocytes (%) (Auto) 9% (24-48) Monocytes (%) (Auto) 12% (0-9) Eosinophils (%) (Auto) 0% (0-3) Basophils (%) (Auto) 0% (0-3) Neutrophils # (Auto) 4.5x10^3uL (1.8-7.7) Lymphocytes # (Auto) 0.5x10^3/uL (1.0-4.8) Monocytes # (Auto) 0.6x10^3/uL (0.0-1.1) Eosinophils # (Auto) 0.0x10^3/uL (0.0-0.7) Basophils # (Auto) 0.0x10^3/uL (0.0-0.2) Sodium Level 137mmol/L (136-145) Potassium Level 4.0mmol/L (3.5-5.1) Chloride Level 105mmol/L (98-107) Carbon Dioxide Level 28mmol/L (21-32) Anion Gap 4 (6-14) Blood Urea Nitrogen 22mg/dL (7-20) Creatinine 1.0mg/dL (0.6-1.0) Estimated GFR (Cockcroft-Gault) 53.5 Glucose Level 107mg/dL (70-99) Calcium Level 8.4mg/dL (8.5-10.1) Microbiology 12/07/16 Blood Culture - Preliminary, Resulted NO GROWTH AFTER 4 DAYS Medications Current Medications Albuterol/ Ipratropium 3 ml 3 ml 1X ONCE NEB Last administered on 12/07/16 18: 26; Start 12/07/16 at 18:30; Stop 12/07/16 at 18:31; Status DC Piperacillin Sod/ Tazobactam Sod/ Sodium Chloride (Zosyn/Iv Sodium Chloride 0.9 % 100ml) 100 ml @ 200 mls/hr Q6HRS IV ; Start 12/08/16 at 00:00; Status UNV Vancomycin HCl (Vanco Per Pharmacy) 1 each PRN DAILY PRN MC SEE COMMENTS Last administered on 12/09/16 22:07; Start 12/07/16 at 20:00; Stop 12/10/16 at 13:08; Status DC Heparin Sodium (Porcine) 3600 unit 3,600 unit 1X ONCE IV Last administered on 12/07/16 20:17; Start 12/07/16 at 20:30; Stop 12/07/16 at 20:31; Status DC Heparin Sodium/ Dextrose 500 ml @ 0 mls/hr CONT PRN IV SEE I/O RECORD Last administered on 12/11/16 05:43; Start 12/07/16 at 20:00; Stop 12/11/16 at 12:34 ; Status DC Heparin Sodium (Porcine) 1500 unit 1,500 unit PRN Q6HRS PRN IV FOR UFH LEVEL LESS THAN 0.2; Start 12/07/16 at 20:00; Stop 12/11/16 at 12:32; Status DC Vancomycin HCl/ Sodium Chloride (Iv Sodium Chloride 0.9% 500ml Bag) 500 ml @ 250 mls/hr 1X ONCE IV Last administered on 12/07/16 20:30; Start 12/07/16 at 20 :30; Stop 12/07/16 at 22:29; Status DC Furosemide 20 mg 20 mg 1X ONCE IVP Last administered on 12/07/16 22:03; Start 12/07/16 at 20:45; Stop 12/07/16 at 20:46; Status DC Piperacillin Sod/ Tazobactam Sod 3.375 gm/Sodium Chloride 50 ml @ 100 mls/hr Q6HRS IV Last administered on 12/11/16 05:08; Start 12/07/16 at 23:00; Stop 10/17 at 12:03; Status DC Vancomycin HCl/ Sodium Chloride (Iv Sodium Chloride 0.9% 250ml) 250 ml @ 250 mls/hr Q24H IV Last administered on 12/09/16 22:50; Start 12/08/16 at 20:00; Stop 12/10/16 at 13:06; Status DC Vancomycin HCl 1 each 1X ONCE MC Last administered on 12/09/16 19:30; Start at 19:30; Stop 12/09/16 at 19:31; Status DC Ondansetron HCl (Zofran) 4 mg PRN Q8HRS PRN IV NAUSEA/VOMITING Last administered on 12/08/16 02:44; Start 12/07/16 at 22:15; Stop 12/08/16 at 22:14; Status DC Acetaminophen (Tylenol) 650 mg PRN Q4HRS PRN PO FEVER; Start 12/07/16 at 22:15; Stop 12/08/16 at 22:14; Status DC Nitroglycerin (Nitrostat) 0.4 mg PRN Q5MIN PRN SL CHEST PAIN; Start 12/07/16 at 22:15; Stop 12/08/16 at 22:14; Status DC Albuterol/ Ipratropium (Duoneb) 3 ml RTQID NEB Last administered on 12/09/16 11 :43; Start 12/08/16 at 08:00; Stop 12/09/16 at 07:59; Status DC Methylprednisolone Sodium Succinate (Solu-Medrol 40mg Vial) 40 mg Q8HRS IV ; Start 12/08/16 at 06:00; Stop 12/08/16 at 06:00; Status DC Oseltamivir Phosphate (Tamiflu) 75 mg BID PO Last administered on 12/12/16 09: 01; Start 12/08/16 at 09:00; Stop 12/12/16 at 23:59 Oseltamivir Phosphate (Tamiflu) 75 mg 1X ONCE PO Last administered on 00:33; Start 12/07/16 at 23:30; Stop 12/07/16 at 23:31; Status DC Atorvastatin Calcium (Lipitor) 20 mg QHS PO Last administered on 12/11/16 21: 02; Start 12/08/16 at 21:00 Clopidogrel Bisulfate (Plavix) 75 mg DAILY PO Last administered on 12/12/16 09 :02; Start 12/08/16 at 09:00 Hydroxychloroquine Sulfate (Plaquenil) 200 mg BID PO Last administered on 09:01; Start 12/08/16 at 09:00 Ibuprofen (Motrin) 200 mg PRN Q6HRS PRN PO INFLAMMATION; Start 12/08/16 at 06:00 ; Stop 12/09/16 at 15:16; Status DC Lisinopril (Prinivil) 10 mg DAILY PO Last administered on 12/09/16 09:32; Start 12/08/16 at 09:00; Stop 12/09/16 at 15:16; Status DC Loperamide HCl (Imodium) 2 mg PRN Q4HRS PRN PO DIARRHEA; Start 12/08/16 at 00:15 Losartan Potassium (Cozaar) 50 mg DAILY PO Last administered on 12/12/16 09:01 ; Start 12/08/16 at 09:00 Promethazine HCl (Phenergan) 12.5 mg PRN Q6HRS PRN PO NAUSEA/VOMITING Last administered on 12/12/16 10:57; Start 12/08/16 at 00:15 Pantoprazole Sodium (Protonix) 40 mg DAILYAC PO Last administered on 12/12/16 09:01; Start 12/08/16 at 07:30 Furosemide (Lasix) 20 mg DAILY PO Last administered on 12/12/16 09:02; Start 12/08/16 at 09:00 Info (Anti-Coagulation Monitoring By Pharmacy) 1 each PRN DAILY PRN MC SEE COMMENTS Last administered on 12/09/16 15:36; Start 12/08/16 at 09:30; Stop 12/11 at 12:35; Status DC Potassium Chloride (Klor-Con) 40 meq 1X ONCE PO Last administered on 12/08/16 13:15; Start 12/08/16 at 12:30; Stop 12/08/16 at 12:31; Status DC Methylprednisolone Sodium Succinate (Solu-Medrol 125mg Vial) 125 mg DAILY IV Last administered on 12/10/16 09:22; Start 12/08/16 at 13:30; Stop 12/10/16 at 13:06; Status DC Folic Acid (Folic Acid) 1 mg DAILY PO Last administered on 12/12/16 09:02; Start 12/09/16 at 09:00 Leflunomide (Arava) 10 mg DAILY PO Last administered on 12/12/16 09:02; Start 12/09/16 at 09:00 Levofloxacin (Levaquin) 250 mg DAILY PO Last administered on 12/11/16 10:04; Start 12/09/16 at 09:00; Stop 12/11/16 at 16:09; Status DC Prednisone (Prednisone) 10 mg DAILY PO Last administered on 12/09/16 09:34; Start 12/09/16 at 09:00; Stop 12/09/16 at 15:26; Status DC Sennosides (Senna) 8.6 mg DAILY PO Last administered on 12/11/16 10:04; Start 12/09/16 at 09:00 Tramadol HCl (Ultram) 50 mg PRN Q6HRS PO ; Start 12/08/16 at 15:00; Stop at 00:47; Status DC Albuterol Sulfate (Ventolin Neb Soln) 2.5 mg PRN Q6HRS PRN NEB SHORTNESS OF BREATH Last administered on 12/09/16 19:25; Start 12/08/16 at 15:00 Meloxicam (Mobic) 15 mg DAILY PO Last administered on 12/09/16 09:33; Start 12/09/16 at 09:00; Stop 12/09/16 at 15:16; Status DC Non-Formulary Medication 1 tab BID PO ; Start 12/08/16 at 21:00; Stop 12/08/16 at 21:00; Status DC Tramadol HCl (Ultram) 50 mg PRN Q6HRS PRN PO MODERATE PAIN Last administered on 12/11/16 21:04; Start 12/09/16 at 00:47 Furosemide (Lasix) 20 mg 1X PRN PRN IV Blood transfusion; Start 12/09/16 at 12: 30; Stop 12/10/16 at 12:29; Status DC Hydralazine HCl (Apresoline) 10 mg PRN Q4HRS PRN IVP ELEVATED BP, SEE COMMENTS ; Start 12/09/16 at 15:15 Prednisone (Prednisone) 20 mg DAILY PO Last administered on 12/12/16 09:02; Start 12/11/16 at 09:00 Metoprolol Succinate (Toprol Xl) 12.5 mg DAILYWSUP PO Last administered on 12/10 18:29; Start 12/10/16 at 17:00; Stop 12/11/16 at 14:38; Status DC Nystatin 1 ronnie 1 ronnie BID TP Last administered on 12/12/16 09:00; Start at 15:30 Magnesium Sulfate/ Dextrose (Magnesium Sulfate PREMIX 2GM) 50 ml @ 25 mls/hr 1X ONCE IV Last administered on 12/11/16 13:31; Start 12/11/16 at 11:00; Stop 12/11/16 at 12:59; Status DC Potassium Chloride (Klor-Con) 40 meq BID PO Last administered on 12/11/16 21: 03; Start 12/11/16 at 11:00; Stop 12/11/16 at 23:55; Status DC Amoxicillin/ Clavulanate Potassium (Augmentin 500/ 125mg) 1 tab BID PO Last administered on 12/12/16 09:02; Start 12/11/16 at 12:00 Aspirin (Ecotrin) 81 mg DAILYWBKFT PO Last administered on 12/12/16 09:01; Start 12/11/16 at 12:30 Metoprolol Succinate (Toprol Xl) 25 mg DAILYWSUP PO Last administered on 17:00; Start 12/11/16 at 17:00 Active Scripts Active Levaquin (Levofloxacin) 250 Mg Tablet 250 Mg PO DAILY Reported Senna Laxative (Sennosides) 8.6 Mg Tablet 8.6 Mg PO Tramadol Hcl 50 Mg Tablet 1 Tab PO PRN Q6HRS Proair Hfa Inhaler (Albuterol Sulfate) 8.5 Gm Hfa.aer.ad 1 Puff INH PRN Q6HRS PRN Meloxicam 15 Mg Tablet 1 Tab PO DAILY Prednisone 10 Mg Tablet 10 Mg PO DAILY Leflunomide 10 Mg Tablet 10 Mg PO Folic Acid 1 Mg Tablet 1 Tab PO DAILY Loperamide (Loperamide Hcl) 2 Mg Capsule 2 Mg PO PRN Q4HRS PRN Promethazine Hcl 12.5 Mg Tablet 12.5 Mg PO Q6H PRN Atorvastatin Calcium 20 Mg Tablet 20 Mg PO DAILY Clopidogrel (Clopidogrel Bisulfate) 75 Mg Tablet 75 Mg PO DAILY Losartan Potassium 50 Mg Tablet 50 Mg PO DAILY Ibuprofen 200 Mg Tablet 200 Mg PO Q6HRS PRN Nabumetone 500 Mg Tablet 1 Tab PO BID Lisinopril 10 Mg Tablet 10 Mg PO DAILY Omeprazole 40 Mg Capsule.dr 40 Mg PO DAILY Hydroxychloroquine Sulfate 200 Mg Tablet 1 Tab PO BID Vitals/I & O Vital Sign - Last 24 Hours 12/11/16 12/11/16 12/11/16 12/11/16 15:34 17:00 19:45 19:50 Temp 97.4 97.1 97.4 97.1 Pulse 87 87 72 Resp 22 24 B/P 160/89 160/89 128/64 Pulse Ox 91 94 O2 Delivery Room Air Room Air Room Air 12/11/16 12/11/16 12/11/16 12/12/16 21:04 22:04 23:33 02:50 Temp 97.4 97.5 97.4 97.5 Pulse 77 67 Resp 18 18 22 22 B/P 142/93 139/79 Pulse Ox 94 94 94 94 O2 Delivery Room Air Room Air Room Air Room Air 12/12/16 12/12/16 12/12/16 12/12/16 07:00 08:00 09:01 10:31 Temp 97.4 98.8 97.4 98.8 Pulse 77 75 Resp 22 18 B/P 142/93 141/82 139/83 Pulse Ox 94 94 O2 Delivery Room Air Room Air Room Air Intake and Output 12/11/16 12/11/16 12/12/16 15:00 23:00 07:00 Intake Total 400 ml 850 ml Output Total 7 ml Balance 393 ml 850 ml KEYONA OCONNOR MD Dec 12, 2016 12:18
--- NOTE | 2016-12-12 12:27 | PDOC ---
PULMONARY PROGRESS NOTES Subjective no soa mild cough Vitals Vital Signs Date Time Temp Pulse Resp B/P Pulse Ox O2 Delivery O2 Flow Rate FiO2 12/12/16 10:31 98.8 75 18 139/83 94 Room Air 98.8 General: Alert, No acute distress Lungs: Crackles (bases) Cardiovascular: S1 Abdomen: Soft Neuro Exam: Alert Extremities: No Edema Skin: Warm Labs Laboratory Tests Test 12/11/16 03:45 12/11/16 11:50 12/12/16 09:30 White Blood Count 5.0x10^3/uL (4.0-11.0) 5.6x10^3/uL (4.0-11.0) Red Blood Count 3.53x10^6/uL (3.50-5.40) 4.24x10^6/uL (3.50-5.40) Hemoglobin 9.5g/dL (12.0-15.5) 11.3g/dL (12.0-15.5) Hematocrit 28.1% (36.0-47.0) 34.4% (36.0-47.0) Mean Corpuscular Volume 80fL (79-100) 81fL (79-100) Mean Corpuscular Hemoglobin 27pg (25-35) 27pg (25-35) Mean Corpuscular Hemoglobin Concent 34g/dL (31-37) 33g/dL (31-37) Red Cell Distribution Width 17.6% (11.5-14.5) 18.2% (11.5-14.5) Platelet Count 174x10^3/uL (140-400) 230x10^3/uL (140-400) Neutrophils (%) (Auto) 84% (31-73) 80% (31-73) Lymphocytes (%) (Auto) 5% (24-48) 9% (24-48) Monocytes (%) (Auto) 11% (0-9) 12% (0-9) Eosinophils (%) (Auto) 0% (0-3) 0% (0-3) Basophils (%) (Auto) 0% (0-3) 0% (0-3) Neutrophils # (Auto) 4.2x10^3uL (1.8-7.7) 4.5x10^3uL (1.8-7.7) Lymphocytes # (Auto) 0.3x10^3/uL (1.0-4.8) 0.5x10^3/uL (1.0-4.8) Monocytes # (Auto) 0.5x10^3/uL (0.0-1.1) 0.6x10^3/uL (0.0-1.1) Eosinophils # (Auto) 0.0x10^3/uL (0.0-0.7) 0.0x10^3/uL (0.0-0.7) Basophils # (Auto) 0.0x10^3/uL (0.0-0.2) 0.0x10^3/uL (0.0-0.2) Heparin Anti-Xa Act, Unfractionated 0.29IU/mL (0.30-0.70) 0.48IU/mL (0.30-0.70) Sodium Level 138mmol/L (136-145) 137mmol/L (136-145) Potassium Level 3.1mmol/L (3.5-5.1) 4.0mmol/L (3.5-5.1) Chloride Level 103mmol/L (98-107) 105mmol/L (98-107) Carbon Dioxide Level 27mmol/L (21-32) 28mmol/L (21-32) Anion Gap 8 (6-14) 4 (6-14) Blood Urea Nitrogen 23mg/dL (7-20) 22mg/dL (7-20) Creatinine 1.1mg/dL (0.6-1.0) 1.0mg/dL (0.6-1.0) Estimated GFR (Cockcroft-Gault) 47.9 53.5 Glucose Level 173mg/dL (70-99) 107mg/dL (70-99) Calcium Level 8.2mg/dL (8.5-10.1) 8.4mg/dL (8.5-10.1) Magnesium Level 1.8mg/dL (1.8-2.4) Triglycerides Level 136mg/dL (0-150) Cholesterol Level 143mg/dL (0-200) LDL Cholesterol, Calculated 63mg/dL (0-100) VLDL Cholesterol, Calculated 27mg/dL (0-40) HDL Cholesterol 53mg/dL (40-60) Cholesterol/HDL Ratio 2.7 Laboratory Tests Test 12/12/16 09:30 White Blood Count 5.6x10^3/uL (4.0-11.0) Red Blood Count 4.24x10^6/uL (3.50-5.40) Hemoglobin 11.3g/dL (12.0-15.5) Hematocrit 34.4% (36.0-47.0) Mean Corpuscular Volume 81fL (79-100) Mean Corpuscular Hemoglobin 27pg (25-35) Mean Corpuscular Hemoglobin Concent 33g/dL (31-37) Red Cell Distribution Width 18.2% (11.5-14.5) Platelet Count 230x10^3/uL (140-400) Neutrophils (%) (Auto) 80% (31-73) Lymphocytes (%) (Auto) 9% (24-48) Monocytes (%) (Auto) 12% (0-9) Eosinophils (%) (Auto) 0% (0-3) Basophils (%) (Auto) 0% (0-3) Neutrophils # (Auto) 4.5x10^3uL (1.8-7.7) Lymphocytes # (Auto) 0.5x10^3/uL (1.0-4.8) Monocytes # (Auto) 0.6x10^3/uL (0.0-1.1) Eosinophils # (Auto) 0.0x10^3/uL (0.0-0.7) Basophils # (Auto) 0.0x10^3/uL (0.0-0.2) Sodium Level 137mmol/L (136-145) Potassium Level 4.0mmol/L (3.5-5.1) Chloride Level 105mmol/L (98-107) Carbon Dioxide Level 28mmol/L (21-32) Anion Gap 4 (6-14) Blood Urea Nitrogen 22mg/dL (7-20) Creatinine 1.0mg/dL (0.6-1.0) Estimated GFR (Cockcroft-Gault) 53.5 Glucose Level 107mg/dL (70-99) Calcium Level 8.4mg/dL (8.5-10.1) Medications Active Scripts Medications Dose Route/Sig Days Date Category Senna Laxative (Sennosides) 8.6 Mg Tablet 8.6 Mg PO 12/08/16 Reported Tramadol Hcl 50 Mg Tablet 1 Tab PO PRN Q6HRS 12/08/16 Reported Proair Hfa Inhaler (Albuterol Sulfate) 8.5 Gm Hfa.aer.ad 1 Puff INH PRN Q6HRS PRN 12/08/16 Reported Meloxicam 15 Mg Tablet 1 Tab PO DAILY 12/08/16 Reported Prednisone 10 Mg Tablet 10 Mg PO DAILY 12/08/16 Reported Leflunomide 10 Mg Tablet 10 Mg PO 12/08/16 Reported Folic Acid 1 Mg Tablet 1 Tab PO DAILY 12/08/16 Reported Levaquin (Levofloxacin) 250 Mg Tablet 250 Mg PO DAILY 06/29/15 Rx Loperamide (Loperamide Hcl) 2 Mg Capsule 2 Mg PO PRN Q4HRS PRN 06/26/15 Reported Promethazine Hcl 12.5 Mg Tablet 12.5 Mg PO Q6H PRN 06/26/15 Reported Atorvastatin Calcium 20 Mg Tablet 20 Mg PO DAILY 06/26/15 Reported Clopidogrel (Clopidogrel Bisulfate) 75 Mg Tablet 75 Mg PO DAILY 06/26/15 Reported Losartan Potassium 50 Mg Tablet 50 Mg PO DAILY 06/26/15 Reported Ibuprofen 200 Mg Tablet 200 Mg PO Q6HRS PRN 06/26/15 Reported Nabumetone 500 Mg Tablet 1 Tab PO BID 06/26/15 Reported Lisinopril 10 Mg Tablet 10 Mg PO DAILY 06/26/15 Reported Omeprazole 40 Mg Capsule.dr 40 Mg PO DAILY 06/26/15 Reported Hydroxychloroquine Sulfate 200 Mg Tablet 1 Tab PO BID 06/26/15 Reported Impression . 1. Acute respiratory failure secondary to influenza and underlying pulmonary fibrosis 2. Elevated troponin level, Cardiology following 3. Pulmonary fibrosis with acute exacerbation. 4. Secondary pulmonary Hypertension. 5. difficult to rule out pneumonia but clinically less likely 6. 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 1. We will continue oxygen supplementation. 2. off Zosyn. PO Augmentin. BC negative. off vanc 3. Cardiology recommendations. 4. PO steroids for fibrosis 5. Nebulized treatments. 6. DVT and GI prophylaxis. 7. ok pulmonary [facility] for d/c to skill d/w PCP IKE ROMANO MD Dec 12, 2016 12:27
[2016-12-12] MEDS: METOPROLOL SUCC 24HR ER 25 MG TAB.ER.24H. PO SCH (18:15)
[2016-12-12 19:56] VITALS: BP 129/74
[2016-12-12] MEDS: ATORVASTATIN CALCIUM 20 MG TABLET PO SCH (21:29)
[2016-12-12 23:50] VITALS: BP 130/71
[2016-12-13 03:57] VITALS: BP 129/70
[2016-12-13 05:50] LABS: BASO % 0 % (0-3); EOS % 0 % (0-3); HEMATOCRIT 32.7 % (36.0-47.0); HEMOGLOBIN 10.6 g/dL (12.0-15.5); LYMPH # 0.7 x10^3/uL (1.0-4.8); LYMPH % 14 % (24-48); MEAN CORPUSCULAR HEMOGLOBIN 26 pg (25-35); MEAN CORPUSCULAR HGB CONC 32 g/dL (31-37); MEAN CORPUSCULAR VOLUME 82 fL (79-100); MONO % 12 % (0-9); NEUT % 75 % (31-73); PLATELET COUNT 221 x10^3/uL (140-400); RED BLOOD COUNT 4.01 x10^6/uL (3.50-5.40); RED CELL DISTRIBUTION WIDTH 18.1 % (11.5-14.5); WHITE BLOOD COUNT 5.3 x10^3/uL (4.0-11.0)
[2016-12-13 06:15] LABS: CALCIUM 8.3 mg/dL (8.5-10.1); CREATININE 0.9 mg/dL (0.6-1.0); GFR 60.4; POTASSIUM 3.4 mmol/L (3.5-5.1)
[2016-12-13 07:00] VITALS: BP 128/68
[2016-12-13] MEDS: SENNOSIDES 8.6 MG TABLET PO SCH (09:00)
[2016-12-13] MEDS: PANTOPRAZOLE 40 MG TABLET. PO SCH (09:29)
[2016-12-13] MEDS: LOSARTAN POTASSIUM 50 MG TABLET. PO SCH (09:29)
[2016-12-13] MEDS: AMOXICILLIN/K CLAV 500/125MG TABLET. PO SCH ×2 (09:29→21:52)
[2016-12-13] MEDS: LEFLUNOMIDE 10 MG TABLET. PO SCH (09:29)
[2016-12-13] MEDS: HYDROXYCHLOROQUINE 200 MG TABLET PO SCH ×2 (09:29→21:52)
[2016-12-13] MEDS: PREDNISONE 20 MG TABLET PO SCH (09:30)
[2016-12-13] MEDS: ASPIRIN ENTERIC COATED 81 MG TABLET.DR. PO SCH (09:30)
[2016-12-13] MEDS: FUROSEMIDE 20 MG TABLET PO SCH (09:30)
[2016-12-13] MEDS: CLOPIDOGREL BISULFATE 75 MG TABLET PO SCH (09:30)
[2016-12-13] MEDS: FOLIC ACID 1 MG TABLET PO SCH (09:30)
[2016-12-13] MEDS: NYSTATIN TOPICAL POWDER 15GM BOTTLE. TP SCH ×2 (09:37→21:52)
--- NOTE | 2016-12-13 10:53 | PDOC ---
PULMONARY PROGRESS NOTES Subjective sob better, is tired mild cough Vitals Vital Signs Date Time Temp Pulse Resp B/P Pulse Ox O2 Delivery O2 Flow Rate FiO2 12/13/16 09:29 128/68 12/13/16 07:00 96.3 67 16 94 Room Air 96.3 Comments ros otherwise neg General: Alert, No acute distress HEENT: Other (nc at perrl) Lungs: Wheezing, Crackles Cardiovascular: S1 Abdomen: Soft, Non-tender, Other (no mass) Neuro Exam: Alert Extremities: No Edema Skin: Warm Labs Laboratory Tests Test 12/11/16 11:50 12/12/16 09:30 12/13/16 05:20 Heparin Anti-Xa Act, Unfractionated 0.48IU/mL (0.30-0.70) White Blood Count 5.6x10^3/uL (4.0-11.0) 5.3x10^3/uL (4.0-11.0) Red Blood Count 4.24x10^6/uL (3.50-5.40) 4.01x10^6/uL (3.50-5.40) Hemoglobin 11.3g/dL (12.0-15.5) 10.6g/dL (12.0-15.5) Hematocrit 34.4% (36.0-47.0) 32.7% (36.0-47.0) Mean Corpuscular Volume 81fL (79-100) 82fL (79-100) Mean Corpuscular Hemoglobin 27pg (25-35) 26pg (25-35) Mean Corpuscular Hemoglobin Concent 33g/dL (31-37) 32g/dL (31-37) Red Cell Distribution Width 18.2% (11.5-14.5) 18.1% (11.5-14.5) Platelet Count 230x10^3/uL (140-400) 221x10^3/uL (140-400) Neutrophils (%) (Auto) 80% (31-73) 75% (31-73) Lymphocytes (%) (Auto) 9% (24-48) 14% (24-48) Monocytes (%) (Auto) 12% (0-9) 12% (0-9) Eosinophils (%) (Auto) 0% (0-3) 0% (0-3) Basophils (%) (Auto) 0% (0-3) 0% (0-3) Neutrophils # (Auto) 4.5x10^3uL (1.8-7.7) 3.9x10^3uL (1.8-7.7) Lymphocytes # (Auto) 0.5x10^3/uL (1.0-4.8) 0.7x10^3/uL (1.0-4.8) Monocytes # (Auto) 0.6x10^3/uL (0.0-1.1) 0.6x10^3/uL (0.0-1.1) Eosinophils # (Auto) 0.0x10^3/uL (0.0-0.7) 0.0x10^3/uL (0.0-0.7) Basophils # (Auto) 0.0x10^3/uL (0.0-0.2) 0.0x10^3/uL (0.0-0.2) Sodium Level 137mmol/L (136-145) 141mmol/L (136-145) Potassium Level 4.0mmol/L (3.5-5.1) 3.4mmol/L (3.5-5.1) Chloride Level 105mmol/L (98-107) 106mmol/L (98-107) Carbon Dioxide Level 28mmol/L (21-32) 30mmol/L (21-32) Anion Gap 4 (6-14) 5 (6-14) Blood Urea Nitrogen 22mg/dL (7-20) 21mg/dL (7-20) Creatinine 1.0mg/dL (0.6-1.0) 0.9mg/dL (0.6-1.0) Estimated GFR (Cockcroft-Gault) 53.5 60.4 Glucose Level 107mg/dL (70-99) 84mg/dL (70-99) Calcium Level 8.4mg/dL (8.5-10.1) 8.3mg/dL (8.5-10.1) Laboratory Tests Test 12/13/16 05:20 White Blood Count 5.3x10^3/uL (4.0-11.0) Red Blood Count 4.01x10^6/uL (3.50-5.40) Hemoglobin 10.6g/dL (12.0-15.5) Hematocrit 32.7% (36.0-47.0) Mean Corpuscular Volume 82fL (79-100) Mean Corpuscular Hemoglobin 26pg (25-35) Mean Corpuscular Hemoglobin Concent 32g/dL (31-37) Red Cell Distribution Width 18.1% (11.5-14.5) Platelet Count 221x10^3/uL (140-400) Neutrophils (%) (Auto) 75% (31-73) Lymphocytes (%) (Auto) 14% (24-48) Monocytes (%) (Auto) 12% (0-9) Eosinophils (%) (Auto) 0% (0-3) Basophils (%) (Auto) 0% (0-3) Neutrophils # (Auto) 3.9x10^3uL (1.8-7.7) Lymphocytes # (Auto) 0.7x10^3/uL (1.0-4.8) Monocytes # (Auto) 0.6x10^3/uL (0.0-1.1) Eosinophils # (Auto) 0.0x10^3/uL (0.0-0.7) Basophils # (Auto) 0.0x10^3/uL (0.0-0.2) Sodium Level 141mmol/L (136-145) Potassium Level 3.4mmol/L (3.5-5.1) Chloride Level 106mmol/L (98-107) Carbon Dioxide Level 30mmol/L (21-32) Anion Gap 5 (6-14) Blood Urea Nitrogen 21mg/dL (7-20) Creatinine 0.9mg/dL (0.6-1.0) Estimated GFR (Cockcroft-Gault) 60.4 Glucose Level 84mg/dL (70-99) Calcium Level 8.3mg/dL (8.5-10.1) Medications Active Scripts Medications Dose Route/Sig Days Date Category Senna Laxative (Sennosides) 8.6 Mg Tablet 8.6 Mg PO 12/08/16 Reported Tramadol Hcl 50 Mg Tablet 1 Tab PO PRN Q6HRS 12/08/16 Reported Proair Hfa Inhaler (Albuterol Sulfate) 8.5 Gm Hfa.aer.ad 1 Puff INH PRN Q6HRS PRN 12/08/16 Reported Meloxicam 15 Mg Tablet 1 Tab PO DAILY 12/08/16 Reported Prednisone 10 Mg Tablet 10 Mg PO DAILY 12/08/16 Reported Leflunomide 10 Mg Tablet 10 Mg PO 12/08/16 Reported Folic Acid 1 Mg Tablet 1 Tab PO DAILY 12/08/16 Reported Levaquin (Levofloxacin) 250 Mg Tablet 250 Mg PO DAILY 06/29/15 Rx Loperamide (Loperamide Hcl) 2 Mg Capsule 2 Mg PO PRN Q4HRS PRN 06/26/15 Reported Promethazine Hcl 12.5 Mg Tablet 12.5 Mg PO Q6H PRN 06/26/15 Reported Atorvastatin Calcium 20 Mg Tablet 20 Mg PO DAILY 06/26/15 Reported Clopidogrel (Clopidogrel Bisulfate) 75 Mg Tablet 75 Mg PO DAILY 06/26/15 Reported Losartan Potassium 50 Mg Tablet 50 Mg PO DAILY 06/26/15 Reported Ibuprofen 200 Mg Tablet 200 Mg PO Q6HRS PRN 06/26/15 Reported Nabumetone 500 Mg Tablet 1 Tab PO BID 06/26/15 Reported Lisinopril 10 Mg Tablet 10 Mg PO DAILY 06/26/15 Reported Omeprazole 40 Mg Capsule.dr 40 Mg PO DAILY 06/26/15 Reported Hydroxychloroquine Sulfate 200 Mg Tablet 1 Tab PO BID 06/26/15 Reported Impression . 1. Acute respiratory failure secondary to influenza and underlying pulmonary fibrosis 2. Elevated troponin level, Cardiology following 3. Pulmonary fibrosis with acute exacerbation. 4. Secondary pulmonary Hypertension. 5. difficult to rule out pneumonia but clinically less likely 6. CMP (EF 35%) 7. wheezing, acute bronchospasm Plan . 1. 02 titration. 2. off Zosyn. PO Augmentin. BC negative. off vanc 3. Cardiology recommendations. 4. PO steroids for fibrosis 5. change Nebulized treatments to qid, add pulmicort 6. DVT and GI prophylaxis. 7. pt ot ok pulmonary [facility] for d/c to skill d/w PCP SMILEY VALVERDE MD Dec 13, 2016 10:53
[2016-12-13 11:00] VITALS: BP 113/63
[2016-12-13] MEDS: IPRATRPIUM/ALBUTEROL 0.5/2.5MG 3 ML NEBU. NEB SCH ×3 (12:00→20:18)
--- NOTE | 2016-12-13 12:40 | PDOC ---
PROGRESS NOTES Chief Complaint Chief Complaint cc: sob A/P Respiratory failure - influenza, IPF and possible pneumonia and congestive heart failure NSTEMI Anemia acute on Chronic heart failure HTN HLP Mild hyperglycemia due to steroids. Anemia s/p 1 unit of PRBC Plan PO augment steroids taper periodic nebulization SNU placement pending. labs reviewed, d/w daughter at bedside Physically weak PT/OT History of Present Illness History of Present Illness sob better no chest pain no fevers no chills. Vitals Vitals Vital Signs Date Time Temp Pulse Resp B/P Pulse Ox O2 Delivery O2 Flow Rate FiO2 12/13/16 11:00 98.9 74 18 113/63 94 Room Air 98.9 Physical Exam General: Alert, Oriented X3, mild distress Heart: Regular rate, Normal S1, Other Lungs: Wheezing, Crackles Abdomen: Normal bowel sounds, Soft Extremities: No clubbing, No cyanosis Labs LABS Laboratory Tests Test 12/13/16 05:20 White Blood Count 5.3x10^3/uL (4.0-11.0) Red Blood Count 4.01x10^6/uL (3.50-5.40) Hemoglobin 10.6g/dL (12.0-15.5) Hematocrit 32.7% (36.0-47.0) Mean Corpuscular Volume 82fL (79-100) Mean Corpuscular Hemoglobin 26pg (25-35) Mean Corpuscular Hemoglobin Concent 32g/dL (31-37) Red Cell Distribution Width 18.1% (11.5-14.5) Platelet Count 221x10^3/uL (140-400) Neutrophils (%) (Auto) 75% (31-73) Lymphocytes (%) (Auto) 14% (24-48) Monocytes (%) (Auto) 12% (0-9) Eosinophils (%) (Auto) 0% (0-3) Basophils (%) (Auto) 0% (0-3) Neutrophils # (Auto) 3.9x10^3uL (1.8-7.7) Lymphocytes # (Auto) 0.7x10^3/uL (1.0-4.8) Monocytes # (Auto) 0.6x10^3/uL (0.0-1.1) Eosinophils # (Auto) 0.0x10^3/uL (0.0-0.7) Basophils # (Auto) 0.0x10^3/uL (0.0-0.2) Sodium Level 141mmol/L (136-145) Potassium Level 3.4mmol/L (3.5-5.1) Chloride Level 106mmol/L (98-107) Carbon Dioxide Level 30mmol/L (21-32) Anion Gap 5 (6-14) Blood Urea Nitrogen 21mg/dL (7-20) Creatinine 0.9mg/dL (0.6-1.0) Estimated GFR (Cockcroft-Gault) 60.4 Glucose Level 84mg/dL (70-99) Calcium Level 8.3mg/dL (8.5-10.1) Assessment and Plan Assessmemt and Plan Problems Medical Problems: (1) Elevated troponin Status: Acute (2) Idiopathic pulmonary fibrosis Status: Acute (3) Influenza Status: Acute (4) Non-STEMI (non-ST elevated myocardial infarction) Status: Acute Problems: Comment Review of Relevant I have reviewed the following items cony (where applicable) has been applied. Labs Laboratory Tests Test 12/12/16 09:30 12/13/16 05:20 White Blood Count 5.6x10^3/uL (4.0-11.0) 5.3x10^3/uL (4.0-11.0) Red Blood Count 4.24x10^6/uL (3.50-5.40) 4.01x10^6/uL (3.50-5.40) Hemoglobin 11.3g/dL (12.0-15.5) 10.6g/dL (12.0-15.5) Hematocrit 34.4% (36.0-47.0) 32.7% (36.0-47.0) Mean Corpuscular Volume 81fL (79-100) 82fL (79-100) Mean Corpuscular Hemoglobin 27pg (25-35) 26pg (25-35) Mean Corpuscular Hemoglobin Concent 33g/dL (31-37) 32g/dL (31-37) Red Cell Distribution Width 18.2% (11.5-14.5) 18.1% (11.5-14.5) Platelet Count 230x10^3/uL (140-400) 221x10^3/uL (140-400) Neutrophils (%) (Auto) 80% (31-73) 75% (31-73) Lymphocytes (%) (Auto) 9% (24-48) 14% (24-48) Monocytes (%) (Auto) 12% (0-9) 12% (0-9) Eosinophils (%) (Auto) 0% (0-3) 0% (0-3) Basophils (%) (Auto) 0% (0-3) 0% (0-3) Neutrophils # (Auto) 4.5x10^3uL (1.8-7.7) 3.9x10^3uL (1.8-7.7) Lymphocytes # (Auto) 0.5x10^3/uL (1.0-4.8) 0.7x10^3/uL (1.0-4.8) Monocytes # (Auto) 0.6x10^3/uL (0.0-1.1) 0.6x10^3/uL (0.0-1.1) Eosinophils # (Auto) 0.0x10^3/uL (0.0-0.7) 0.0x10^3/uL (0.0-0.7) Basophils # (Auto) 0.0x10^3/uL (0.0-0.2) 0.0x10^3/uL (0.0-0.2) Sodium Level 137mmol/L (136-145) 141mmol/L (136-145) Potassium Level 4.0mmol/L (3.5-5.1) 3.4mmol/L (3.5-5.1) Chloride Level 105mmol/L (98-107) 106mmol/L (98-107) Carbon Dioxide Level 28mmol/L (21-32) 30mmol/L (21-32) Anion Gap 4 (6-14) 5 (6-14) Blood Urea Nitrogen 22mg/dL (7-20) 21mg/dL (7-20) Creatinine 1.0mg/dL (0.6-1.0) 0.9mg/dL (0.6-1.0) Estimated GFR (Cockcroft-Gault) 53.5 60.4 Glucose Level 107mg/dL (70-99) 84mg/dL (70-99) Calcium Level 8.4mg/dL (8.5-10.1) 8.3mg/dL (8.5-10.1) Laboratory Tests Test 12/13/16 05:20 White Blood Count 5.3x10^3/uL (4.0-11.0) Red Blood Count 4.01x10^6/uL (3.50-5.40) Hemoglobin 10.6g/dL (12.0-15.5) Hematocrit 32.7% (36.0-47.0) Mean Corpuscular Volume 82fL (79-100) Mean Corpuscular Hemoglobin 26pg (25-35) Mean Corpuscular Hemoglobin Concent 32g/dL (31-37) Red Cell Distribution Width 18.1% (11.5-14.5) Platelet Count 221x10^3/uL (140-400) Neutrophils (%) (Auto) 75% (31-73) Lymphocytes (%) (Auto) 14% (24-48) Monocytes (%) (Auto) 12% (0-9) Eosinophils (%) (Auto) 0% (0-3) Basophils (%) (Auto) 0% (0-3) Neutrophils # (Auto) 3.9x10^3uL (1.8-7.7) Lymphocytes # (Auto) 0.7x10^3/uL (1.0-4.8) Monocytes # (Auto) 0.6x10^3/uL (0.0-1.1) Eosinophils # (Auto) 0.0x10^3/uL (0.0-0.7) Basophils # (Auto) 0.0x10^3/uL (0.0-0.2) Sodium Level 141mmol/L (136-145) Potassium Level 3.4mmol/L (3.5-5.1) Chloride Level 106mmol/L (98-107) Carbon Dioxide Level 30mmol/L (21-32) Anion Gap 5 (6-14) Blood Urea Nitrogen 21mg/dL (7-20) Creatinine 0.9mg/dL (0.6-1.0) Estimated GFR (Cockcroft-Gault) 60.4 Glucose Level 84mg/dL (70-99) Calcium Level 8.3mg/dL (8.5-10.1) Microbiology 12/07/16 Blood Culture - Final, Complete NO GROWTH AFTER 5 DAYS Medications Current Medications Albuterol/ Ipratropium 3 ml 3 ml 1X ONCE NEB Last administered on 12/07/16 18: 26; Start 12/07/16 at 18:30; Stop 12/07/16 at 18:31; Status DC Piperacillin Sod/ Tazobactam Sod/ Sodium Chloride (Zosyn/Iv Sodium Chloride 0.9 % 100ml) 100 ml @ 200 mls/hr Q6HRS IV ; Start 12/08/16 at 00:00; Status UNV Vancomycin HCl (Vanco Per Pharmacy) 1 each PRN DAILY PRN MC SEE COMMENTS Last administered on 12/09/16 22:07; Start 12/07/16 at 20:00; Stop 12/10/16 at 13:08; Status DC Heparin Sodium (Porcine) 3600 unit 3,600 unit 1X ONCE IV Last administered on 12/07/16 20:17; Start 12/07/16 at 20:30; Stop 12/07/16 at 20:31; Status DC Heparin Sodium/ Dextrose 500 ml @ 0 mls/hr CONT PRN IV SEE I/O RECORD Last administered on 12/11/16 05:43; Start 12/07/16 at 20:00; Stop 12/11/16 at 12:34 ; Status DC Heparin Sodium (Porcine) 1500 unit 1,500 unit PRN Q6HRS PRN IV FOR UFH LEVEL LESS THAN 0.2; Start 12/07/16 at 20:00; Stop 12/11/16 at 12:32; Status DC Vancomycin HCl/ Sodium Chloride (Iv Sodium Chloride 0.9% 500ml Bag) 500 ml @ 250 mls/hr 1X ONCE IV Last administered on 12/07/16 20:30; Start 12/07/16 at 20 :30; Stop 12/07/16 at 22:29; Status DC Furosemide 20 mg 20 mg 1X ONCE IVP Last administered on 12/07/16 22:03; Start 12/07/16 at 20:45; Stop 12/07/16 at 20:46; Status DC Piperacillin Sod/ Tazobactam Sod 3.375 gm/Sodium Chloride 50 ml @ 100 mls/hr Q6HRS IV Last administered on 12/11/16 05:08; Start 12/07/16 at 23:00; Stop 10/17 at 12:03; Status DC Vancomycin HCl/ Sodium Chloride (Iv Sodium Chloride 0.9% 250ml) 250 ml @ 250 mls/hr Q24H IV Last administered on 12/09/16 22:50; Start 12/08/16 at 20:00; Stop 12/10/16 at 13:06; Status DC Vancomycin HCl 1 each 1X ONCE MC Last administered on 12/09/16 19:30; Start at 19:30; Stop 12/09/16 at 19:31; Status DC Ondansetron HCl (Zofran) 4 mg PRN Q8HRS PRN IV NAUSEA/VOMITING Last administered on 12/08/16 02:44; Start 12/07/16 at 22:15; Stop 12/08/16 at 22:14; Status DC Acetaminophen (Tylenol) 650 mg PRN Q4HRS PRN PO FEVER; Start 12/07/16 at 22:15; Stop 12/08/16 at 22:14; Status DC Nitroglycerin (Nitrostat) 0.4 mg PRN Q5MIN PRN SL CHEST PAIN; Start 12/07/16 at 22:15; Stop 12/08/16 at 22:14; Status DC Albuterol/ Ipratropium (Duoneb) 3 ml RTQID NEB Last administered on 12/09/16 11 :43; Start 12/08/16 at 08:00; Stop 12/09/16 at 07:59; Status DC Methylprednisolone Sodium Succinate (Solu-Medrol 40mg Vial) 40 mg Q8HRS IV ; Start 12/08/16 at 06:00; Stop 12/08/16 at 06:00; Status DC Oseltamivir Phosphate (Tamiflu) 75 mg BID PO Last administered on 12/12/16 21: 29; Start 12/08/16 at 09:00; Stop 12/12/16 at 23:59; Status DC Oseltamivir Phosphate (Tamiflu) 75 mg 1X ONCE PO Last administered on 00:33; Start 12/07/16 at 23:30; Stop 12/07/16 at 23:31; Status DC Atorvastatin Calcium (Lipitor) 20 mg QHS PO Last administered on 12/12/16 21: 29; Start 12/08/16 at 21:00 Clopidogrel Bisulfate (Plavix) 75 mg DAILY PO Last administered on 12/13/16 09 :30; Start 12/08/16 at 09:00 Hydroxychloroquine Sulfate (Plaquenil) 200 mg BID PO Last administered on 09:29; Start 12/08/16 at 09:00 Ibuprofen (Motrin) 200 mg PRN Q6HRS PRN PO INFLAMMATION; Start 12/08/16 at 06:00 ; Stop 12/09/16 at 15:16; Status DC Lisinopril (Prinivil) 10 mg DAILY PO Last administered on 12/09/16 09:32; Start 12/08/16 at 09:00; Stop 12/09/16 at 15:16; Status DC Loperamide HCl (Imodium) 2 mg PRN Q4HRS PRN PO DIARRHEA; Start 12/08/16 at 00:15 Losartan Potassium (Cozaar) 50 mg DAILY PO Last administered on 12/13/16 09:29 ; Start 12/08/16 at 09:00 Promethazine HCl (Phenergan) 12.5 mg PRN Q6HRS PRN PO NAUSEA/VOMITING Last administered on 12/12/16 10:57; Start 12/08/16 at 00:15 Pantoprazole Sodium (Protonix) 40 mg DAILYAC PO Last administered on 12/13/16 09:29; Start 12/08/16 at 07:30 Furosemide (Lasix) 20 mg DAILY PO Last administered on 12/13/16 09:30; Start 12/08/16 at 09:00 Info (Anti-Coagulation Monitoring By Pharmacy) 1 each PRN DAILY PRN MC SEE COMMENTS Last administered on 12/09/16 15:36; Start 12/08/16 at 09:30; Stop 12/11 at 12:35; Status DC Potassium Chloride (Klor-Con) 40 meq 1X ONCE PO Last administered on 12/08/16 13:15; Start 12/08/16 at 12:30; Stop 12/08/16 at 12:31; Status DC Methylprednisolone Sodium Succinate (Solu-Medrol 125mg Vial) 125 mg DAILY IV Last administered on 12/10/16 09:22; Start 12/08/16 at 13:30; Stop 12/10/16 at 13:06; Status DC Folic Acid (Folic Acid) 1 mg DAILY PO Last administered on 12/13/16 09:30; Start 12/09/16 at 09:00 Leflunomide (Arava) 10 mg DAILY PO Last administered on 12/13/16 09:29; Start 12/09/16 at 09:00 Levofloxacin (Levaquin) 250 mg DAILY PO Last administered on 12/11/16 10:04; Start 12/09/16 at 09:00; Stop 12/11/16 at 16:09; Status DC Prednisone (Prednisone) 10 mg DAILY PO Last administered on 12/09/16 09:34; Start 12/09/16 at 09:00; Stop 12/09/16 at 15:26; Status DC Sennosides (Senna) 8.6 mg DAILY PO Last administered on 12/11/16 10:04; Start 12/09/16 at 09:00 Tramadol HCl (Ultram) 50 mg PRN Q6HRS PO ; Start 12/08/16 at 15:00; Stop at 00:47; Status DC Albuterol Sulfate (Ventolin Neb Soln) 2.5 mg PRN Q6HRS PRN NEB SHORTNESS OF BREATH Last administered on 12/09/16 19:25; Start 12/08/16 at 15:00 Meloxicam (Mobic) 15 mg DAILY PO Last administered on 12/09/16 09:33; Start 12/09/16 at 09:00; Stop 12/09/16 at 15:16; Status DC Non-Formulary Medication 1 tab BID PO ; Start 12/08/16 at 21:00; Stop 12/08/16 at 21:00; Status DC Tramadol HCl (Ultram) 50 mg PRN Q6HRS PRN PO MODERATE PAIN Last administered on 12/11/16 21:04; Start 12/09/16 at 00:47 Furosemide (Lasix) 20 mg 1X PRN PRN IV Blood transfusion; Start 12/09/16 at 12: 30; Stop 12/10/16 at 12:29; Status DC Hydralazine HCl (Apresoline) 10 mg PRN Q4HRS PRN IVP ELEVATED BP, SEE COMMENTS ; Start 12/09/16 at 15:15 Prednisone (Prednisone) 20 mg DAILY PO Last administered on 12/13/16 09:30; Start 12/11/16 at 09:00 Metoprolol Succinate (Toprol Xl) 12.5 mg DAILYWSUP PO Last administered on 12/10 18:29; Start 12/10/16 at 17:00; Stop 12/11/16 at 14:38; Status DC Nystatin 1 ronnie 1 ronnie BID TP Last administered on 12/13/16 09:37; Start at 15:30 Magnesium Sulfate/ Dextrose (Magnesium Sulfate PREMIX 2GM) 50 ml @ 25 mls/hr 1X ONCE IV Last administered on 12/11/16 13:31; Start 12/11/16 at 11:00; Stop 12/11/16 at 12:59; Status DC Potassium Chloride (Klor-Con) 40 meq BID PO Last administered on 12/11/16 21: 03; Start 12/11/16 at 11:00; Stop 12/11/16 at 23:55; Status DC Amoxicillin/ Clavulanate Potassium (Augmentin 500/ 125mg) 1 tab BID PO Last administered on 12/13/16 09:29; Start 12/11/16 at 12:00 Aspirin (Ecotrin) 81 mg DAILYWBKFT PO Last administered on 12/13/16 09:30; Start 12/11/16 at 12:30 Metoprolol Succinate (Toprol Xl) 25 mg DAILYWSUP PO Last administered on 18:15; Start 12/11/16 at 17:00 Albuterol/ Ipratropium (Duoneb) 3 ml RTQID NEB ; Start 12/13/16 at 12:00 Budesonide (Pulmicort) 0.5 mg RTBID NEB ; Start 12/13/16 at 11:00 Active Scripts Active Levaquin (Levofloxacin) 250 Mg Tablet 250 Mg PO DAILY Reported Senna Laxative (Sennosides) 8.6 Mg Tablet 8.6 Mg PO Tramadol Hcl 50 Mg Tablet 1 Tab PO PRN Q6HRS Proair Hfa Inhaler (Albuterol Sulfate) 8.5 Gm Hfa.aer.ad 1 Puff INH PRN Q6HRS PRN Meloxicam 15 Mg Tablet 1 Tab PO DAILY Prednisone 10 Mg Tablet 10 Mg PO DAILY Leflunomide 10 Mg Tablet 10 Mg PO Folic Acid 1 Mg Tablet 1 Tab PO DAILY Loperamide (Loperamide Hcl) 2 Mg Capsule 2 Mg PO PRN Q4HRS PRN Promethazine Hcl 12.5 Mg Tablet 12.5 Mg PO Q6H PRN Atorvastatin Calcium 20 Mg Tablet 20 Mg PO DAILY Clopidogrel (Clopidogrel Bisulfate) 75 Mg Tablet 75 Mg PO DAILY Losartan Potassium 50 Mg Tablet 50 Mg PO DAILY Ibuprofen 200 Mg Tablet 200 Mg PO Q6HRS PRN Nabumetone 500 Mg Tablet 1 Tab PO BID Lisinopril 10 Mg Tablet 10 Mg PO DAILY Omeprazole 40 Mg Capsule.dr 40 Mg PO DAILY Hydroxychloroquine Sulfate 200 Mg Tablet 1 Tab PO BID Vitals/I & O Vital Sign - Last 24 Hours 12/12/16 12/12/16 12/12/16 12/12/16 18:15 19:56 20:00 23:50 Temp 97.8 97.5 97.8 97.5 Pulse 81 66 64 Resp 20 18 B/P 129/74 130/71 Pulse Ox 94 94 O2 Delivery Room Air Room Air Room Air 12/13/16 12/13/16 12/13/16 12/13/16 03:57 07:00 08:00 09:29 Temp 97.5 96.3 97.5 96.3 Pulse 68 67 Resp 16 16 B/P 129/70 128/68 128/68 Pulse Ox 96 94 O2 Delivery Room Air Room Air Room Air 12/13/16 11:00 Temp 98.9 98.9 Pulse 74 Resp 18 B/P 113/63 Pulse Ox 94 O2 Delivery Room Air Intake and Output 12/12/16 12/12/16 12/13/16 15:00 23:00 07:00 Intake Total 400 ml 100 ml Output Total 950 ml 0 ml Balance -550 ml 100 ml KEYONA OCONNOR MD Dec 13, 2016 12:40
[2016-12-13] MEDS ORDERED: POTASSIUM CHLORIDE 20 MEQ TABLET.ER. PO ONE (13:30)
[2016-12-13 15:00] VITALS: BP 114/56
[2016-12-13] MEDS: BUDESONIDE 0.5 MG/2 ML NEBU NEB SCH ×2 (16:18→20:18)
[2016-12-13] MEDS: METOPROLOL SUCC 24HR ER 25 MG TAB.ER.24H. PO SCH (17:38)
[2016-12-13 19:30] VITALS: BP 113/62
[2016-12-13] MEDS: ATORVASTATIN CALCIUM 20 MG TABLET PO SCH (21:52)
[2016-12-13 23:00] VITALS: BP 113/62
[2016-12-14 05:27] LABS: BASO % 0 % (0-3); EOS % 0 % (0-3); HEMOGLOBIN 10.9 g/dL (12.0-15.5); LYMPH # 0.6 x10^3/uL (1.0-4.8); LYMPH % 9 % (24-48); MEAN CORPUSCULAR HEMOGLOBIN 27 pg (25-35); MEAN CORPUSCULAR HGB CONC 33 g/dL (31-37); MEAN CORPUSCULAR VOLUME 81 fL (79-100); MONO % 11 % (0-9); NEUT % 80 % (31-73); PLATELET COUNT 254 x10^3/uL (140-400); RED BLOOD COUNT 4.07 x10^6/uL (3.50-5.40); RED CELL DISTRIBUTION WIDTH 18.3 % (11.5-14.5); WHITE BLOOD COUNT 6.8 x10^3/uL (4.0-11.0)
[2016-12-14 06:03] LABS: CALCIUM 8.3 mg/dL (8.5-10.1); CREATININE 0.9 mg/dL (0.6-1.0); GFR 60.4; POTASSIUM 4.1 mmol/L (3.5-5.1)
[2016-12-14] MEDS: BUDESONIDE 0.5 MG/2 ML NEBU NEB SCH ×2 (06:08→18:17)
[2016-12-14] MEDS: IPRATRPIUM/ALBUTEROL 0.5/2.5MG 3 ML NEBU. NEB SCH ×4 (06:08→18:15)
--- NOTE | 2016-12-14 06:32 | PDOC ---
PULMONARY PROGRESS NOTES Subjective sob better, is tired has mild cough, nasal congestion Vitals Vital Signs Date Time Temp Pulse Resp B/P Pulse Ox O2 Delivery O2 Flow Rate FiO2 12/14/16 06:05 98 Room Air 12/13/16 23:00 98.0 73 20 113/62 98.0 Comments ros otherwise neg General: Alert, No acute distress HEENT: Other (nc at perrl) Lungs: Wheezing, Crackles Cardiovascular: S1 Abdomen: Soft, Non-tender, Other (no mass) Neuro Exam: Alert Extremities: No Edema Skin: Warm Labs Laboratory Tests Test 12/12/16 09:30 12/13/16 05:20 12/14/16 04:17 12/14/16 04:27 White Blood Count 5.6x10^3/uL (4.0-11.0) 5.3x10^3/uL (4.0-11.0) 6.8x10^3/uL (4.0-11.0) Red Blood Count 4.24x10^6/uL (3.50-5.40) 4.01x10^6/uL (3.50-5.40) 4.07x10^6/uL (3.50-5.40) Hemoglobin 11.3g/dL (12.0-15.5) 10.6g/dL (12.0-15.5) 10.9g/dL (12.0-15.5) Hematocrit 34.4% (36.0-47.0) 32.7% (36.0-47.0) 33.0% (36.0-47.0) Mean Corpuscular Volume 81fL (79-100) 82fL (79-100) 81fL (79-100) Mean Corpuscular Hemoglobin 27pg (25-35) 26pg (25-35) 27pg (25-35) Mean Corpuscular Hemoglobin Concent 33g/dL (31-37) 32g/dL (31-37) 33g/dL (31-37) Red Cell Distribution Width 18.2% (11.5-14.5) 18.1% (11.5-14.5) 18.3% (11.5-14.5) Platelet Count 230x10^3/uL (140-400) 221x10^3/uL (140-400) 254x10^3/uL (140-400) Neutrophils (%) (Auto) 80% (31-73) 75% (31-73) 80% (31-73) Lymphocytes (%) (Auto) 9% (24-48) 14% (24-48) 9% (24-48) Monocytes (%) (Auto) 12% (0-9) 12% (0-9) 11% (0-9) Eosinophils (%) (Auto) 0% (0-3) 0% (0-3) 0% (0-3) Basophils (%) (Auto) 0% (0-3) 0% (0-3) 0% (0-3) Neutrophils # (Auto) 4.5x10^3uL (1.8-7.7) 3.9x10^3uL (1.8-7.7) 5.4x10^3uL (1.8-7.7) Lymphocytes # (Auto) 0.5x10^3/uL (1.0-4.8) 0.7x10^3/uL (1.0-4.8) 0.6x10^3/uL (1.0-4.8) Monocytes # (Auto) 0.6x10^3/uL (0.0-1.1) 0.6x10^3/uL (0.0-1.1) 0.8x10^3/uL (0.0-1.1) Eosinophils # (Auto) 0.0x10^3/uL (0.0-0.7) 0.0x10^3/uL (0.0-0.7) 0.0x10^3/uL (0.0-0.7) Basophils # (Auto) 0.0x10^3/uL (0.0-0.2) 0.0x10^3/uL (0.0-0.2) 0.0x10^3/uL (0.0-0.2) Sodium Level 137mmol/L (136-145) 141mmol/L (136-145) 142mmol/L (136-145) Potassium Level 4.0mmol/L (3.5-5.1) 3.4mmol/L (3.5-5.1) 4.1mmol/L (3.5-5.1) Chloride Level 105mmol/L (98-107) 106mmol/L (98-107) 107mmol/L (98-107) Carbon Dioxide Level 28mmol/L (21-32) 30mmol/L (21-32) 28mmol/L (21-32) Anion Gap 4 (6-14) 5 (6-14) 7 (6-14) Blood Urea Nitrogen 22mg/dL (7-20) 21mg/dL (7-20) 24mg/dL (7-20) Creatinine 1.0mg/dL (0.6-1.0) 0.9mg/dL (0.6-1.0) 0.9mg/dL (0.6-1.0) Estimated GFR (Cockcroft-Gault) 53.5 60.4 60.4 Glucose Level 107mg/dL (70-99) 84mg/dL (70-99) 115mg/dL (70-99) Calcium Level 8.4mg/dL (8.5-10.1) 8.3mg/dL (8.5-10.1) 8.3mg/dL (8.5-10.1) Laboratory Tests Test 12/14/16 04:17 12/14/16 04:27 White Blood Count 6.8x10^3/uL (4.0-11.0) Red Blood Count 4.07x10^6/uL (3.50-5.40) Hemoglobin 10.9g/dL (12.0-15.5) Hematocrit 33.0% (36.0-47.0) Mean Corpuscular Volume 81fL (79-100) Mean Corpuscular Hemoglobin 27pg (25-35) Mean Corpuscular Hemoglobin Concent 33g/dL (31-37) Red Cell Distribution Width 18.3% (11.5-14.5) Platelet Count 254x10^3/uL (140-400) Neutrophils (%) (Auto) 80% (31-73) Lymphocytes (%) (Auto) 9% (24-48) Monocytes (%) (Auto) 11% (0-9) Eosinophils (%) (Auto) 0% (0-3) Basophils (%) (Auto) 0% (0-3) Neutrophils # (Auto) 5.4x10^3uL (1.8-7.7) Lymphocytes # (Auto) 0.6x10^3/uL (1.0-4.8) Monocytes # (Auto) 0.8x10^3/uL (0.0-1.1) Eosinophils # (Auto) 0.0x10^3/uL (0.0-0.7) Basophils # (Auto) 0.0x10^3/uL (0.0-0.2) Sodium Level 142mmol/L (136-145) Potassium Level 4.1mmol/L (3.5-5.1) Chloride Level 107mmol/L (98-107) Carbon Dioxide Level 28mmol/L (21-32) Anion Gap 7 (6-14) Blood Urea Nitrogen 24mg/dL (7-20) Creatinine 0.9mg/dL (0.6-1.0) Estimated GFR (Cockcroft-Gault) 60.4 Glucose Level 115mg/dL (70-99) Calcium Level 8.3mg/dL (8.5-10.1) Medications Active Scripts Medications Dose Route/Sig Days Date Category Senna Laxative (Sennosides) 8.6 Mg Tablet 8.6 Mg PO 12/08/16 Reported Tramadol Hcl 50 Mg Tablet 1 Tab PO PRN Q6HRS 12/08/16 Reported Proair Hfa Inhaler (Albuterol Sulfate) 8.5 Gm Hfa.aer.ad 1 Puff INH PRN Q6HRS PRN 12/08/16 Reported Meloxicam 15 Mg Tablet 1 Tab PO DAILY 12/08/16 Reported Prednisone 10 Mg Tablet 10 Mg PO DAILY 12/08/16 Reported Leflunomide 10 Mg Tablet 10 Mg PO 12/08/16 Reported Folic Acid 1 Mg Tablet 1 Tab PO DAILY 12/08/16 Reported Levaquin (Levofloxacin) 250 Mg Tablet 250 Mg PO DAILY 06/29/15 Rx Loperamide (Loperamide Hcl) 2 Mg Capsule 2 Mg PO PRN Q4HRS PRN 06/26/15 Reported Promethazine Hcl 12.5 Mg Tablet 12.5 Mg PO Q6H PRN 06/26/15 Reported Atorvastatin Calcium 20 Mg Tablet 20 Mg PO DAILY 06/26/15 Reported Clopidogrel (Clopidogrel Bisulfate) 75 Mg Tablet 75 Mg PO DAILY 06/26/15 Reported Losartan Potassium 50 Mg Tablet 50 Mg PO DAILY 06/26/15 Reported Ibuprofen 200 Mg Tablet 200 Mg PO Q6HRS PRN 06/26/15 Reported Nabumetone 500 Mg Tablet 1 Tab PO BID 06/26/15 Reported Lisinopril 10 Mg Tablet 10 Mg PO DAILY 06/26/15 Reported Omeprazole 40 Mg Capsule.dr 40 Mg PO DAILY 06/26/15 Reported Hydroxychloroquine Sulfate 200 Mg Tablet 1 Tab PO BID 06/26/15 Reported Comments cxr reviewed, Impression: 1. Bilateral infiltrates. 2. Possible mediastinal adenopathy. Impression . 1. Acute respiratory failure secondary to influenza and underlying pulmonary fibrosis 2. Elevated troponin level, Cardiology following 3. Pulmonary fibrosis with acute exacerbation. 4. Secondary pulmonary Hypertension. 5. difficult to rule out pneumonia but clinically less likely 6. CMP (EF 35%) 7. wheezing, acute bronchospasm 8. allergic rhinitis Plan . 1. 02 titration. 2. off Zosyn. PO Augmentin. BC negative. off vanc 3. Cardiology recommendations. 4. PO steroids for fibrosis 5. Nebulized treatments to qid, pulmicort 6. DVT and GI prophylaxis. 7. add [place] pt ot ok pulmonary [facility] for d/c to [facility] d/w SMILEY DEAN MD Dec 14, 2016 06:32
[2016-12-14 07:00] VITALS: BP 107/59
--- NOTE | 2016-12-14 07:10 | PDOC ---
PROGRESS NOTES Chief Complaint Chief Complaint cc: sob A/P Respiratory failure - influenza, IPF and possible pneumonia and congestive heart failure NSTEMI Anemia acute on Chronic heart failure HTN HLP Mild hyperglycemia due to steroids. Anemia s/p 1 unit of PRBC Plan PO augment steroids taper periodic nebulization SNU placement pending. labs reviewed, Physically weak PT/OT History of Present Illness History of Present Illness sob better no chest pain no fevers no chills. Vitals Vitals Vital Signs Date Time Temp Pulse Resp B/P Pulse Ox O2 Delivery O2 Flow Rate FiO2 12/14/16 06:05 98 Room Air 12/13/16 23:00 98.0 73 20 113/62 98.0 Physical Exam General: Alert, Oriented X3, mild distress Heart: Regular rate, Normal S1, Other Lungs: Wheezing, Crackles Abdomen: Normal bowel sounds, Soft Extremities: No clubbing, No cyanosis Labs LABS Laboratory Tests Test 12/14/16 04:17 12/14/16 04:27 White Blood Count 6.8x10^3/uL (4.0-11.0) Red Blood Count 4.07x10^6/uL (3.50-5.40) Hemoglobin 10.9g/dL (12.0-15.5) Hematocrit 33.0% (36.0-47.0) Mean Corpuscular Volume 81fL (79-100) Mean Corpuscular Hemoglobin 27pg (25-35) Mean Corpuscular Hemoglobin Concent 33g/dL (31-37) Red Cell Distribution Width 18.3% (11.5-14.5) Platelet Count 254x10^3/uL (140-400) Neutrophils (%) (Auto) 80% (31-73) Lymphocytes (%) (Auto) 9% (24-48) Monocytes (%) (Auto) 11% (0-9) Eosinophils (%) (Auto) 0% (0-3) Basophils (%) (Auto) 0% (0-3) Neutrophils # (Auto) 5.4x10^3uL (1.8-7.7) Lymphocytes # (Auto) 0.6x10^3/uL (1.0-4.8) Monocytes # (Auto) 0.8x10^3/uL (0.0-1.1) Eosinophils # (Auto) 0.0x10^3/uL (0.0-0.7) Basophils # (Auto) 0.0x10^3/uL (0.0-0.2) Sodium Level 142mmol/L (136-145) Potassium Level 4.1mmol/L (3.5-5.1) Chloride Level 107mmol/L (98-107) Carbon Dioxide Level 28mmol/L (21-32) Anion Gap 7 (6-14) Blood Urea Nitrogen 24mg/dL (7-20) Creatinine 0.9mg/dL (0.6-1.0) Estimated GFR (Cockcroft-Gault) 60.4 Glucose Level 115mg/dL (70-99) Calcium Level 8.3mg/dL (8.5-10.1) Assessment and Plan Assessmemt and Plan Problems Medical Problems: (1) Elevated troponin Status: Acute (2) Idiopathic pulmonary fibrosis Status: Acute (3) Influenza Status: Acute (4) Non-STEMI (non-ST elevated myocardial infarction) Status: Acute Problems: Comment Review of Relevant I have reviewed the following items cony (where applicable) has been applied. Labs Laboratory Tests Test 12/12/16 09:30 12/13/16 05:20 12/14/16 04:17 12/14/16 04:27 White Blood Count 5.6x10^3/uL (4.0-11.0) 5.3x10^3/uL (4.0-11.0) 6.8x10^3/uL (4.0-11.0) Red Blood Count 4.24x10^6/uL (3.50-5.40) 4.01x10^6/uL (3.50-5.40) 4.07x10^6/uL (3.50-5.40) Hemoglobin 11.3g/dL (12.0-15.5) 10.6g/dL (12.0-15.5) 10.9g/dL (12.0-15.5) Hematocrit 34.4% (36.0-47.0) 32.7% (36.0-47.0) 33.0% (36.0-47.0) Mean Corpuscular Volume 81fL (79-100) 82fL (79-100) 81fL (79-100) Mean Corpuscular Hemoglobin 27pg (25-35) 26pg (25-35) 27pg (25-35) Mean Corpuscular Hemoglobin Concent 33g/dL (31-37) 32g/dL (31-37) 33g/dL (31-37) Red Cell Distribution Width 18.2% (11.5-14.5) 18.1% (11.5-14.5) 18.3% (11.5-14.5) Platelet Count 230x10^3/uL (140-400) 221x10^3/uL (140-400) 254x10^3/uL (140-400) Neutrophils (%) (Auto) 80% (31-73) 75% (31-73) 80% (31-73) Lymphocytes (%) (Auto) 9% (24-48) 14% (24-48) 9% (24-48) Monocytes (%) (Auto) 12% (0-9) 12% (0-9) 11% (0-9) Eosinophils (%) (Auto) 0% (0-3) 0% (0-3) 0% (0-3) Basophils (%) (Auto) 0% (0-3) 0% (0-3) 0% (0-3) Neutrophils # (Auto) 4.5x10^3uL (1.8-7.7) 3.9x10^3uL (1.8-7.7) 5.4x10^3uL (1.8-7.7) Lymphocytes # (Auto) 0.5x10^3/uL (1.0-4.8) 0.7x10^3/uL (1.0-4.8) 0.6x10^3/uL (1.0-4.8) Monocytes # (Auto) 0.6x10^3/uL (0.0-1.1) 0.6x10^3/uL (0.0-1.1) 0.8x10^3/uL (0.0-1.1) Eosinophils # (Auto) 0.0x10^3/uL (0.0-0.7) 0.0x10^3/uL (0.0-0.7) 0.0x10^3/uL (0.0-0.7) Basophils # (Auto) 0.0x10^3/uL (0.0-0.2) 0.0x10^3/uL (0.0-0.2) 0.0x10^3/uL (0.0-0.2) Sodium Level 137mmol/L (136-145) 141mmol/L (136-145) 142mmol/L (136-145) Potassium Level 4.0mmol/L (3.5-5.1) 3.4mmol/L (3.5-5.1) 4.1mmol/L (3.5-5.1) Chloride Level 105mmol/L (98-107) 106mmol/L (98-107) 107mmol/L (98-107) Carbon Dioxide Level 28mmol/L (21-32) 30mmol/L (21-32) 28mmol/L (21-32) Anion Gap 4 (6-14) 5 (6-14) 7 (6-14) Blood Urea Nitrogen 22mg/dL (7-20) 21mg/dL (7-20) 24mg/dL (7-20) Creatinine 1.0mg/dL (0.6-1.0) 0.9mg/dL (0.6-1.0) 0.9mg/dL (0.6-1.0) Estimated GFR (Cockcroft-Gault) 53.5 60.4 60.4 Glucose Level 107mg/dL (70-99) 84mg/dL (70-99) 115mg/dL (70-99) Calcium Level 8.4mg/dL (8.5-10.1) 8.3mg/dL (8.5-10.1) 8.3mg/dL (8.5-10.1) Laboratory Tests Test 12/14/16 04:17 12/14/16 04:27 White Blood Count 6.8x10^3/uL (4.0-11.0) Red Blood Count 4.07x10^6/uL (3.50-5.40) Hemoglobin 10.9g/dL (12.0-15.5) Hematocrit 33.0% (36.0-47.0) Mean Corpuscular Volume 81fL (79-100) Mean Corpuscular Hemoglobin 27pg (25-35) Mean Corpuscular Hemoglobin Concent 33g/dL (31-37) Red Cell Distribution Width 18.3% (11.5-14.5) Platelet Count 254x10^3/uL (140-400) Neutrophils (%) (Auto) 80% (31-73) Lymphocytes (%) (Auto) 9% (24-48) Monocytes (%) (Auto) 11% (0-9) Eosinophils (%) (Auto) 0% (0-3) Basophils (%) (Auto) 0% (0-3) Neutrophils # (Auto) 5.4x10^3uL (1.8-7.7) Lymphocytes # (Auto) 0.6x10^3/uL (1.0-4.8) Monocytes # (Auto) 0.8x10^3/uL (0.0-1.1) Eosinophils # (Auto) 0.0x10^3/uL (0.0-0.7) Basophils # (Auto) 0.0x10^3/uL (0.0-0.2) Sodium Level 142mmol/L (136-145) Potassium Level 4.1mmol/L (3.5-5.1) Chloride Level 107mmol/L (98-107) Carbon Dioxide Level 28mmol/L (21-32) Anion Gap 7 (6-14) Blood Urea Nitrogen 24mg/dL (7-20) Creatinine 0.9mg/dL (0.6-1.0) Estimated GFR (Cockcroft-Gault) 60.4 Glucose Level 115mg/dL (70-99) Calcium Level 8.3mg/dL (8.5-10.1) Microbiology 12/07/16 Blood Culture - Final, Complete NO GROWTH AFTER 5 DAYS Medications Current Medications Albuterol/ Ipratropium 3 ml 3 ml 1X ONCE NEB Last administered on 12/07/16t 18: 26; Start 12/07/16 at 18:30; Stop 12/07/16 at 18:31; Status DC Piperacillin Sod/ Tazobactam Sod/ Sodium Chloride (Zosyn/Iv Sodium Chloride 0.9 % 100ml) 100 ml @ 200 mls/hr Q6HRS IV ; Start 12/08/16 at 00:00; Status UNV Vancomycin HCl (Vanco Per Pharmacy) 1 each PRN DAILY PRN MC SEE COMMENTS Last administered on 12/09/16 22:07; Start 12/07/16 at 20:00; Stop 12/10/16 at 13:08; Status DC Heparin Sodium (Porcine) 3600 unit 3,600 unit 1X ONCE IV Last administered on 12/07/16 20:17; Start 12/07/16 at 20:30; Stop 12/07/16 at 20:31; Status DC Heparin Sodium/ Dextrose 500 ml @ 0 mls/hr CONT PRN IV SEE I/O RECORD Last administered on 12/11/16 05:43; Start 12/07/16 at 20:00; Stop 12/11/16 at 12:34 ; Status DC Heparin Sodium (Porcine) 1500 unit 1,500 unit PRN Q6HRS PRN IV FOR UFH LEVEL LESS THAN 0.2; Start 12/07/16 at 20:00; Stop 12/11/16 at 12:32; Status DC Vancomycin HCl/ Sodium Chloride (Iv Sodium Chloride 0.9% 500ml Bag) 500 ml @ 250 mls/hr 1X ONCE IV Last administered on 12/07/16 20:30; Start 12/07/16 at 20 :30; Stop 12/07/16 at 22:29; Status DC Furosemide 20 mg 20 mg 1X ONCE IVP Last administered on 12/07/16 22:03; Start 12/07/16 at 20:45; Stop 12/07/16 at 20:46; Status DC Piperacillin Sod/ Tazobactam Sod 3.375 gm/Sodium Chloride 50 ml @ 100 mls/hr Q6HRS IV Last administered on 12/11/16 05:08; Start 12/07/16 at 23:00; Stop 10/17 at 12:03; Status DC Vancomycin HCl/ Sodium Chloride (Iv Sodium Chloride 0.9% 250ml) 250 ml @ 250 mls/hr Q24H IV Last administered on 12/09/16 22:50; Start 12/08/16 at 20:00; Stop 12/10/16 at 13:06; Status DC Vancomycin HCl 1 each 1X ONCE MC Last administered on 12/09/16 19:30; Start at 19:30; Stop 12/09/16 at 19:31; Status DC Ondansetron HCl (Zofran) 4 mg PRN Q8HRS PRN IV NAUSEA/VOMITING Last administered on 12/08/16 02:44; Start 12/07/16 at 22:15; Stop 12/08/16 at 22:14; Status DC Acetaminophen (Tylenol) 650 mg PRN Q4HRS PRN PO FEVER; Start 12/07/16 at 22:15; Stop 12/08/16 at 22:14; Status DC Nitroglycerin (Nitrostat) 0.4 mg PRN Q5MIN PRN SL CHEST PAIN; Start 12/07/16 at 22:15; Stop 12/08/16 at 22:14; Status DC Albuterol/ Ipratropium (Duoneb) 3 ml RTQID NEB Last administered on 12/09/16 11 :43; Start 12/08/16 at 08:00; Stop 12/09/16 at 07:59; Status DC Methylprednisolone Sodium Succinate (Solu-Medrol 40mg Vial) 40 mg Q8HRS IV ; Start 12/08/16 at 06:00; Stop 12/08/16 at 06:00; Status DC Oseltamivir Phosphate (Tamiflu) 75 mg BID PO Last administered on 12/12/16 21: 29; Start 12/08/16 at 09:00; Stop 12/12/16 at 23:59; Status DC Oseltamivir Phosphate (Tamiflu) 75 mg 1X ONCE PO Last administered on 00:33; Start 12/07/16 at 23:30; Stop 12/07/16 at 23:31; Status DC Atorvastatin Calcium (Lipitor) 20 mg QHS PO Last administered on 12/13/16 21: 52; Start 12/08/16 at 21:00 Clopidogrel Bisulfate (Plavix) 75 mg DAILY PO Last administered on 12/13/16 09 :30; Start 12/08/16 at 09:00 Hydroxychloroquine Sulfate (Plaquenil) 200 mg BID PO Last administered on 21:52; Start 12/08/16 at 09:00 Ibuprofen (Motrin) 200 mg PRN Q6HRS PRN PO INFLAMMATION; Start 12/08/16 at 06:00 ; Stop 12/09/16 at 15:16; Status DC Lisinopril (Prinivil) 10 mg DAILY PO Last administered on 12/09/16 09:32; Start 12/08/16 at 09:00; Stop 12/09/16 at 15:16; Status DC Loperamide HCl (Imodium) 2 mg PRN Q4HRS PRN PO DIARRHEA; Start 12/08/16 at 00:15 Losartan Potassium (Cozaar) 50 mg DAILY PO Last administered on 12/13/16 09:29 ; Start 12/08/16 at 09:00 Promethazine HCl (Phenergan) 12.5 mg PRN Q6HRS PRN PO NAUSEA/VOMITING Last administered on 12/12/16 10:57; Start 12/08/16 at 00:15 Pantoprazole Sodium (Protonix) 40 mg DAILYAC PO Last administered on 12/13/16 09:29; Start 12/08/16 at 07:30 Furosemide (Lasix) 20 mg DAILY PO Last administered on 12/13/16 09:30; Start 12/08/16 at 09:00 Info (Anti-Coagulation Monitoring By Pharmacy) 1 each PRN DAILY PRN MC SEE COMMENTS Last administered on 12/09/16 15:36; Start 12/08/16 at 09:30; Stop 12/11 at 12:35; Status DC Potassium Chloride (Klor-Con) 40 meq 1X ONCE PO Last administered on 12/08/16 13:15; Start 12/08/16 at 12:30; Stop 12/08/16 at 12:31; Status DC Methylprednisolone Sodium Succinate (Solu-Medrol 125mg Vial) 125 mg DAILY IV Last administered on 12/10/16 09:22; Start 12/08/16 at 13:30; Stop 12/10/16 at 13:06; Status DC Folic Acid (Folic Acid) 1 mg DAILY PO Last administered on 12/13/16 09:30; Start 12/09/16 at 09:00 Leflunomide (Arava) 10 mg DAILY PO Last administered on 12/13/16 09:29; Start 12/09/16 at 09:00 Levofloxacin (Levaquin) 250 mg DAILY PO Last administered on 12/11/16 10:04; Start 12/09/16 at 09:00; Stop 12/11/16 at 16:09; Status DC Prednisone (Prednisone) 10 mg DAILY PO Last administered on 12/09/16 09:34; Start 12/09/16 at 09:00; Stop 12/09/16 at 15:26; Status DC Sennosides (Senna) 8.6 mg DAILY PO Last administered on 12/11/16 10:04; Start 12/09/16 at 09:00 Tramadol HCl (Ultram) 50 mg PRN Q6HRS PO ; Start 12/08/16 at 15:00; Stop at 00:47; Status DC Albuterol Sulfate (Ventolin Neb Soln) 2.5 mg PRN Q6HRS PRN NEB SHORTNESS OF BREATH Last administered on 12/09/16 19:25; Start 12/08/16 at 15:00 Meloxicam (Mobic) 15 mg DAILY PO Last administered on 12/09/16 09:33; Start 12/09/16 at 09:00; Stop 12/09/16 at 15:16; Status DC Non-Formulary Medication 1 tab BID PO ; Start 12/08/16 at 21:00; Stop 12/08/16 at 21:00; Status DC Tramadol HCl (Ultram) 50 mg PRN Q6HRS PRN PO MODERATE PAIN Last administered on 12/11/16 21:04; Start 12/09/16 at 00:47 Furosemide (Lasix) 20 mg 1X PRN PRN IV Blood transfusion; Start 12/09/16 at 12: 30; Stop 12/10/16 at 12:29; Status DC Hydralazine HCl (Apresoline) 10 mg PRN Q4HRS PRN IVP ELEVATED BP, SEE COMMENTS ; Start 12/09/16 at 15:15 Prednisone (Prednisone) 20 mg DAILY PO Last administered on 12/13/16 09:30; Start 12/11/16 at 09:00 Metoprolol Succinate (Toprol Xl) 12.5 mg DAILYWSUP PO Last administered on 12/10 18:29; Start 12/10/16 at 17:00; Stop 12/11/16 at 14:38; Status DC Nystatin 1 ronnie 1 ronnie BID TP Last administered on 12/13/16 21:52; Start at 15:30 Magnesium Sulfate/ Dextrose (Magnesium Sulfate PREMIX 2GM) 50 ml @ 25 mls/hr 1X ONCE IV Last administered on 12/11/16 13:31; Start 12/11/16 at 11:00; Stop 12/11/16 at 12:59; Status DC Potassium Chloride (Klor-Con) 40 meq BID PO Last administered on 12/11/16 21: 03; Start 12/11/16 at 11:00; Stop 12/11/16 at 23:55; Status DC Amoxicillin/ Clavulanate Potassium (Augmentin 500/ 125mg) 1 tab BID PO Last administered on 12/13/16 21:52; Start 12/11/16 at 12:00 Aspirin (Ecotrin) 81 mg DAILYWBKFT PO Last administered on 12/13/16 09:30; Start 12/11/16 at 12:30 Metoprolol Succinate (Toprol Xl) 25 mg DAILYWSUP PO Last administered on 17:38; Start 12/11/16 at 17:00 Albuterol/ Ipratropium (Duoneb) 3 ml RTQID NEB Last administered on 12/14/16 06:08; Start 12/13/16 at 12:00 Budesonide (Pulmicort) 0.5 mg RTBID NEB Last administered on 12/14/16 06:08; Start 12/13/16 at 11:00 Potassium Chloride (Klor-Con) 40 meq 1X ONCE PO Last administered on 16:05; Start 12/13/16 at 13:30; Stop 12/13/16 at 13:31; Status DC Montelukast Sodium (Singulair) 10 mg QHS PO ; Start 12/14/16 at 21:00 Active Scripts Active Levaquin (Levofloxacin) 250 Mg Tablet 250 Mg PO DAILY Reported Senna Laxative (Sennosides) 8.6 Mg Tablet 8.6 Mg PO Tramadol Hcl 50 Mg Tablet 1 Tab PO PRN Q6HRS Proair Hfa Inhaler (Albuterol Sulfate) 8.5 Gm Hfa.aer.ad 1 Puff INH PRN Q6HRS PRN Meloxicam 15 Mg Tablet 1 Tab PO DAILY Prednisone 10 Mg Tablet 10 Mg PO DAILY Leflunomide 10 Mg Tablet 10 Mg PO Folic Acid 1 Mg Tablet 1 Tab PO DAILY Loperamide (Loperamide Hcl) 2 Mg Capsule 2 Mg PO PRN Q4HRS PRN Promethazine Hcl 12.5 Mg Tablet 12.5 Mg PO Q6H PRN Atorvastatin Calcium 20 Mg Tablet 20 Mg PO DAILY Clopidogrel (Clopidogrel Bisulfate) 75 Mg Tablet 75 Mg PO DAILY Losartan Potassium 50 Mg Tablet 50 Mg PO DAILY Ibuprofen 200 Mg Tablet 200 Mg PO Q6HRS PRN Nabumetone 500 Mg Tablet 1 Tab PO BID Lisinopril 10 Mg Tablet 10 Mg PO DAILY Omeprazole 40 Mg Capsule.dr 40 Mg PO DAILY Hydroxychloroquine Sulfate 200 Mg Tablet 1 Tab PO BID Vitals/I & O Vital Sign - Last 24 Hours 12/13/16 12/13/16 12/13/16 12/13/16 08:00 09:29 11:00 15:00 Temp 98.9 98.9 98.9 98.9 Pulse 74 78 Resp 18 18 B/P 128/68 113/63 114/56 Pulse Ox 94 95 O2 Delivery Room Air Room Air Room Air 12/13/16 12/13/16 12/13/16 12/13/16 16:21 17:38 19:30 20:00 Temp 97.8 97.8 Pulse 89 85 Resp 20 B/P 113/62 Pulse Ox 97 94 O2 Delivery Room Air Room Air Room Air 12/13/16 12/13/16 12/14/16 20:19 23:00 06:05 Temp 98.0 98.0 Pulse 73 Resp 20 B/P 113/62 Pulse Ox 98 94 98 O2 Delivery Room Air Room Air Room Air Intake and Output 12/13/16 12/13/16 12/14/16 15:00 23:00 07:00 Intake Total 250 ml 100 ml Output Total 400 ml 200 ml 0 ml Balance -400 ml 50 ml 100 ml KEYONA OCONNOR MD Dec 14, 2016 07:10
[2016-12-14] MEDS: SENNOSIDES 8.6 MG TABLET PO SCH (09:00)
[2016-12-14] MEDS: NYSTATIN TOPICAL POWDER 15GM BOTTLE. TP SCH ×2 (09:00→21:00)
[2016-12-14] MEDS: AMOXICILLIN/K CLAV 500/125MG TABLET. PO SCH ×2 (09:08→21:07)
[2016-12-14] MEDS: LEFLUNOMIDE 10 MG TABLET. PO SCH (09:08)
[2016-12-14] MEDS: ASPIRIN ENTERIC COATED 81 MG TABLET.DR. PO SCH (09:09)
[2016-12-14] MEDS: FOLIC ACID 1 MG TABLET PO SCH (09:09)
[2016-12-14] MEDS: PANTOPRAZOLE 40 MG TABLET. PO SCH (09:09)
[2016-12-14] MEDS: CLOPIDOGREL BISULFATE 75 MG TABLET PO SCH (09:09)
[2016-12-14] MEDS: PREDNISONE 20 MG TABLET PO SCH (09:09)
[2016-12-14] MEDS: HYDROXYCHLOROQUINE 200 MG TABLET PO SCH ×2 (09:09→21:07)
[2016-12-14] MEDS: FUROSEMIDE 20 MG TABLET PO SCH (09:09)
[2016-12-14] MEDS: LOSARTAN POTASSIUM 50 MG TABLET. PO SCH (09:11)
[2016-12-14 10:52] VITALS: BP 110/59
[2016-12-14 14:55] VITALS: BP 98/53
[2016-12-14] MEDS: METOPROLOL SUCC 24HR ER 25 MG TAB.ER.24H. PO SCH (17:00)
[2016-12-14 19:59] VITALS: BP 105/59
[2016-12-14] MEDS: ATORVASTATIN CALCIUM 20 MG TABLET PO SCH (21:07)
[2016-12-14] MEDS: MONTELUKAST SODIUM 10 MG TABLET. PO SCH (21:07)
[2016-12-14 23:59] VITALS: BP 116/56
[2016-12-15] VITALS (7 sets, daily range): BP systolic 85–127; BP diastolic 48–70
[2016-12-15 05:10] LABS: BASO % 0 % (0-3); EOS % 0 % (0-3); HEMATOCRIT 32.4 % (36.0-47.0); HEMOGLOBIN 10.7 g/dL (12.0-15.5); LYMPH # 0.6 x10^3/uL (1.0-4.8); LYMPH % 7 % (24-48); MEAN CORPUSCULAR HEMOGLOBIN 27 pg (25-35); MEAN CORPUSCULAR HGB CONC 33 g/dL (31-37); MEAN CORPUSCULAR VOLUME 81 fL (79-100); MONO % 12 % (0-9); NEUT % 80 % (31-73); PLATELET COUNT 256 x10^3/uL (140-400); RED BLOOD COUNT 3.99 x10^6/uL (3.50-5.40); RED CELL DISTRIBUTION WIDTH 18.3 % (11.5-14.5); WHITE BLOOD COUNT 8.5 x10^3/uL (4.0-11.0)
[2016-12-15 05:38] LABS: CALCIUM 8.2 mg/dL (8.5-10.1); GFR 53.5; POTASSIUM 4.1 mmol/L (3.5-5.1)
--- NOTE | 2016-12-15 07:14 | PDOC ---
PULMONARY PROGRESS NOTES Subjective sob better, is tired has mild cough, nasal congestion Vitals Vital Signs Date Time Temp Pulse Resp B/P Pulse Ox O2 Delivery O2 Flow Rate FiO2 12/15/16 03:55 97.5 68 18 110/59 94 Room Air 97.5 Comments ros otherwise neg General: Alert, No acute distress HEENT: Other (nc at perrl) Lungs: Wheezing, Crackles Cardiovascular: S1, S2 Abdomen: Soft, Non-tender, Other (no mass) Neuro Exam: Alert Extremities: No Edema Skin: Warm Labs Laboratory Tests Test 12/14/16 04:17 12/14/16 04:27 12/15/16 04:30 White Blood Count 6.8x10^3/uL (4.0-11.0) 8.5x10^3/uL (4.0-11.0) Red Blood Count 4.07x10^6/uL (3.50-5.40) 3.99x10^6/uL (3.50-5.40) Hemoglobin 10.9g/dL (12.0-15.5) 10.7g/dL (12.0-15.5) Hematocrit 33.0% (36.0-47.0) 32.4% (36.0-47.0) Mean Corpuscular Volume 81fL (79-100) 81fL (79-100) Mean Corpuscular Hemoglobin 27pg (25-35) 27pg (25-35) Mean Corpuscular Hemoglobin Concent 33g/dL (31-37) 33g/dL (31-37) Red Cell Distribution Width 18.3% (11.5-14.5) 18.3% (11.5-14.5) Platelet Count 254x10^3/uL (140-400) 256x10^3/uL (140-400) Neutrophils (%) (Auto) 80% (31-73) 80% (31-73) Lymphocytes (%) (Auto) 9% (24-48) 7% (24-48) Monocytes (%) (Auto) 11% (0-9) 12% (0-9) Eosinophils (%) (Auto) 0% (0-3) 0% (0-3) Basophils (%) (Auto) 0% (0-3) 0% (0-3) Neutrophils # (Auto) 5.4x10^3uL (1.8-7.7) 6.8x10^3uL (1.8-7.7) Lymphocytes # (Auto) 0.6x10^3/uL (1.0-4.8) 0.6x10^3/uL (1.0-4.8) Monocytes # (Auto) 0.8x10^3/uL (0.0-1.1) 1.1x10^3/uL (0.0-1.1) Eosinophils # (Auto) 0.0x10^3/uL (0.0-0.7) 0.0x10^3/uL (0.0-0.7) Basophils # (Auto) 0.0x10^3/uL (0.0-0.2) 0.0x10^3/uL (0.0-0.2) Sodium Level 142mmol/L (136-145) 141mmol/L (136-145) Potassium Level 4.1mmol/L (3.5-5.1) 4.1mmol/L (3.5-5.1) Chloride Level 107mmol/L (98-107) 106mmol/L (98-107) Carbon Dioxide Level 28mmol/L (21-32) 28mmol/L (21-32) Anion Gap 7 (6-14) 7 (6-14) Blood Urea Nitrogen 24mg/dL (7-20) 23mg/dL (7-20) Creatinine 0.9mg/dL (0.6-1.0) 1.0mg/dL (0.6-1.0) Estimated GFR (Cockcroft-Gault) 60.4 53.5 Glucose Level 115mg/dL (70-99) 138mg/dL (70-99) Calcium Level 8.3mg/dL (8.5-10.1) 8.2mg/dL (8.5-10.1) Laboratory Tests Test 12/15/16 04:30 White Blood Count 8.5x10^3/uL (4.0-11.0) Red Blood Count 3.99x10^6/uL (3.50-5.40) Hemoglobin 10.7g/dL (12.0-15.5) Hematocrit 32.4% (36.0-47.0) Mean Corpuscular Volume 81fL (79-100) Mean Corpuscular Hemoglobin 27pg (25-35) Mean Corpuscular Hemoglobin Concent 33g/dL (31-37) Red Cell Distribution Width 18.3% (11.5-14.5) Platelet Count 256x10^3/uL (140-400) Neutrophils (%) (Auto) 80% (31-73) Lymphocytes (%) (Auto) 7% (24-48) Monocytes (%) (Auto) 12% (0-9) Eosinophils (%) (Auto) 0% (0-3) Basophils (%) (Auto) 0% (0-3) Neutrophils # (Auto) 6.8x10^3uL (1.8-7.7) Lymphocytes # (Auto) 0.6x10^3/uL (1.0-4.8) Monocytes # (Auto) 1.1x10^3/uL (0.0-1.1) Eosinophils # (Auto) 0.0x10^3/uL (0.0-0.7) Basophils # (Auto) 0.0x10^3/uL (0.0-0.2) Sodium Level 141mmol/L (136-145) Potassium Level 4.1mmol/L (3.5-5.1) Chloride Level 106mmol/L (98-107) Carbon Dioxide Level 28mmol/L (21-32) Anion Gap 7 (6-14) Blood Urea Nitrogen 23mg/dL (7-20) Creatinine 1.0mg/dL (0.6-1.0) Estimated GFR (Cockcroft-Gault) 53.5 Glucose Level 138mg/dL (70-99) Calcium Level 8.2mg/dL (8.5-10.1) Medications Active Scripts Medications Dose Route/Sig Days Date Category Senna Laxative (Sennosides) 8.6 Mg Tablet 8.6 Mg PO 12/08/16 Reported Tramadol Hcl 50 Mg Tablet 1 Tab PO PRN Q6HRS 12/08/16 Reported Proair Hfa Inhaler (Albuterol Sulfate) 8.5 Gm Hfa.aer.ad 1 Puff INH PRN Q6HRS PRN 12/08/16 Reported Meloxicam 15 Mg Tablet 1 Tab PO DAILY 12/08/16 Reported Prednisone 10 Mg Tablet 10 Mg PO DAILY 12/08/16 Reported Leflunomide 10 Mg Tablet 10 Mg PO 12/08/16 Reported Folic Acid 1 Mg Tablet 1 Tab PO DAILY 12/08/16 Reported Levaquin (Levofloxacin) 250 Mg Tablet 250 Mg PO DAILY 06/29/15 Rx Loperamide (Loperamide Hcl) 2 Mg Capsule 2 Mg PO PRN Q4HRS PRN 06/26/15 Reported Promethazine Hcl 12.5 Mg Tablet 12.5 Mg PO Q6H PRN 06/26/15 Reported Atorvastatin Calcium 20 Mg Tablet 20 Mg PO DAILY 06/26/15 Reported Clopidogrel (Clopidogrel Bisulfate) 75 Mg Tablet 75 Mg PO DAILY 06/26/15 Reported Losartan Potassium 50 Mg Tablet 50 Mg PO DAILY 06/26/15 Reported Ibuprofen 200 Mg Tablet 200 Mg PO Q6HRS PRN 06/26/15 Reported Nabumetone 500 Mg Tablet 1 Tab PO BID 06/26/15 Reported Lisinopril 10 Mg Tablet 10 Mg PO DAILY 06/26/15 Reported Omeprazole 40 Mg Capsule.dr 40 Mg PO DAILY 06/26/15 Reported Hydroxychloroquine Sulfate 200 Mg Tablet 1 Tab PO BID 06/26/15 Reported Comments cxr reviewed, Impression: 1. Bilateral infiltrates. 2. Possible mediastinal adenopathy. Impression . 1. Acute respiratory failure secondary to influenza and underlying pulmonary fibrosis 2. Elevated troponin level, Cardiology following 3. Pulmonary fibrosis with acute exacerbation. 4. Secondary pulmonary Hypertension. 5. difficult to rule out pneumonia but clinically less likely 6. CMP (EF 35%) 7. wheezing, acute bronchospasm 8. allergic rhinitis 9. debility Plan . 1. 02 titration. 2. PO Augmentin. BC negative. 3. Cardiology recommendations. 4. PO steroids for fibrosis 5. Nebulized treatments to qid, pulmicort 6. DVT and GI prophylaxis. 7. singulair pt ot ok [facility] for d/c to [facility] d/w PCP SMILEY VALVERDE MD Dec 15, 2016 07:14
[2016-12-15] MEDS: PANTOPRAZOLE 40 MG TABLET. PO SCH (07:15)
[2016-12-15 07:23] LABS: PLT ESTIMATE ADEQUATE (ADEQUATE)
[2016-12-15] MEDS: IPRATRPIUM/ALBUTEROL 0.5/2.5MG 3 ML NEBU. NEB SCH ×4 (07:36→20:22)
[2016-12-15] MEDS: BUDESONIDE 0.5 MG/2 ML NEBU NEB SCH ×2 (07:36→20:22)
[2016-12-15] MEDS: NYSTATIN TOPICAL POWDER 15GM BOTTLE. TP SCH ×2 (09:00→21:00)
[2016-12-15] MEDS: SENNOSIDES 8.6 MG TABLET PO SCH (09:00)
[2016-12-15] MEDS: AMOXICILLIN/K CLAV 500/125MG TABLET. PO SCH ×2 (09:09→21:03)
[2016-12-15] MEDS: LOSARTAN POTASSIUM 50 MG TABLET. PO SCH (09:09)
[2016-12-15] MEDS: LEFLUNOMIDE 10 MG TABLET. PO SCH (09:09)
[2016-12-15] MEDS: FOLIC ACID 1 MG TABLET PO SCH (09:10)
[2016-12-15] MEDS: ASPIRIN ENTERIC COATED 81 MG TABLET.DR. PO SCH (09:10)
[2016-12-15] MEDS: HYDROXYCHLOROQUINE 200 MG TABLET PO SCH ×2 (09:10→21:03)
[2016-12-15] MEDS: FUROSEMIDE 20 MG TABLET PO SCH (09:10)
[2016-12-15] MEDS: PREDNISONE 20 MG TABLET PO SCH (09:10)
[2016-12-15] MEDS: CLOPIDOGREL BISULFATE 75 MG TABLET PO SCH (09:10)
--- NOTE | 2016-12-15 10:31 | PDOC ---
PROGRESS NOTES Chief Complaint Chief Complaint cc: sob A/P Respiratory failure - influenza, IPF and possible pneumonia and congestive heart failure NSTEMI Anemia acute on Chronic heart failure HTN HLP Mild hyperglycemia due to steroids. Anemia s/p 1 unit of PRBC Plan PO augment total 7 days. steroids taper periodic nebulization SNU placement pending. anticipated dc tomorrow. labs reviewed, Physically weak PT/OT History of Present Illness History of Present Illness sob better no chest pain no fevers no chills. Vitals Vitals Vital Signs Date Time Temp Pulse Resp B/P Pulse Ox O2 Delivery O2 Flow Rate FiO2 12/15/16 09:09 78 127/70 12/15/16 07:45 97.2 17 93 Room Air 97.2 Physical Exam General: Alert, Oriented X3, mild distress Heart: Regular rate, Normal S1, Other Lungs: Clear Abdomen: Normal bowel sounds, Soft Extremities: No clubbing, No cyanosis Labs LABS Laboratory Tests Test 12/15/16 04:30 White Blood Count 8.5x10^3/uL (4.0-11.0) Red Blood Count 3.99x10^6/uL (3.50-5.40) Hemoglobin 10.7g/dL (12.0-15.5) Hematocrit 32.4% (36.0-47.0) Mean Corpuscular Volume 81fL (79-100) Mean Corpuscular Hemoglobin 27pg (25-35) Mean Corpuscular Hemoglobin Concent 33g/dL (31-37) Red Cell Distribution Width 18.3% (11.5-14.5) Platelet Count 256x10^3/uL (140-400) Neutrophils (%) (Auto) 80% (31-73) Lymphocytes (%) (Auto) 7% (24-48) Monocytes (%) (Auto) 12% (0-9) Eosinophils (%) (Auto) 0% (0-3) Basophils (%) (Auto) 0% (0-3) Neutrophils # (Auto) 6.8x10^3uL (1.8-7.7) Lymphocytes # (Auto) 0.6x10^3/uL (1.0-4.8) Monocytes # (Auto) 1.1x10^3/uL (0.0-1.1) Eosinophils # (Auto) 0.0x10^3/uL (0.0-0.7) Basophils # (Auto) 0.0x10^3/uL (0.0-0.2) Segmented Neutrophils % 82% (35-66) Band Neutrophils % 1% (0-9) Lymphocytes % 8% (24-48) Monocytes % 9% (0-10) Platelet Estimate Adequate (ADEQUATE) Sodium Level 141mmol/L (136-145) Potassium Level 4.1mmol/L (3.5-5.1) Chloride Level 106mmol/L (98-107) Carbon Dioxide Level 28mmol/L (21-32) Anion Gap 7 (6-14) Blood Urea Nitrogen 23mg/dL (7-20) Creatinine 1.0mg/dL (0.6-1.0) Estimated GFR (Cockcroft-Gault) 53.5 Glucose Level 138mg/dL (70-99) Calcium Level 8.2mg/dL (8.5-10.1) Assessment and Plan Assessmemt and Plan Problems Medical Problems: (1) Elevated troponin Status: Acute (2) Idiopathic pulmonary fibrosis Status: Acute (3) Influenza Status: Acute (4) Non-STEMI (non-ST elevated myocardial infarction) Status: Acute Problems: Comment Review of Relevant I have reviewed the following items cony (where applicable) has been applied. Labs Laboratory Tests Test 12/14/16 04:17 12/14/16 04:27 12/15/16 04:30 White Blood Count 6.8x10^3/uL (4.0-11.0) 8.5x10^3/uL (4.0-11.0) Red Blood Count 4.07x10^6/uL (3.50-5.40) 3.99x10^6/uL (3.50-5.40) Hemoglobin 10.9g/dL (12.0-15.5) 10.7g/dL (12.0-15.5) Hematocrit 33.0% (36.0-47.0) 32.4% (36.0-47.0) Mean Corpuscular Volume 81fL (79-100) 81fL (79-100) Mean Corpuscular Hemoglobin 27pg (25-35) 27pg (25-35) Mean Corpuscular Hemoglobin Concent 33g/dL (31-37) 33g/dL (31-37) Red Cell Distribution Width 18.3% (11.5-14.5) 18.3% (11.5-14.5) Platelet Count 254x10^3/uL (140-400) 256x10^3/uL (140-400) Neutrophils (%) (Auto) 80% (31-73) 80% (31-73) Lymphocytes (%) (Auto) 9% (24-48) 7% (24-48) Monocytes (%) (Auto) 11% (0-9) 12% (0-9) Eosinophils (%) (Auto) 0% (0-3) 0% (0-3) Basophils (%) (Auto) 0% (0-3) 0% (0-3) Neutrophils # (Auto) 5.4x10^3uL (1.8-7.7) 6.8x10^3uL (1.8-7.7) Lymphocytes # (Auto) 0.6x10^3/uL (1.0-4.8) 0.6x10^3/uL (1.0-4.8) Monocytes # (Auto) 0.8x10^3/uL (0.0-1.1) 1.1x10^3/uL (0.0-1.1) Eosinophils # (Auto) 0.0x10^3/uL (0.0-0.7) 0.0x10^3/uL (0.0-0.7) Basophils # (Auto) 0.0x10^3/uL (0.0-0.2) 0.0x10^3/uL (0.0-0.2) Sodium Level 142mmol/L (136-145) 141mmol/L (136-145) Potassium Level 4.1mmol/L (3.5-5.1) 4.1mmol/L (3.5-5.1) Chloride Level 107mmol/L (98-107) 106mmol/L (98-107) Carbon Dioxide Level 28mmol/L (21-32) 28mmol/L (21-32) Anion Gap 7 (6-14) 7 (6-14) Blood Urea Nitrogen 24mg/dL (7-20) 23mg/dL (7-20) Creatinine 0.9mg/dL (0.6-1.0) 1.0mg/dL (0.6-1.0) Estimated GFR (Cockcroft-Gault) 60.4 53.5 Glucose Level 115mg/dL (70-99) 138mg/dL (70-99) Calcium Level 8.3mg/dL (8.5-10.1) 8.2mg/dL (8.5-10.1) Segmented Neutrophils % 82% (35-66) Band Neutrophils % 1% (0-9) Lymphocytes % 8% (24-48) Monocytes % 9% (0-10) Platelet Estimate Adequate (ADEQUATE) Laboratory Tests Test 12/15/16 04:30 White Blood Count 8.5x10^3/uL (4.0-11.0) Red Blood Count 3.99x10^6/uL (3.50-5.40) Hemoglobin 10.7g/dL (12.0-15.5) Hematocrit 32.4% (36.0-47.0) Mean Corpuscular Volume 81fL (79-100) Mean Corpuscular Hemoglobin 27pg (25-35) Mean Corpuscular Hemoglobin Concent 33g/dL (31-37) Red Cell Distribution Width 18.3% (11.5-14.5) Platelet Count 256x10^3/uL (140-400) Neutrophils (%) (Auto) 80% (31-73) Lymphocytes (%) (Auto) 7% (24-48) Monocytes (%) (Auto) 12% (0-9) Eosinophils (%) (Auto) 0% (0-3) Basophils (%) (Auto) 0% (0-3) Neutrophils # (Auto) 6.8x10^3uL (1.8-7.7) Lymphocytes # (Auto) 0.6x10^3/uL (1.0-4.8) Monocytes # (Auto) 1.1x10^3/uL (0.0-1.1) Eosinophils # (Auto) 0.0x10^3/uL (0.0-0.7) Basophils # (Auto) 0.0x10^3/uL (0.0-0.2) Segmented Neutrophils % 82% (35-66) Band Neutrophils % 1% (0-9) Lymphocytes % 8% (24-48) Monocytes % 9% (0-10) Platelet Estimate Adequate (ADEQUATE) Sodium Level 141mmol/L (136-145) Potassium Level 4.1mmol/L (3.5-5.1) Chloride Level 106mmol/L (98-107) Carbon Dioxide Level 28mmol/L (21-32) Anion Gap 7 (6-14) Blood Urea Nitrogen 23mg/dL (7-20) Creatinine 1.0mg/dL (0.6-1.0) Estimated GFR (Cockcroft-Gault) 53.5 Glucose Level 138mg/dL (70-99) Calcium Level 8.2mg/dL (8.5-10.1) Microbiology 12/07/16 Blood Culture - Final, Complete NO GROWTH AFTER 5 DAYS Medications Current Medications Albuterol/ Ipratropium 3 ml 3 ml 1X ONCE NEB Last administered on 12/07/16 18: 26; Start 12/07/16 at 18:30; Stop 12/07/16 at 18:31; Status DC Piperacillin Sod/ Tazobactam Sod/ Sodium Chloride (Zosyn/Iv Sodium Chloride 0.9 % 100ml) 100 ml @ 200 mls/hr Q6HRS IV ; Start 12/08/16 at 00:00; Status UNV Vancomycin HCl (Vanco Per Pharmacy) 1 each PRN DAILY PRN MC SEE COMMENTS Last administered on 12/09/16 22:07; Start 12/07/16 at 20:00; Stop 12/10/16 at 13:08; Status DC Heparin Sodium (Porcine) 3600 unit 3,600 unit 1X ONCE IV Last administered on 12/07/16 20:17; Start 12/07/16 at 20:30; Stop 12/07/16 at 20:31; Status DC Heparin Sodium/ Dextrose 500 ml @ 0 mls/hr CONT PRN IV SEE I/O RECORD Last administered on 12/11/16 05:43; Start 12/07/16 at 20:00; Stop 12/11/16 at 12:34 ; Status DC Heparin Sodium (Porcine) 1500 unit 1,500 unit PRN Q6HRS PRN IV FOR UFH LEVEL LESS THAN 0.2; Start 12/07/16 at 20:00; Stop 12/11/16 at 12:32; Status DC Vancomycin HCl/ Sodium Chloride (Iv Sodium Chloride 0.9% 500ml Bag) 500 ml @ 250 mls/hr 1X ONCE IV Last administered on 12/07/16 20:30; Start 12/07/16 at 20 :30; Stop 12/07/16 at 22:29; Status DC Furosemide 20 mg 20 mg 1X ONCE IVP Last administered on 12/07/16 22:03; Start 12/07/16 at 20:45; Stop 12/07/16 at 20:46; Status DC Piperacillin Sod/ Tazobactam Sod 3.375 gm/Sodium Chloride 50 ml @ 100 mls/hr Q6HRS IV Last administered on 12/11/16 05:08; Start 12/07/16 at 23:00; Stop 10/17 at 12:03; Status DC Vancomycin HCl/ Sodium Chloride (Iv Sodium Chloride 0.9% 250ml) 250 ml @ 250 mls/hr Q24H IV Last administered on 12/09/16 22:50; Start 12/08/16 at 20:00; Stop 12/10/16 at 13:06; Status DC Vancomycin HCl 1 each 1X ONCE MC Last administered on 12/09/16 19:30; Start at 19:30; Stop 12/09/16 at 19:31; Status DC Ondansetron HCl (Zofran) 4 mg PRN Q8HRS PRN IV NAUSEA/VOMITING Last administered on 12/08/16 02:44; Start 12/07/16 at 22:15; Stop 12/08/16 at 22:14; Status DC Acetaminophen (Tylenol) 650 mg PRN Q4HRS PRN PO FEVER; Start 12/07/16 at 22:15; Stop 12/08/16 at 22:14; Status DC Nitroglycerin (Nitrostat) 0.4 mg PRN Q5MIN PRN SL CHEST PAIN; Start 12/07/16 at 22:15; Stop 12/08/16 at 22:14; Status DC Albuterol/ Ipratropium (Duoneb) 3 ml RTQID NEB Last administered on 12/09/16 11 :43; Start 12/08/16 at 08:00; Stop 12/09/16 at 07:59; Status DC Methylprednisolone Sodium Succinate (Solu-Medrol 40mg Vial) 40 mg Q8HRS IV ; Start 12/08/16 at 06:00; Stop 12/08/16 at 06:00; Status DC Oseltamivir Phosphate (Tamiflu) 75 mg BID PO Last administered on 12/12/16 21: 29; Start 12/08/16 at 09:00; Stop 12/12/16 at 23:59; Status DC Oseltamivir Phosphate (Tamiflu) 75 mg 1X ONCE PO Last administered on 00:33; Start 12/07/16 at 23:30; Stop 12/07/16 at 23:31; Status DC Atorvastatin Calcium (Lipitor) 20 mg QHS PO Last administered on 12/14/16 21: 07; Start 12/08/16 at 21:00 Clopidogrel Bisulfate (Plavix) 75 mg DAILY PO Last administered on 12/15/16 09 :10; Start 12/08/16 at 09:00 Hydroxychloroquine Sulfate (Plaquenil) 200 mg BID PO Last administered on 09:10; Start 12/08/16 at 09:00 Ibuprofen (Motrin) 200 mg PRN Q6HRS PRN PO INFLAMMATION; Start 12/08/16 at 06:00 ; Stop 12/09/16 at 15:16; Status DC Lisinopril (Prinivil) 10 mg DAILY PO Last administered on 12/09/16 09:32; Start 12/08/16 at 09:00; Stop 12/09/16 at 15:16; Status DC Loperamide HCl (Imodium) 2 mg PRN Q4HRS PRN PO DIARRHEA; Start 12/08/16 at 00:15 Losartan Potassium (Cozaar) 50 mg DAILY PO Last administered on 12/15/16 09:09 ; Start 12/08/16 at 09:00 Promethazine HCl (Phenergan) 12.5 mg PRN Q6HRS PRN PO NAUSEA/VOMITING Last administered on 12/12/16 10:57; Start 12/08/16 at 00:15 Pantoprazole Sodium (Protonix) 40 mg DAILYAC PO Last administered on 12/15/16 07:15; Start 12/08/16 at 07:30 Furosemide (Lasix) 20 mg DAILY PO Last administered on 12/15/16 09:10; Start 12/08/16 at 09:00 Info (Anti-Coagulation Monitoring By Pharmacy) 1 each PRN DAILY PRN MC SEE COMMENTS Last administered on 12/09/16 15:36; Start 12/08/16 at 09:30; Stop 12/11 at 12:35; Status DC Potassium Chloride (Klor-Con) 40 meq 1X ONCE PO Last administered on 12/08/16 13:15; Start 12/08/16 at 12:30; Stop 12/08/16 at 12:31; Status DC Methylprednisolone Sodium Succinate (Solu-Medrol 125mg Vial) 125 mg DAILY IV Last administered on 12/10/16 09:22; Start 12/08/16 at 13:30; Stop 12/10/16 at 13:06; Status DC Folic Acid (Folic Acid) 1 mg DAILY PO Last administered on 12/15/16 09:10; Start 12/09/16 at 09:00 Leflunomide (Arava) 10 mg DAILY PO Last administered on 12/15/16 09:09; Start 12/09/16 at 09:00 Levofloxacin (Levaquin) 250 mg DAILY PO Last administered on 12/11/16 10:04; Start 12/09/16 at 09:00; Stop 12/11/16 at 16:09; Status DC Prednisone (Prednisone) 10 mg DAILY PO Last administered on 12/09/16 09:34; Start 12/09/16 at 09:00; Stop 12/09/16 at 15:26; Status DC Sennosides (Senna) 8.6 mg DAILY PO Last administered on 12/11/16 10:04; Start 12/09/16 at 09:00 Tramadol HCl (Ultram) 50 mg PRN Q6HRS PO ; Start 12/08/16 at 15:00; Stop at 00:47; Status DC Albuterol Sulfate (Ventolin Neb Soln) 2.5 mg PRN Q6HRS PRN NEB SHORTNESS OF BREATH Last administered on 12/09/16 19:25; Start 12/08/16 at 15:00 Meloxicam (Mobic) 15 mg DAILY PO Last administered on 12/09/16 09:33; Start 12/09/16 at 09:00; Stop 12/09/16 at 15:16; Status DC Non-Formulary Medication 1 tab BID PO ; Start 12/08/16 at 21:00; Stop 12/08/16 at 21:00; Status DC Tramadol HCl (Ultram) 50 mg PRN Q6HRS PRN PO MODERATE PAIN Last administered on 12/11/16 21:04; Start 12/09/16 at 00:47 Furosemide (Lasix) 20 mg 1X PRN PRN IV Blood transfusion; Start 12/09/16 at 12: 30; Stop 12/10/16 at 12:29; Status DC Hydralazine HCl (Apresoline) 10 mg PRN Q4HRS PRN IVP ELEVATED BP, SEE COMMENTS ; Start 12/09/16 at 15:15 Prednisone (Prednisone) 20 mg DAILY PO Last administered on 12/15/16 09:10; Start 12/11/16 at 09:00 Metoprolol Succinate (Toprol Xl) 12.5 mg DAILYWSUP PO Last administered on 12/10 18:29; Start 12/10/16 at 17:00; Stop 12/11/16 at 14:38; Status DC Nystatin 1 ronnie 1 ronnie BID TP Last administered on 12/13/16 21:52; Start at 15:30 Magnesium Sulfate/ Dextrose (Magnesium Sulfate PREMIX 2GM) 50 ml @ 25 mls/hr 1X ONCE IV Last administered on 12/11/16 13:31; Start 12/11/16 at 11:00; Stop 12/11/16 at 12:59; Status DC Potassium Chloride (Klor-Con) 40 meq BID PO Last administered on 12/11/16 21: 03; Start 12/11/16 at 11:00; Stop 12/11/16 at 23:55; Status DC Amoxicillin/ Clavulanate Potassium (Augmentin 500/ 125mg) 1 tab BID PO Last administered on 12/15/16 09:09; Start 12/11/16 at 12:00 Aspirin (Ecotrin) 81 mg DAILYWBKFT PO Last administered on 12/15/16 09:10; Start 12/11/16 at 12:30 Metoprolol Succinate (Toprol Xl) 25 mg DAILYWSUP PO Last administered on 17:38; Start 12/11/16 at 17:00 Albuterol/ Ipratropium (Duoneb) 3 ml RTQID NEB Last administered on 12/15/16 07:36; Start 12/13/16 at 12:00 Budesonide (Pulmicort) 0.5 mg RTBID NEB Last administered on 12/15/16 07:36; Start 12/13/16 at 11:00 Potassium Chloride (Klor-Con) 40 meq 1X ONCE PO Last administered on 16:05; Start 12/13/16 at 13:30; Stop 12/13/16 at 13:31; Status DC Montelukast Sodium (Singulair) 10 mg QHS PO Last administered on 12/14/16 21: 07; Start 12/14/16 at 21:00 Active Scripts Active Levaquin (Levofloxacin) 250 Mg Tablet 250 Mg PO DAILY Reported Senna Laxative (Sennosides) 8.6 Mg Tablet 8.6 Mg PO Tramadol Hcl 50 Mg Tablet 1 Tab PO PRN Q6HRS Proair Hfa Inhaler (Albuterol Sulfate) 8.5 Gm Hfa.aer.ad 1 Puff INH PRN Q6HRS PRN Meloxicam 15 Mg Tablet 1 Tab PO DAILY Prednisone 10 Mg Tablet 10 Mg PO DAILY Leflunomide 10 Mg Tablet 10 Mg PO Folic Acid 1 Mg Tablet 1 Tab PO DAILY Loperamide (Loperamide Hcl) 2 Mg Capsule 2 Mg PO PRN Q4HRS PRN Promethazine Hcl 12.5 Mg Tablet 12.5 Mg PO Q6H PRN Atorvastatin Calcium 20 Mg Tablet 20 Mg PO DAILY Clopidogrel (Clopidogrel Bisulfate) 75 Mg Tablet 75 Mg PO DAILY Losartan Potassium 50 Mg Tablet 50 Mg PO DAILY Ibuprofen 200 Mg Tablet 200 Mg PO Q6HRS PRN Nabumetone 500 Mg Tablet 1 Tab PO BID Lisinopril 10 Mg Tablet 10 Mg PO DAILY Omeprazole 40 Mg Capsule.dr 40 Mg PO DAILY Hydroxychloroquine Sulfate 200 Mg Tablet 1 Tab PO BID Vitals/I & O Vital Sign - Last 24 Hours 12/14/16 12/14/16 12/14/16 12/14/16 10:52 12:25 14:55 16:01 Temp 97.9 97.2 97.9 97.2 Pulse 79 85 Resp 18 18 B/P 110/59 98/53 Pulse Ox 95 99 95 O2 Delivery Room Air Room Air Room Air Room Air 12/14/16 12/14/16 12/14/16 12/14/16 17:00 18:17 19:52 19:59 Temp 98.2 98.2 Pulse 85 84 Resp 22 B/P 98/53 105/59 Pulse Ox 96 O2 Delivery Room Air Room Air 12/14/16 12/15/16 12/15/16 12/15/16 23:59 03:55 07:37 07:37 Temp 97.6 97.5 97.6 97.5 Pulse 73 68 Resp 16 18 B/P 116/56 110/59 Pulse Ox 95 94 97 97 O2 Delivery Room Air Room Air Room Air Room Air 12/15/16 12/15/16 07:45 09:09 Temp 97.2 97.2 Pulse 78 Resp 17 B/P 127/70 127/70 Pulse Ox 93 O2 Delivery Room Air Intake and Output 12/14/16 12/14/16 12/15/16 15:00 23:00 07:00 Intake Total 400 ml 200 ml Balance 400 ml 200 ml KEYONA OCONNOR MD Dec 15, 2016 10:31
[2016-12-15] MEDS: METOPROLOL SUCC 24HR ER 25 MG TAB.ER.24H. PO SCH (17:00)
[2016-12-15] MEDS: ATORVASTATIN CALCIUM 20 MG TABLET PO SCH (21:03)
[2016-12-15] MEDS: MONTELUKAST SODIUM 10 MG TABLET. PO SCH (21:04)
[2016-12-16 03:53] VITALS: BP 109/56
[2016-12-16] MEDS: BUDESONIDE 0.5 MG/2 ML NEBU NEB SCH ×2 (07:19→19:46)
[2016-12-16] MEDS: IPRATRPIUM/ALBUTEROL 0.5/2.5MG 3 ML NEBU. NEB SCH ×4 (07:19→19:46)
[2016-12-16 07:30] VITALS: BP 119/58
[2016-12-16] MEDS: PANTOPRAZOLE 40 MG TABLET. PO SCH (08:59)
[2016-12-16] MEDS: ASPIRIN ENTERIC COATED 81 MG TABLET.DR. PO SCH (08:59)
[2016-12-16] MEDS: NYSTATIN TOPICAL POWDER 15GM BOTTLE. TP SCH ×2 (09:00→20:46)
[2016-12-16] MEDS: AMOXICILLIN/K CLAV 500/125MG TABLET. PO SCH ×2 (09:00→20:46)
[2016-12-16] MEDS: LEFLUNOMIDE 10 MG TABLET. PO SCH (09:00)
[2016-12-16] MEDS: SENNOSIDES 8.6 MG TABLET PO SCH (09:00)
[2016-12-16] MEDS: LOSARTAN POTASSIUM 50 MG TABLET. PO SCH (09:01)
[2016-12-16] MEDS: HYDROXYCHLOROQUINE 200 MG TABLET PO SCH ×2 (09:01→20:46)
[2016-12-16] MEDS: FOLIC ACID 1 MG TABLET PO SCH (09:01)
[2016-12-16] MEDS: PREDNISONE 20 MG TABLET PO SCH (09:02)
[2016-12-16] MEDS: CLOPIDOGREL BISULFATE 75 MG TABLET PO SCH (09:02)
[2016-12-16] MEDS: FUROSEMIDE 20 MG TABLET PO SCH (09:03)
[2016-12-16 11:08] VITALS: BP 124/59
--- NOTE | 2016-12-16 12:08 | PDOC ---
PULMONARY PROGRESS NOTES Subjective sob better, Vitals Vital Signs Date Time Temp Pulse Resp B/P Pulse Ox O2 Delivery O2 Flow Rate FiO2 12/16/16 11:08 99 16 124/59 97 Room Air 12/16/16 07:30 97.5 97.5 Comments ros otherwise neg General: Alert, No acute distress HEENT: Other (nc at perrl) Lungs: Clear Cardiovascular: S1, S2 Abdomen: Soft, Non-tender, Other (no mass) Neuro Exam: Alert Extremities: No Edema Skin: Warm Labs Laboratory Tests Test 12/15/16 04:30 White Blood Count 8.5x10^3/uL (4.0-11.0) Red Blood Count 3.99x10^6/uL (3.50-5.40) Hemoglobin 10.7g/dL (12.0-15.5) Hematocrit 32.4% (36.0-47.0) Mean Corpuscular Volume 81fL (79-100) Mean Corpuscular Hemoglobin 27pg (25-35) Mean Corpuscular Hemoglobin Concent 33g/dL (31-37) Red Cell Distribution Width 18.3% (11.5-14.5) Platelet Count 256x10^3/uL (140-400) Neutrophils (%) (Auto) 80% (31-73) Lymphocytes (%) (Auto) 7% (24-48) Monocytes (%) (Auto) 12% (0-9) Eosinophils (%) (Auto) 0% (0-3) Basophils (%) (Auto) 0% (0-3) Neutrophils # (Auto) 6.8x10^3uL (1.8-7.7) Lymphocytes # (Auto) 0.6x10^3/uL (1.0-4.8) Monocytes # (Auto) 1.1x10^3/uL (0.0-1.1) Eosinophils # (Auto) 0.0x10^3/uL (0.0-0.7) Basophils # (Auto) 0.0x10^3/uL (0.0-0.2) Segmented Neutrophils % 82% (35-66) Band Neutrophils % 1% (0-9) Lymphocytes % 8% (24-48) Monocytes % 9% (0-10) Platelet Estimate Adequate (ADEQUATE) Sodium Level 141mmol/L (136-145) Potassium Level 4.1mmol/L (3.5-5.1) Chloride Level 106mmol/L (98-107) Carbon Dioxide Level 28mmol/L (21-32) Anion Gap 7 (6-14) Blood Urea Nitrogen 23mg/dL (7-20) Creatinine 1.0mg/dL (0.6-1.0) Estimated GFR (Cockcroft-Gault) 53.5 Glucose Level 138mg/dL (70-99) Calcium Level 8.2mg/dL (8.5-10.1) Medications Active Scripts Medications Dose Route/Sig Days Date Category Senna Laxative (Sennosides) 8.6 Mg Tablet 8.6 Mg PO 12/08/16 Reported Tramadol Hcl 50 Mg Tablet 1 Tab PO PRN Q6HRS 12/08/16 Reported Proair Hfa Inhaler (Albuterol Sulfate) 8.5 Gm Hfa.aer.ad 1 Puff INH PRN Q6HRS PRN 12/08/16 Reported Meloxicam 15 Mg Tablet 1 Tab PO DAILY 12/08/16 Reported Prednisone 10 Mg Tablet 10 Mg PO DAILY 12/08/16 Reported Leflunomide 10 Mg Tablet 10 Mg PO 12/08/16 Reported Folic Acid 1 Mg Tablet 1 Tab PO DAILY 12/08/16 Reported Levaquin (Levofloxacin) 250 Mg Tablet 250 Mg PO DAILY 06/29/15 Rx Loperamide (Loperamide Hcl) 2 Mg Capsule 2 Mg PO PRN Q4HRS PRN 06/26/15 Reported Promethazine Hcl 12.5 Mg Tablet 12.5 Mg PO Q6H PRN 06/26/15 Reported Atorvastatin Calcium 20 Mg Tablet 20 Mg PO DAILY 06/26/15 Reported Clopidogrel (Clopidogrel Bisulfate) 75 Mg Tablet 75 Mg PO DAILY 06/26/15 Reported Losartan Potassium 50 Mg Tablet 50 Mg PO DAILY 06/26/15 Reported Ibuprofen 200 Mg Tablet 200 Mg PO Q6HRS PRN 06/26/15 Reported Nabumetone 500 Mg Tablet 1 Tab PO BID 06/26/15 Reported Lisinopril 10 Mg Tablet 10 Mg PO DAILY 06/26/15 Reported Omeprazole 40 Mg Capsule.dr 40 Mg PO DAILY 06/26/15 Reported Hydroxychloroquine Sulfate 200 Mg Tablet 1 Tab PO BID 06/26/15 Reported Comments cxr reviewed, Impression: 1. Bilateral infiltrates. 2. Possible mediastinal adenopathy. Impression . 1. Acute respiratory failure secondary to influenza and underlying pulmonary fibrosis 2. Elevated troponin level, Cardiology following 3. Pulmonary fibrosis with acute exacerbation. 4. Secondary pulmonary Hypertension. 5. difficult to rule out pneumonia but clinically less likely 6. CMP (EF 35%) 7. wheezing, acute bronchospasm, improved 8. allergic rhinitis 9. debility Plan . 1. 02 titration. 2. PO Augmentin. BC negative. 3. Cardiology recommendations. 4. PO steroids for fibrosis 5. Nebulized treatments to qid, pulmicort 6. DVT and GI prophylaxis. 7. singulair ok [facility] for d/c to [facility] Zhu MD Dec 16, 2016 12:08
--- NOTE | 2016-12-16 12:20 | PDOC ---
PROGRESS NOTES Chief Complaint Chief Complaint shortness of breath - Respiratory failure 2/2 influenza, IPF and possible pneumonia and CHF - NSTEMI - acute on chronic heart failure - HTN - HLP - Anemia History of Present Illness History of Present Illness Patient sitting up in bed when evaluated this AM. Reports feeling better. SOA is improved. Denies chest pain, fevers, or chills. Vitals Vitals Vital Signs Date Time Temp Pulse Resp B/P Pulse Ox O2 Delivery O2 Flow Rate FiO2 12/16/16 11:08 99 16 124/59 97 Room Air 12/16/16 07:30 97.5 97.5 Physical Exam General: Alert, Oriented X3, mild distress Heart: Regular rate, Normal S1 Lungs: Clear Abdomen: Normal bowel sounds, Soft Extremities: No clubbing, No cyanosis Review of Systems Review of Systems Denies fever, chills, chest pain. Improved SOA. Assessment and Plan Assessmemt and Plan ASSESSMENT: - Respiratory failure 2/2 influenza, IPF and possible pneumonia and CHF - NSTEMI - acute on chronic heart failure - HTN - HLP - Anemia PLAN: - SNU placement pending; likely dc today. - cont PO augmentin - cont steroid taper - cont nebulization - repeat labs - PT/OT Problems: Comment Review of Relevant I have reviewed the following items cony (where applicable) has been applied. Labs Laboratory Tests Test 12/15/16 04:30 White Blood Count 8.5x10^3/uL (4.0-11.0) Red Blood Count 3.99x10^6/uL (3.50-5.40) Hemoglobin 10.7g/dL (12.0-15.5) Hematocrit 32.4% (36.0-47.0) Mean Corpuscular Volume 81fL (79-100) Mean Corpuscular Hemoglobin 27pg (25-35) Mean Corpuscular Hemoglobin Concent 33g/dL (31-37) Red Cell Distribution Width 18.3% (11.5-14.5) Platelet Count 256x10^3/uL (140-400) Neutrophils (%) (Auto) 80% (31-73) Lymphocytes (%) (Auto) 7% (24-48) Monocytes (%) (Auto) 12% (0-9) Eosinophils (%) (Auto) 0% (0-3) Basophils (%) (Auto) 0% (0-3) Neutrophils # (Auto) 6.8x10^3uL (1.8-7.7) Lymphocytes # (Auto) 0.6x10^3/uL (1.0-4.8) Monocytes # (Auto) 1.1x10^3/uL (0.0-1.1) Eosinophils # (Auto) 0.0x10^3/uL (0.0-0.7) Basophils # (Auto) 0.0x10^3/uL (0.0-0.2) Segmented Neutrophils % 82% (35-66) Band Neutrophils % 1% (0-9) Lymphocytes % 8% (24-48) Monocytes % 9% (0-10) Platelet Estimate Adequate (ADEQUATE) Sodium Level 141mmol/L (136-145) Potassium Level 4.1mmol/L (3.5-5.1) Chloride Level 106mmol/L (98-107) Carbon Dioxide Level 28mmol/L (21-32) Anion Gap 7 (6-14) Blood Urea Nitrogen 23mg/dL (7-20) Creatinine 1.0mg/dL (0.6-1.0) Estimated GFR (Cockcroft-Gault) 53.5 Glucose Level 138mg/dL (70-99) Calcium Level 8.2mg/dL (8.5-10.1) Microbiology 12/07/16 Blood Culture - Final, Complete NO GROWTH AFTER 5 DAYS Medications Current Medications Albuterol/ Ipratropium 3 ml 3 ml 1X ONCE NEB Last administered on 12/07/16 18: 26; Start 12/07/16 at 18:30; Stop 12/07/16 at 18:31; Status DC Piperacillin Sod/ Tazobactam Sod/ Sodium Chloride (Zosyn/Iv Sodium Chloride 0.9 % 100ml) 100 ml @ 200 mls/hr Q6HRS IV ; Start 12/08/16 at 00:00; Status UNV Vancomycin HCl (Vanco Per Pharmacy) 1 each PRN DAILY PRN MC SEE COMMENTS Last administered on 12/09/16 22:07; Start 12/07/16 at 20:00; Stop 12/10/16 at 13:08; Status DC Heparin Sodium (Porcine) 3600 unit 3,600 unit 1X ONCE IV Last administered on 12/07/16 20:17; Start 12/07/16 at 20:30; Stop 12/07/16 at 20:31; Status DC Heparin Sodium/ Dextrose 500 ml @ 0 mls/hr CONT PRN IV SEE I/O RECORD Last administered on 12/11/16 05:43; Start 12/07/16 at 20:00; Stop 12/11/16 at 12:34 ; Status DC Heparin Sodium (Porcine) 1500 unit 1,500 unit PRN Q6HRS PRN IV FOR UFH LEVEL LESS THAN 0.2; Start 12/07/16 at 20:00; Stop 12/11/16 at 12:32; Status DC Vancomycin HCl/ Sodium Chloride (Iv Sodium Chloride 0.9% 500ml Bag) 500 ml @ 250 mls/hr 1X ONCE IV Last administered on 12/07/16 20:30; Start 12/07/16 at 20 :30; Stop 12/07/16 at 22:29; Status DC Furosemide 20 mg 20 mg 1X ONCE IVP Last administered on 12/07/16 22:03; Start 12/07/16 at 20:45; Stop 12/07/16 at 20:46; Status DC Piperacillin Sod/ Tazobactam Sod 3.375 gm/Sodium Chloride 50 ml @ 100 mls/hr Q6HRS IV Last administered on 12/11/16 05:08; Start 12/07/16 at 23:00; Stop 10/17 at 12:03; Status DC Vancomycin HCl/ Sodium Chloride (Iv Sodium Chloride 0.9% 250ml) 250 ml @ 250 mls/hr Q24H IV Last administered on 12/09/16 22:50; Start 12/08/16 at 20:00; Stop 12/10/16 at 13:06; Status DC Vancomycin HCl 1 each 1X ONCE MC Last administered on 12/09/16 19:30; Start at 19:30; Stop 12/09/16 at 19:31; Status DC Ondansetron HCl (Zofran) 4 mg PRN Q8HRS PRN IV NAUSEA/VOMITING Last administered on 12/08/16 02:44; Start 12/07/16 at 22:15; Stop 12/08/16 at 22:14; Status DC Acetaminophen (Tylenol) 650 mg PRN Q4HRS PRN PO FEVER; Start 12/07/16 at 22:15; Stop 12/08/16 at 22:14; Status DC Nitroglycerin (Nitrostat) 0.4 mg PRN Q5MIN PRN SL CHEST PAIN; Start 12/07/16 at 22:15; Stop 12/08/16 at 22:14; Status DC Albuterol/ Ipratropium (Duoneb) 3 ml RTQID NEB Last administered on 12/09/16 11 :43; Start 12/08/16 at 08:00; Stop 12/09/16 at 07:59; Status DC Methylprednisolone Sodium Succinate (Solu-Medrol 40mg Vial) 40 mg Q8HRS IV ; Start 12/08/16 at 06:00; Stop 12/08/16 at 06:00; Status DC Oseltamivir Phosphate (Tamiflu) 75 mg BID PO Last administered on 12/12/16 21: 29; Start 12/08/16 at 09:00; Stop 12/12/16 at 23:59; Status DC Oseltamivir Phosphate (Tamiflu) 75 mg 1X ONCE PO Last administered on 00:33; Start 12/07/16 at 23:30; Stop 12/07/16 at 23:31; Status DC Atorvastatin Calcium (Lipitor) 20 mg QHS PO Last administered on 12/15/16 21: 03; Start 12/08/16 at 21:00 Clopidogrel Bisulfate (Plavix) 75 mg DAILY PO Last administered on 12/16/16 09 :02; Start 12/08/16 at 09:00 Hydroxychloroquine Sulfate (Plaquenil) 200 mg BID PO Last administered on 09:01; Start 12/08/16 at 09:00 Ibuprofen (Motrin) 200 mg PRN Q6HRS PRN PO INFLAMMATION; Start 12/08/16 at 06:00 ; Stop 12/09/16 at 15:16; Status DC Lisinopril (Prinivil) 10 mg DAILY PO Last administered on 12/09/16 09:32; Start 12/08/16 at 09:00; Stop 12/09/16 at 15:16; Status DC Loperamide HCl (Imodium) 2 mg PRN Q4HRS PRN PO DIARRHEA; Start 12/08/16 at 00:15 Losartan Potassium (Cozaar) 50 mg DAILY PO Last administered on 12/16/16 09:01 ; Start 12/08/16 at 09:00 Promethazine HCl (Phenergan) 12.5 mg PRN Q6HRS PRN PO NAUSEA/VOMITING Last administered on 12/12/16 10:57; Start 12/08/16 at 00:15 Pantoprazole Sodium (Protonix) 40 mg DAILYAC PO Last administered on 12/16/16 08:59; Start 12/08/16 at 07:30 Furosemide (Lasix) 20 mg DAILY PO Last administered on 12/16/16 09:03; Start 12/08/16 at 09:00 Info (Anti-Coagulation Monitoring By Pharmacy) 1 each PRN DAILY PRN MC SEE COMMENTS Last administered on 12/09/16 15:36; Start 12/08/16 at 09:30; Stop 12/11 at 12:35; Status DC Potassium Chloride (Klor-Con) 40 meq 1X ONCE PO Last administered on 12/08/16 13:15; Start 12/08/16 at 12:30; Stop 12/08/16 at 12:31; Status DC Methylprednisolone Sodium Succinate (Solu-Medrol 125mg Vial) 125 mg DAILY IV Last administered on 12/10/16 09:22; Start 12/08/16 at 13:30; Stop 12/10/16 at 13:06; Status DC Folic Acid (Folic Acid) 1 mg DAILY PO Last administered on 12/16/16 09:01; Start 12/09/16 at 09:00 Leflunomide (Arava) 10 mg DAILY PO Last administered on 12/16/16 09:00; Start 12/09/16 at 09:00 Levofloxacin (Levaquin) 250 mg DAILY PO Last administered on 12/11/16 10:04; Start 12/09/16 at 09:00; Stop 12/11/16 at 16:09; Status DC Prednisone (Prednisone) 10 mg DAILY PO Last administered on 12/09/16 09:34; Start 12/09/16 at 09:00; Stop 12/09/16 at 15:26; Status DC Sennosides (Senna) 8.6 mg DAILY PO Last administered on 12/11/16 10:04; Start 12/09/16 at 09:00 Tramadol HCl (Ultram) 50 mg PRN Q6HRS PO ; Start 12/08/16 at 15:00; Stop at 00:47; Status DC Albuterol Sulfate (Ventolin Neb Soln) 2.5 mg PRN Q6HRS PRN NEB SHORTNESS OF BREATH Last administered on 12/09/16 19:25; Start 12/08/16 at 15:00 Meloxicam (Mobic) 15 mg DAILY PO Last administered on 12/09/16 09:33; Start 12/09/16 at 09:00; Stop 12/09/16 at 15:16; Status DC Non-Formulary Medication 1 tab BID PO ; Start 12/08/16 at 21:00; Stop 12/08/16 at 21:00; Status DC Tramadol HCl (Ultram) 50 mg PRN Q6HRS PRN PO MODERATE PAIN Last administered on 12/11/16 21:04; Start 12/09/16 at 00:47 Furosemide (Lasix) 20 mg 1X PRN PRN IV Blood transfusion; Start 12/09/16 at 12: 30; Stop 12/10/16 at 12:29; Status DC Hydralazine HCl (Apresoline) 10 mg PRN Q4HRS PRN IVP ELEVATED BP, SEE COMMENTS ; Start 12/09/16 at 15:15 Prednisone (Prednisone) 20 mg DAILY PO Last administered on 12/16/16 09:02; Start 12/11/16 at 09:00 Metoprolol Succinate (Toprol Xl) 12.5 mg DAILYWSUP PO Last administered on 12/10 18:29; Start 12/10/16 at 17:00; Stop 12/11/16 at 14:38; Status DC Nystatin 1 ronnie 1 ronnie BID TP Last administered on 12/13/16 21:52; Start at 15:30 Magnesium Sulfate/ Dextrose (Magnesium Sulfate PREMIX 2GM) 50 ml @ 25 mls/hr 1X ONCE IV Last administered on 12/11/16 13:31; Start 12/11/16 at 11:00; Stop 12/11/16 at 12:59; Status DC Potassium Chloride (Klor-Con) 40 meq BID PO Last administered on 12/11/16 21: 03; Start 12/11/16 at 11:00; Stop 12/11/16 at 23:55; Status DC Amoxicillin/ Clavulanate Potassium (Augmentin 500/ 125mg) 1 tab BID PO Last administered on 12/16/16 09:00; Start 12/11/16 at 12:00 Aspirin (Ecotrin) 81 mg DAILYWBKFT PO Last administered on 12/16/16 08:59; Start 12/11/16 at 12:30 Metoprolol Succinate (Toprol Xl) 25 mg DAILYWSUP PO Last administered on 17:38; Start 12/11/16 at 17:00 Albuterol/ Ipratropium (Duoneb) 3 ml RTQID NEB Last administered on 12/16/16 07:19; Start 12/13/16 at 12:00 Budesonide (Pulmicort) 0.5 mg RTBID NEB Last administered on 12/16/16 07:19; Start 12/13/16 at 11:00 Potassium Chloride (Klor-Con) 40 meq 1X ONCE PO Last administered on 16:05; Start 12/13/16 at 13:30; Stop 12/13/16 at 13:31; Status DC Montelukast Sodium (Singulair) 10 mg QHS PO Last administered on 12/15/16 21: 04; Start 12/14/16 at 21:00 Active Scripts Active Levaquin (Levofloxacin) 250 Mg Tablet 250 Mg PO DAILY Reported Senna Laxative (Sennosides) 8.6 Mg Tablet 8.6 Mg PO Tramadol Hcl 50 Mg Tablet 1 Tab PO PRN Q6HRS Proair Hfa Inhaler (Albuterol Sulfate) 8.5 Gm Hfa.aer.ad 1 Puff INH PRN Q6HRS PRN Meloxicam 15 Mg Tablet 1 Tab PO DAILY Prednisone 10 Mg Tablet 10 Mg PO DAILY Leflunomide 10 Mg Tablet 10 Mg PO Folic Acid 1 Mg Tablet 1 Tab PO DAILY Loperamide (Loperamide Hcl) 2 Mg Capsule 2 Mg PO PRN Q4HRS PRN Promethazine Hcl 12.5 Mg Tablet 12.5 Mg PO Q6H PRN Atorvastatin Calcium 20 Mg Tablet 20 Mg PO DAILY Clopidogrel (Clopidogrel Bisulfate) 75 Mg Tablet 75 Mg PO DAILY Losartan Potassium 50 Mg Tablet 50 Mg PO DAILY Ibuprofen 200 Mg Tablet 200 Mg PO Q6HRS PRN Nabumetone 500 Mg Tablet 1 Tab PO BID Lisinopril 10 Mg Tablet 10 Mg PO DAILY Omeprazole 40 Mg Capsule.dr 40 Mg PO DAILY Hydroxychloroquine Sulfate 200 Mg Tablet 1 Tab PO BID Vitals/I & O Vital Sign - Last 24 Hours 12/15/16 12/15/16 12/15/16 12/15/16 15:59 16:06 17:00 17:00 Pulse 88 100 100 Resp 22 B/P 85/48 90/53 90/53 Pulse Ox 89 O2 Delivery Room Air Room Air 12/15/16 12/15/16 12/15/16 12/15/16 19:35 19:41 20:23 20:23 Temp 97.9 97.9 Pulse 104 Resp 20 B/P 98/55 Pulse Ox 95 O2 Delivery Room Air Room Air Room Air Room Air 12/15/16 12/16/16 12/16/16 12/16/16 22:59 03:53 07:21 07:23 Temp 97.3 97.7 97.3 97.7 Pulse 82 72 Resp 14 18 B/P 93/50 109/56 Pulse Ox 95 94 94 94 O2 Delivery Room Air Room Air Room Air Room Air 12/16/16 12/16/16 12/16/16 07:30 09:01 11:08 Temp 97.5 97.5 Pulse 87 87 99 Resp 19 16 B/P 119/58 119/58 124/59 Pulse Ox 95 97 O2 Delivery Room Air Room Air Intake and Output 12/15/16 12/15/16 12/16/16 15:00 23:00 07:00 Intake Total 850 ml 200 ml Output Total 440 ml Balance -440 ml 850 ml 200 ml ASIM,NIAL K III DO Dec 16, 2016 12:20
[2016-12-16 15:30] VITALS: BP 117/58
[2016-12-16] MEDS: METOPROLOL SUCC 24HR ER 25 MG TAB.ER.24H. PO SCH (17:33)
[2016-12-16 19:25] VITALS: BP 106/57
[2016-12-16] MEDS: MONTELUKAST SODIUM 10 MG TABLET. PO SCH (20:46)
[2016-12-16] MEDS: ATORVASTATIN CALCIUM 20 MG TABLET PO SCH (20:46)
[2016-12-16 23:30] VITALS: BP 107/59
[2016-12-17 03:44] VITALS: BP 132/69
[2016-12-17 04:58] LABS: BASO % 1 % (0-3); EOS % 0 % (0-3); HEMATOCRIT 34.9 % (36.0-47.0); HEMOGLOBIN 11.2 g/dL (12.0-15.5); LYMPH # 0.7 x10^3/uL (1.0-4.8); LYMPH % 8 % (24-48); MEAN CORPUSCULAR HEMOGLOBIN 27 pg (25-35); MEAN CORPUSCULAR HGB CONC 32 g/dL (31-37); MEAN CORPUSCULAR VOLUME 84 fL (79-100); MONO % 11 % (0-9); NEUT % 81 % (31-73); PLATELET COUNT 269 x10^3/uL (140-400); RED BLOOD COUNT 4.17 x10^6/uL (3.50-5.40); RED CELL DISTRIBUTION WIDTH 18.8 % (11.5-14.5)
[2016-12-17 05:18] LABS: CALCIUM 8.8 mg/dL (8.5-10.1); CREATININE 1.2 mg/dL (0.6-1.0); GFR 43.3; POTASSIUM 4.2 mmol/L (3.5-5.1)
[2016-12-17] MEDS: IPRATRPIUM/ALBUTEROL 0.5/2.5MG 3 ML NEBU. NEB SCH ×2 (07:44→12:00)
[2016-12-17] MEDS: BUDESONIDE 0.5 MG/2 ML NEBU NEB SCH (07:44)
[2016-12-17 07:45] VITALS: BP 132/62
[2016-12-17] MEDS: SENNOSIDES 8.6 MG TABLET PO SCH (09:00)
[2016-12-17] MEDS: NYSTATIN TOPICAL POWDER 15GM BOTTLE. TP SCH (09:00)
[2016-12-17] MEDS: CLOPIDOGREL BISULFATE 75 MG TABLET PO SCH (10:06)
[2016-12-17] MEDS: FOLIC ACID 1 MG TABLET PO SCH (10:06)
[2016-12-17] MEDS: ASPIRIN ENTERIC COATED 81 MG TABLET.DR. PO SCH (10:06)
[2016-12-17] MEDS: PREDNISONE 20 MG TABLET PO SCH (10:06)
[2016-12-17] MEDS: AMOXICILLIN/K CLAV 500/125MG TABLET. PO SCH (10:07)
[2016-12-17] MEDS: PANTOPRAZOLE 40 MG TABLET. PO SCH (10:07)
[2016-12-17] MEDS: LEFLUNOMIDE 10 MG TABLET. PO SCH (10:07)
[2016-12-17] MEDS: FUROSEMIDE 20 MG TABLET PO SCH (10:07)
[2016-12-17] MEDS: HYDROXYCHLOROQUINE 200 MG TABLET PO SCH (10:07)
[2016-12-17] MEDS: LOSARTAN POTASSIUM 50 MG TABLET. PO SCH (10:08)
[2016-12-17 10:17] VITALS: BP 116/68
--- NOTE | 2016-12-17 12:01 | PDOC ---
PROGRESS NOTES Chief Complaint Chief Complaint shortness of breath - Respiratory failure 2/2 influenza, IPF and possible pneumonia and CHF - NSTEMI - acute on chronic heart failure - HTN - HLP - Anemia History of Present Illness History of Present Illness Patient sitting up in bed when evaluated this AM. Feeling relatively well. SOA still improved. Continues to deny chest pain, fevers, or chills. Agreeable with plan to discharge to [facility] longterm. Vitals Vitals Vital Signs Date Time Temp Pulse Resp B/P Pulse Ox O2 Delivery O2 Flow Rate FiO2 12/17/16 10:17 98.0 18 116/68 96 Room Air 98.0 12/17/16 10:08 59 12/16/16 15:30 2.0 Physical Exam General: Alert, Oriented X3, mild distress Heart: Regular rate, Normal S1 Lungs: Clear Abdomen: Normal bowel sounds, Soft Extremities: No clubbing, No cyanosis Skin: No significant lesion Labs LABS Laboratory Tests Test 12/17/16 03:50 White Blood Count 9.0x10^3/uL (4.0-11.0) Red Blood Count 4.17x10^6/uL (3.50-5.40) Hemoglobin 11.2g/dL (12.0-15.5) Hematocrit 34.9% (36.0-47.0) Mean Corpuscular Volume 84fL (79-100) Mean Corpuscular Hemoglobin 27pg (25-35) Mean Corpuscular Hemoglobin Concent 32g/dL (31-37) Red Cell Distribution Width 18.8% (11.5-14.5) Platelet Count 269x10^3/uL (140-400) Neutrophils (%) (Auto) 81% (31-73) Lymphocytes (%) (Auto) 8% (24-48) Monocytes (%) (Auto) 11% (0-9) Eosinophils (%) (Auto) 0% (0-3) Basophils (%) (Auto) 1% (0-3) Neutrophils # (Auto) 7.3x10^3uL (1.8-7.7) Lymphocytes # (Auto) 0.7x10^3/uL (1.0-4.8) Monocytes # (Auto) 1.0x10^3/uL (0.0-1.1) Eosinophils # (Auto) 0.0x10^3/uL (0.0-0.7) Basophils # (Auto) 0.0x10^3/uL (0.0-0.2) Sodium Level 140mmol/L (136-145) Potassium Level 4.2mmol/L (3.5-5.1) Chloride Level 104mmol/L (98-107) Carbon Dioxide Level 28mmol/L (21-32) Anion Gap 8 (6-14) Blood Urea Nitrogen 27mg/dL (7-20) Creatinine 1.2mg/dL (0.6-1.0) Estimated GFR (Cockcroft-Gault) 43.3 Glucose Level 110mg/dL (70-99) Calcium Level 8.8mg/dL (8.5-10.1) Review of Systems Review of Systems denies fever/chills denies chest pain, SOA Assessment and Plan Assessmemt and Plan ASSESSMENT: - Respiratory failure 2/2 influenza, IPF and possible pneumonia and CHF - NSTEMI - acute on chronic heart failure - HTN - HLP - Anemia PLAN: - discharge today to [facility]; [facility]. - cont PO augmentin - cont steroid taper - appreciate subspecialty input - pt agreeable to plan Problems: Comment Review of Relevant I have reviewed the following items cony (where applicable) has been applied. Labs Laboratory Tests Test 12/17/16 03:50 White Blood Count 9.0x10^3/uL (4.0-11.0) Red Blood Count 4.17x10^6/uL (3.50-5.40) Hemoglobin 11.2g/dL (12.0-15.5) Hematocrit 34.9% (36.0-47.0) Mean Corpuscular Volume 84fL (79-100) Mean Corpuscular Hemoglobin 27pg (25-35) Mean Corpuscular Hemoglobin Concent 32g/dL (31-37) Red Cell Distribution Width 18.8% (11.5-14.5) Platelet Count 269x10^3/uL (140-400) Neutrophils (%) (Auto) 81% (31-73) Lymphocytes (%) (Auto) 8% (24-48) Monocytes (%) (Auto) 11% (0-9) Eosinophils (%) (Auto) 0% (0-3) Basophils (%) (Auto) 1% (0-3) Neutrophils # (Auto) 7.3x10^3uL (1.8-7.7) Lymphocytes # (Auto) 0.7x10^3/uL (1.0-4.8) Monocytes # (Auto) 1.0x10^3/uL (0.0-1.1) Eosinophils # (Auto) 0.0x10^3/uL (0.0-0.7) Basophils # (Auto) 0.0x10^3/uL (0.0-0.2) Sodium Level 140mmol/L (136-145) Potassium Level 4.2mmol/L (3.5-5.1) Chloride Level 104mmol/L (98-107) Carbon Dioxide Level 28mmol/L (21-32) Anion Gap 8 (6-14) Blood Urea Nitrogen 27mg/dL (7-20) Creatinine 1.2mg/dL (0.6-1.0) Estimated GFR (Cockcroft-Gault) 43.3 Glucose Level 110mg/dL (70-99) Calcium Level 8.8mg/dL (8.5-10.1) Laboratory Tests Test 12/17/16 03:50 White Blood Count 9.0x10^3/uL (4.0-11.0) Red Blood Count 4.17x10^6/uL (3.50-5.40) Hemoglobin 11.2g/dL (12.0-15.5) Hematocrit 34.9% (36.0-47.0) Mean Corpuscular Volume 84fL (79-100) Mean Corpuscular Hemoglobin 27pg (25-35) Mean Corpuscular Hemoglobin Concent 32g/dL (31-37) Red Cell Distribution Width 18.8% (11.5-14.5) Platelet Count 269x10^3/uL (140-400) Neutrophils (%) (Auto) 81% (31-73) Lymphocytes (%) (Auto) 8% (24-48) Monocytes (%) (Auto) 11% (0-9) Eosinophils (%) (Auto) 0% (0-3) Basophils (%) (Auto) 1% (0-3) Neutrophils # (Auto) 7.3x10^3uL (1.8-7.7) Lymphocytes # (Auto) 0.7x10^3/uL (1.0-4.8) Monocytes # (Auto) 1.0x10^3/uL (0.0-1.1) Eosinophils # (Auto) 0.0x10^3/uL (0.0-0.7) Basophils # (Auto) 0.0x10^3/uL (0.0-0.2) Sodium Level 140mmol/L (136-145) Potassium Level 4.2mmol/L (3.5-5.1) Chloride Level 104mmol/L (98-107) Carbon Dioxide Level 28mmol/L (21-32) Anion Gap 8 (6-14) Blood Urea Nitrogen 27mg/dL (7-20) Creatinine 1.2mg/dL (0.6-1.0) Estimated GFR (Cockcroft-Gault) 43.3 Glucose Level 110mg/dL (70-99) Calcium Level 8.8mg/dL (8.5-10.1) Microbiology 12/07/16 Blood Culture - Final, Complete NO GROWTH AFTER 5 DAYS Medications Current Medications Albuterol/ Ipratropium 3 ml 3 ml 1X ONCE NEB Last administered on 12/07/16 18: 26; Start 12/07/16 at 18:30; Stop 12/07/16 at 18:31; Status DC Piperacillin Sod/ Tazobactam Sod/ Sodium Chloride (Zosyn/Iv Sodium Chloride 0.9 % 100ml) 100 ml @ 200 mls/hr Q6HRS IV ; Start 12/08/16 at 00:00; Status UNV Vancomycin HCl (Vanco Per Pharmacy) 1 each PRN DAILY PRN MC SEE COMMENTS Last administered on 12/09/16 22:07; Start 12/07/16 at 20:00; Stop 12/10/16 at 13:08; Status DC Heparin Sodium (Porcine) 3600 unit 3,600 unit 1X ONCE IV Last administered on 12/07/16 20:17; Start 12/07/16 at 20:30; Stop 12/07/16 at 20:31; Status DC Heparin Sodium/ Dextrose 500 ml @ 0 mls/hr CONT PRN IV SEE I/O RECORD Last administered on 12/11/16 05:43; Start 12/07/16 at 20:00; Stop 12/11/16 at 12:34 ; Status DC Heparin Sodium (Porcine) 1500 unit 1,500 unit PRN Q6HRS PRN IV FOR UFH LEVEL LESS THAN 0.2; Start 12/07/16 at 20:00; Stop 12/11/16 at 12:32; Status DC Vancomycin HCl/ Sodium Chloride (Iv Sodium Chloride 0.9% 500ml Bag) 500 ml @ 250 mls/hr 1X ONCE IV Last administered on 12/07/16 20:30; Start 12/07/16 at 20 :30; Stop 12/07/16 at 22:29; Status DC Furosemide 20 mg 20 mg 1X ONCE IVP Last administered on 12/07/16 22:03; Start 12/07/16 at 20:45; Stop 12/07/16 at 20:46; Status DC Piperacillin Sod/ Tazobactam Sod 3.375 gm/Sodium Chloride 50 ml @ 100 mls/hr Q6HRS IV Last administered on 12/11/16 05:08; Start 12/07/16 at 23:00; Stop 10/17 at 12:03; Status DC Vancomycin HCl/ Sodium Chloride (Iv Sodium Chloride 0.9% 250ml) 250 ml @ 250 mls/hr Q24H IV Last administered on 12/09/16 22:50; Start 12/08/16 at 20:00; Stop 12/10/16 at 13:06; Status DC Vancomycin HCl 1 each 1X ONCE MC Last administered on 12/09/16 19:30; Start at 19:30; Stop 12/09/16 at 19:31; Status DC Ondansetron HCl (Zofran) 4 mg PRN Q8HRS PRN IV NAUSEA/VOMITING Last administered on 12/08/16 02:44; Start 12/07/16 at 22:15; Stop 12/08/16 at 22:14; Status DC Acetaminophen (Tylenol) 650 mg PRN Q4HRS PRN PO FEVER; Start 12/07/16 at 22:15; Stop 12/08/16 at 22:14; Status DC Nitroglycerin (Nitrostat) 0.4 mg PRN Q5MIN PRN SL CHEST PAIN; Start 12/07/16 at 22:15; Stop 12/08/16 at 22:14; Status DC Albuterol/ Ipratropium (Duoneb) 3 ml RTQID NEB Last administered on 12/09/16 11 :43; Start 12/08/16 at 08:00; Stop 12/09/16 at 07:59; Status DC Methylprednisolone Sodium Succinate (Solu-Medrol 40mg Vial) 40 mg Q8HRS IV ; Start 12/08/16 at 06:00; Stop 12/08/16 at 06:00; Status DC Oseltamivir Phosphate (Tamiflu) 75 mg BID PO Last administered on 12/12/16 21: 29; Start 12/08/16 at 09:00; Stop 12/12/16 at 23:59; Status DC Oseltamivir Phosphate (Tamiflu) 75 mg 1X ONCE PO Last administered on 00:33; Start 12/07/16 at 23:30; Stop 12/07/16 at 23:31; Status DC Atorvastatin Calcium (Lipitor) 20 mg QHS PO Last administered on 12/16/16 20: 46; Start 12/08/16 at 21:00 Clopidogrel Bisulfate (Plavix) 75 mg DAILY PO Last administered on 12/17/16 10 :06; Start 12/08/16 at 09:00 Hydroxychloroquine Sulfate (Plaquenil) 200 mg BID PO Last administered on 10:07; Start 12/08/16 at 09:00 Ibuprofen (Motrin) 200 mg PRN Q6HRS PRN PO INFLAMMATION; Start 12/08/16 at 06:00 ; Stop 12/09/16 at 15:16; Status DC Lisinopril (Prinivil) 10 mg DAILY PO Last administered on 12/09/16 09:32; Start 12/08/16 at 09:00; Stop 12/09/16 at 15:16; Status DC Loperamide HCl (Imodium) 2 mg PRN Q4HRS PRN PO DIARRHEA; Start 12/08/16 at 00:15 Losartan Potassium (Cozaar) 50 mg DAILY PO Last administered on 12/17/16 10:08 ; Start 12/08/16 at 09:00 Promethazine HCl (Phenergan) 12.5 mg PRN Q6HRS PRN PO NAUSEA/VOMITING Last administered on 12/12/16 10:57; Start 12/08/16 at 00:15 Pantoprazole Sodium (Protonix) 40 mg DAILYAC PO Last administered on 12/17/16 10:07; Start 12/08/16 at 07:30 Furosemide (Lasix) 20 mg DAILY PO Last administered on 12/17/16 10:07; Start 12/08/16 at 09:00 Info (Anti-Coagulation Monitoring By Pharmacy) 1 each PRN DAILY PRN MC SEE COMMENTS Last administered on 12/09/16 15:36; Start 12/08/16 at 09:30; Stop 12/11 at 12:35; Status DC Potassium Chloride (Klor-Con) 40 meq 1X ONCE PO Last administered on 12/08/16 13:15; Start 12/08/16 at 12:30; Stop 12/08/16 at 12:31; Status DC Methylprednisolone Sodium Succinate (Solu-Medrol 125mg Vial) 125 mg DAILY IV Last administered on 12/10/16 09:22; Start 12/08/16 at 13:30; Stop 12/10/16 at 13:06; Status DC Folic Acid (Folic Acid) 1 mg DAILY PO Last administered on 12/17/16 10:06; Start 12/09/16 at 09:00 Leflunomide (Arava) 10 mg DAILY PO Last administered on 12/17/16 10:07; Start 12/09/16 at 09:00 Levofloxacin (Levaquin) 250 mg DAILY PO Last administered on 12/11/16 10:04; Start 12/09/16 at 09:00; Stop 12/11/16 at 16:09; Status DC Prednisone (Prednisone) 10 mg DAILY PO Last administered on 12/09/16 09:34; Start 12/09/16 at 09:00; Stop 12/09/16 at 15:26; Status DC Sennosides (Senna) 8.6 mg DAILY PO Last administered on 12/11/16 10:04; Start 12/09/16 at 09:00 Tramadol HCl (Ultram) 50 mg PRN Q6HRS PO ; Start 12/08/16 at 15:00; Stop at 00:47; Status DC Albuterol Sulfate (Ventolin Neb Soln) 2.5 mg PRN Q6HRS PRN NEB SHORTNESS OF BREATH Last administered on 12/09/16 19:25; Start 12/08/16 at 15:00 Meloxicam (Mobic) 15 mg DAILY PO Last administered on 12/09/16 09:33; Start 12/09/16 at 09:00; Stop 12/09/16 at 15:16; Status DC Non-Formulary Medication 1 tab BID PO ; Start 12/08/16 at 21:00; Stop 12/08/16 at 21:00; Status DC Tramadol HCl (Ultram) 50 mg PRN Q6HRS PRN PO MODERATE PAIN Last administered on 12/11/16 21:04; Start 12/09/16 at 00:47 Furosemide (Lasix) 20 mg 1X PRN PRN IV Blood transfusion; Start 12/09/16 at 12: 30; Stop 12/10/16 at 12:29; Status DC Hydralazine HCl (Apresoline) 10 mg PRN Q4HRS PRN IVP ELEVATED BP, SEE COMMENTS ; Start 12/09/16 at 15:15 Prednisone (Prednisone) 20 mg DAILY PO Last administered on 12/17/16 10:06; Start 12/11/16 at 09:00 Metoprolol Succinate (Toprol Xl) 12.5 mg DAILYWSUP PO Last administered on 12/10 18:29; Start 12/10/16 at 17:00; Stop 12/11/16 at 14:38; Status DC Nystatin 1 ronnie 1 ronnie BID TP Last administered on 12/17/16 09:00; Start at 15:30 Magnesium Sulfate/ Dextrose (Magnesium Sulfate PREMIX 2GM) 50 ml @ 25 mls/hr 1X ONCE IV Last administered on 12/11/16 13:31; Start 12/11/16 at 11:00; Stop 12/11/16 at 12:59; Status DC Potassium Chloride (Klor-Con) 40 meq BID PO Last administered on 12/11/16 21: 03; Start 12/11/16 at 11:00; Stop 12/11/16 at 23:55; Status DC Amoxicillin/ Clavulanate Potassium (Augmentin 500/ 125mg) 1 tab BID PO Last administered on 12/17/16 10:07; Start 12/11/16 at 12:00 Aspirin (Ecotrin) 81 mg DAILYWBKFT PO Last administered on 12/17/16 10:06; Start 12/11/16 at 12:30 Metoprolol Succinate (Toprol Xl) 25 mg DAILYWSUP PO Last administered on 17:33; Start 12/11/16 at 17:00 Albuterol/ Ipratropium (Duoneb) 3 ml RTQID NEB Last administered on 12/17/16 07:44; Start 12/13/16 at 12:00 Budesonide (Pulmicort) 0.5 mg RTBID NEB Last administered on 12/17/16 07:44; Start 12/13/16 at 11:00 Potassium Chloride (Klor-Con) 40 meq 1X ONCE PO Last administered on 16:05; Start 12/13/16 at 13:30; Stop 12/13/16 at 13:31; Status DC Montelukast Sodium (Singulair) 10 mg QHS PO Last administered on 12/16/16 20: 46; Start 12/14/16 at 21:00 Active Scripts Active Levaquin (Levofloxacin) 250 Mg Tablet 250 Mg PO DAILY Reported Senna Laxative (Sennosides) 8.6 Mg Tablet 8.6 Mg PO Tramadol Hcl 50 Mg Tablet 1 Tab PO PRN Q6HRS Proair Hfa Inhaler (Albuterol Sulfate) 8.5 Gm Hfa.aer.ad 1 Puff INH PRN Q6HRS PRN Meloxicam 15 Mg Tablet 1 Tab PO DAILY Prednisone 10 Mg Tablet 10 Mg PO DAILY Leflunomide 10 Mg Tablet 10 Mg PO Folic Acid 1 Mg Tablet 1 Tab PO DAILY Loperamide (Loperamide Hcl) 2 Mg Capsule 2 Mg PO PRN Q4HRS PRN Promethazine Hcl 12.5 Mg Tablet 12.5 Mg PO Q6H PRN Atorvastatin Calcium 20 Mg Tablet 20 Mg PO DAILY Clopidogrel (Clopidogrel Bisulfate) 75 Mg Tablet 75 Mg PO DAILY Losartan Potassium 50 Mg Tablet 50 Mg PO DAILY Ibuprofen 200 Mg Tablet 200 Mg PO Q6HRS PRN Nabumetone 500 Mg Tablet 1 Tab PO BID Lisinopril 10 Mg Tablet 10 Mg PO DAILY Omeprazole 40 Mg Capsule.dr 40 Mg PO DAILY Hydroxychloroquine Sulfate 200 Mg Tablet 1 Tab PO BID Vitals/I & O Vital Sign - Last 24 Hours 12/16/16 12/16/16 12/16/16 12/16/16 12:25 15:17 15:30 17:33 Temp 97.2 97.2 Pulse 91 91 Resp 16 B/P 117/58 117/58 Pulse Ox 99 O2 Delivery Room Air Room Air Nasal Cannula O2 Flow Rate 2.0 12/16/16 12/16/16 12/16/16 12/16/16 19:25 19:37 19:45 23:30 Temp 98.4 98.7 98.4 98.7 Pulse 79 72 Resp 20 18 B/P 106/57 107/59 Pulse Ox 94 95 94 O2 Delivery Room Air Room Air Room Air Room Air 12/17/16 12/17/16 12/17/16 12/17/16 03:44 07:45 07:46 10:08 Temp 97.9 98.3 97.9 98.3 Pulse 69 59 59 Resp 16 18 B/P 132/69 132/62 132/62 Pulse Ox 95 93 93 O2 Delivery Room Air Room Air Room Air 12/17/16 10:17 Temp 98.0 98.0 Resp 18 B/P 116/68 Pulse Ox 96 O2 Delivery Room Air Intake and Output 12/16/16 12/16/16 12/17/16 15:00 23:00 07:00 Intake Total 300 ml 100 ml Output Total 200 ml 450 ml Balance 100 ml -350 ml AYAKA DAILEY III DO Dec 17, 2016 12:01
== END 2016-12-17 12:15 | DRG 280 ==
LOC: ER 17:23 → ED HOLD 12-08 00:08 → 1 WEST ICU 12-08 00:08 → 2 SOUTH 12-08 23:14
PROVIDERS: ADMIT Internal Medicine Hematology & Oncology; ATTEND Internal Medicine Hematology & Oncology
PROC: 30233N1 Transfusion of Nonautologous Red Blood Cells into Peripheral Vein, Percutaneous Approach (ICD-10-PCS; principal; 2016-12-09)
DX: I21.4 Non-ST elevation (NSTEMI) myocardial infarction (principal); J96.00 Acute respiratory failure, unspecified whether with hypoxia or hypercapnia; I50.43 Acute on chronic combined systolic (congestive) and diastolic (congestive) heart failure; J18.9 Pneumonia, unspecified organism; I69.351 Hemiplegia and hemiparesis following cerebral infarction affecting right dominant side; R65.10 Systemic inflammatory response syndrome (SIRS) of non-infectious origin without acute organ dysfunction; D64.9 Anemia, unspecified; E78.5 Hyperlipidemia, unspecified; I11.0 Hypertensive heart disease with heart failure; I27.2 Other secondary pulmonary hypertension; J10.1 Influenza due to other identified influenza virus with other respiratory manifestations; J30.9 Allergic rhinitis, unspecified; J84.112 Idiopathic pulmonary fibrosis; K21.9 Gastro-esophageal reflux disease without esophagitis; M19.90 Unspecified osteoarthritis, unspecified site; T38.0X5A Adverse effect of glucocorticoids and synthetic analogues, initial encounter; Z82.3 Family history of stroke; Z88.2 Allergy status to sulfonamides; Z82.49 Family history of ischemic heart disease and other diseases of the circulatory system; Z87.891 Personal history of nicotine dependence
CPT/HCPCS: 36415; 71010; 80048; 80053; 80061; 80202; 83735; 83880; 84484; 85007; 85027; 85520; 85610; 85730; 86850; 86900; 86901; 86920; 87040; 87641; 87804; 93005; 93306; 94640; 94760; 96374; 96375; J2405; J2543; J2930; J3370; J7040; J7050; J7060; J7512; J7620; P9016; Q0169; 97110; 97116; 99285-25; J7030

== ENCOUNTER → 2017-01-17 | Outpatient (CLI) | payer MEDICARE, OTHER ==
[~2017-01-17] MED LIST changes: +FOLI1TAB16 PO; +LEFL10TA14 PO; +MELO-150 PO; +PRED-220 PO; +PROAIR HFA8.5 GM INH; +SENN8.6T11 PO; +TRAM50TA PO
--- NOTE | 2017-01-17 12:59 | KCIC ---
Examination: CT chest without contrast HISTORY History of interstitial lung disease. Followup COMPARISON 10/14/2026. TECHNIQUE Axial CT images of the chest were performed without contrast. Coronal and sagittal reformats were performed Exposure: One or more of the following dose reduction technique were utilized for this examination: 1. Automated exposure control. 2.Adjustment of MA and /or KV according to patient size. 3. Use of iterative reconstruction technique. Findings: Moderate cardiomegaly.Diffuse coronary artery calcifications over. The ascending aorta measures 3.7 centimeters in transverse dimension and 3.8 centimeters in AP dimension. Moderate size hiatal hernia is identified. Diffuse septal thickening identified in the bilateral lungs with reticular interstitial lung markings in the bilateral lungs. Questionable mild honeycombing changes identified in the right lower lobe of the lung, best visualized on series 2 image #24.Mild traction bronchiectatic changes identified in the left upper lobe, right upper lobe region. No evidence of pleural effusion or pneumothorax. The visualized non contrasted liver, spleen, adrenals grossly appears unremarkable.The gallbladder is mildly distended. Moderate fatty atrophic changes of the pancreas. Moderate to severe degenerative changes identified in the thoracic spine. IMPRESSION - Diffuse bilateral septal thickening with reticular interstitial markings identified in the bilateral lungs with questionable honeycombing changes identified in the right lower lobe of the lung differential includes usual interstitial pneumonitis, fibrotic nonspecific interstitial pneumonia, interstitial fibrosis, grossly similar to prior exam. - Ectatic appearing ascending aorta. - Coronary artery calcifications. - Moderate size hiatal hernia. Electronically signed by: Eloy Diego (Jan 17, 2017 12:58:07)
== END | disposition home or self-care (01) ==
LOC: KCIC CT 09:15
PROVIDERS: ATTEND Internal Medicine Pulmonary Disease
DX: J84.9 Interstitial pulmonary disease, unspecified (principal)
CPT/HCPCS: 71250